=== PATIENT | male | born 1960 | race Hispanic/Latino ===

== ENCOUNTER 2021-03-03 22:07 | Inpatient (IN) | payer SELFPAY ==
[2021-03-03] MEDS ORDERED: Dextrose 5% in Water 1,000 ML IV PRN (22:33)
[2021-03-03] MEDS ORDERED: Calcium Carbonate 500 MG ChewTAB PO PRN (22:33)
[2021-03-03] MEDS ORDERED: HYDROcodone/Acetaminophen 5/325 mg Tablet PO PRN (22:33)
[2021-03-03] MEDS ORDERED: Ondansetron PF 4 MG/2 ML Vial IVP PRN (22:33)
[2021-03-03] MEDS ORDERED: Ventolin HFA Inhaler 60 PUFF INHALER INH PRN (22:37)
[2021-03-03] MEDS: Guaifenesin DM 100-10/5 ML UDCUP PO PRN (23:21)
[2021-03-04 04:20] LABS: #Monocytes 0.3 10x3/uL (0.0-1.1); #Neutrophils 4.9 10x3/uL (1.5-8.4); %Lymphocytes 4.9 % (18.0-47.0); %Monocytes 4.5 % (0.0-10.0); %Neutrophils 89.3 % (40.0-75.0); Mean Corpuscular HGB CONC 33.8 g/dL (32.0-36.0); Mean Corpuscular Hemoglobin 30.5 pg (27.0-33.0); Mean Corpuscular Volume 90.1 fl (81.2-95.1); Mean Platelet Volume 10.8 fl (7.4-10.4); Platelet Count 192 10x3/uL (150-450); RBC Distribution Width 11.9 % (11.5-14.5); Red Blood Cell (RBC) Count 3.94 10x6/uL (4.32-5.72); White Blood Cell (WBC) Count 5.5 10x3/uL (3.5-10.5)
[2021-03-04 04:37] LABS: ALT (SGPT) 17 U/L (8-55); AST (SGOT) 25 U/L (5-34); Alkaline Phosphatase 51 U/L (40-110); Anion Gap 14 mmol/L (10-20); BUN (Urea Nitrogen) 22 mg/dL (8.4-25.7); Bilirubin, Total 0.5 mg/dL (0.2-1.2); CRP (Inflammatory) 6.75 mg/dL (= or < 0.5); Calc. Creatinine Clearance 87 mL/min (70-130); Calcium 8.6 mg/dL (7.8-10.44); Carbon Dioxide 20 mmol/L (22-29); Chloride 107 mmol/L (98-107); Globulin 3.1 g/dL (2.4-3.5); Glucose 248 mg/dL (70-105); Potassium 4.1 mmol/L (3.5-5.1); Protein, Total 6.1 g/dL (6.0-8.3); Sodium 137 mmol/L (136-145)
[2021-03-04] MEDS: HumaLOG 300 UNITS/3 ML VIAL SC PRN ×4 (06:12→22:13)
[2021-03-04] MEDS ORDERED: metFORMIN 500 MG TAB PO SCH (08:00)
[2021-03-04] MEDS: Ascorbic Acid 500 mg Chewable Tablet PO SCH (08:33)
[2021-03-04] MEDS: Aspirin 81 mg Enteric Coated Tablet PO SCH (08:33)
[2021-03-04] MEDS: Enoxaparin Sodium 40 MG/0.4 ML SYRINGE SC SCH (08:33)
[2021-03-04] MEDS: Cholecalciferol 1,000 UNITS (25 MCG) TAB PO SCH (08:34)
[2021-03-04] MEDS: Lantus 1000 UNITS/10 ML VIAL SC SCH (08:34)
[2021-03-04] MEDS: Benzonatate 100 MG CAP PO SCH ×3 (08:34→20:05)
[2021-03-04] MEDS: Dexamethasone 4 mg/ml Vial SLOW IVP SCH (08:35)
[2021-03-04] MEDS ORDERED: Polyethylene Glycol 3350 17 GM Packet PO PRN (08:46)
[2021-03-04] MEDS ORDERED: REMDESIVIR 200 MG in Sodium Chloride 0.9% 250 ML 210 ML IV SCH (09:00)
[2021-03-04 09:10] LABS: Actual Bicarbonate (HCO3a) 21.9 mEq/L (22-28); Base Excess (BEa) -0.4 mEq/L (-2.0 to +3.0); CO2 Tension 29.6 mmHg (35.0-45.0); Calcium, Ionized (arterial) 1.11 mmol/L (1.12-1.30); Carboxyhemoglobin (COHb) 0.3 gm% (0.0-3.0); Critical Notified Whom: RN; Hemoglobin (Hb) 13.2 g/dL (14.0-18.0); O2 Tension (PaO2), arterial 47.2 mmHg (80.0-100.0); Potassium - ABG Lab 3.9 mmol/L (3.70-5.30); Puncture Site RRA; pH, Arterial 7.49 (7.35-7.45)
[2021-03-04] MEDS: BARICITINIB 2 MG TAB PO SCH (09:13)
[2021-03-04] MEDS: Polyethylene Glycol 3350 17 GM Packet PO SCH (09:40)
[2021-03-04 15:22] LABS: Legionella Urinary Ag Negative (Negative); Strep pneumo Urine Ag NEGATIVE (NEGATIVE)
[2021-03-05 04:28] LABS: ALT (SGPT) 18 U/L (8-55); AST (SGOT) 25 U/L (5-34); Albumin 2.9 g/dL (3.5-5.0); Alkaline Phosphatase 49 U/L (40-110); Anion Gap 14 mmol/L (10-20); BUN (Urea Nitrogen) 23 mg/dL (8.4-25.7); Bilirubin, Total 0.6 mg/dL (0.2-1.2); Calc. Creatinine Clearance 101 mL/min (70-130); Calcium 8.5 mg/dL (7.8-10.44); Carbon Dioxide 20 mmol/L (22-29); Chloride 109 mmol/L (98-107); Globulin 2.9 g/dL (2.4-3.5); Glucose 145 mg/dL (70-105); Potassium 3.9 mmol/L (3.5-5.1); Protein, Total 5.8 g/dL (6.0-8.3); Sodium 139 mmol/L (136-145)
[2021-03-05 04:56] LABS: Hemoglobin 11.8 g/dL (13.5-17.5); Mean Corpuscular HGB CONC 34.9 g/dL (32.0-36.0); Mean Corpuscular Volume 88.7 fl (81.2-95.1); Mean Platelet Volume 10.3 fl (7.4-10.4); Platelet Count 233 10x3/uL (150-450); RBC Distribution Width 12.1 % (11.5-14.5); Red Blood Cell (RBC) Count 3.81 10x6/uL (4.32-5.72); White Blood Cell (WBC) Count 4.7 10x3/uL (3.5-10.5)
[2021-03-05 06:51] LABS: Band 9 % (5-11); Lymphocytes 6 % (21-51); Monocytes 2 % (0-10)
[2021-03-05 06:52] LABS: Reactive Lymphocytes 5 % (0-10)
[2021-03-05 06:53] LABS: Large Platelets SLIGHT; Neutrophil 78 % (42-75)
[2021-03-05 06:54] LABS: MDiff Complete? YES; Platelet Morphology Comment Appears Adequate; RBC Morphology Normal
[2021-03-05 07:59] LABS: Actual Bicarbonate (HCO3a) 24.1 mEq/L (22-28); Base Excess (BEa) 1.9 mEq/L (-2.0 to +3.0); CO2 Tension 30.8 mmHg (35.0-45.0); Calcium, Ionized (arterial) 1.12 mmol/L (1.12-1.30); Carboxyhemoglobin (COHb) 0.3 gm% (0.0-3.0); Hemoglobin (Hb) 13.6 g/dL (14.0-18.0); Potassium - ABG Lab 3.7 mmol/L (3.70-5.30); Puncture Site RRA; pH, Arterial 7.51 (7.35-7.45)
[2021-03-05] MEDS: Dexamethasone 4 mg/ml Vial SLOW IVP SCH (08:11)
[2021-03-05] MEDS: Aspirin 81 mg Enteric Coated Tablet PO SCH (08:12)
[2021-03-05] MEDS: Enoxaparin Sodium 40 MG/0.4 ML SYRINGE SC SCH (08:12)
[2021-03-05] MEDS: Cholecalciferol 1,000 UNITS (25 MCG) TAB PO SCH (08:12)
[2021-03-05] MEDS: BARICITINIB 2 MG TAB PO SCH (08:12)
[2021-03-05] MEDS: Ascorbic Acid 500 mg Chewable Tablet PO SCH (08:12)
[2021-03-05] MEDS: Benzonatate 100 MG CAP PO SCH ×3 (08:12→20:56)
[2021-03-05] MEDS: Lantus 1000 UNITS/10 ML VIAL SC SCH (08:13)
[2021-03-05] MEDS: Polyethylene Glycol 3350 17 GM Packet PO SCH (08:13)
[2021-03-05] MEDS ORDERED: REMDESIVIR 100 MG in Sodium Chloride 0.9% 250 ML 230 ML IV SCH (09:00)
[2021-03-05] MEDS: Guaifenesin DM 100-10/5 ML UDCUP PO PRN ×2 (17:21→20:57)
[2021-03-06 05:09] LABS: #Monocytes 0.3 10x3/uL (0.0-1.1); #Neutrophils 6.2 10x3/uL (1.5-8.4); %Eosinophils 0.1 % (0.0-6.0); %Lymphocytes 7.7 % (18.0-47.0); %Monocytes 4.5 % (0.0-10.0); %Neutrophils 87.1 % (40.0-75.0); Hemoglobin 12.9 g/dL (13.5-17.5); Mean Corpuscular HGB CONC 35.2 g/dL (32.0-36.0); Mean Corpuscular Hemoglobin 31.2 pg (27.0-33.0); Mean Corpuscular Volume 88.6 fl (81.2-95.1); Mean Platelet Volume 10.3 fl (7.4-10.4); Platelet Count 280 10x3/uL (150-450); RBC Distribution Width 11.6 % (11.5-14.5); Red Blood Cell (RBC) Count 4.13 10x6/uL (4.32-5.72); White Blood Cell (WBC) Count 7.1 10x3/uL (3.5-10.5)
[2021-03-06 05:43] LABS: ALT (SGPT) 20 U/L (8-55); AST (SGOT) 32 U/L (5-34); Alkaline Phosphatase 59 U/L (40-110); Anion Gap 13 mmol/L (10-20); BUN (Urea Nitrogen) 23 mg/dL (8.4-25.7); Bilirubin, Total 0.8 mg/dL (0.2-1.2); Calc. Creatinine Clearance 110 mL/min (70-130); Calcium 8.2 mg/dL (7.8-10.44); Carbon Dioxide 22 mmol/L (22-29); Chloride 105 mmol/L (98-107); Globulin 2.6 g/dL (2.4-3.5); Glucose 91 mg/dL (70-105); Potassium 3.9 mmol/L (3.5-5.1); Protein, Total 5.6 g/dL (6.0-8.3); Sodium 136 mmol/L (136-145)
[2021-03-06] MEDS: Acetaminophen 325 MG TAB PO PRN ×2 (06:30→21:57)
[2021-03-06] MEDS: Dexamethasone 4 mg/ml Vial SLOW IVP SCH (07:52)
[2021-03-06] MEDS: Cholecalciferol 1,000 UNITS (25 MCG) TAB PO SCH (07:52)
[2021-03-06] MEDS: Enoxaparin Sodium 40 MG/0.4 ML SYRINGE SC SCH (07:52)
[2021-03-06] MEDS: BARICITINIB 2 MG TAB PO SCH (07:52)
[2021-03-06] MEDS: Aspirin 81 mg Enteric Coated Tablet PO SCH (07:52)
[2021-03-06] MEDS: Ascorbic Acid 500 mg Chewable Tablet PO SCH (07:52)
[2021-03-06] MEDS: Benzonatate 100 MG CAP PO SCH ×3 (07:52→21:57)
[2021-03-06] MEDS: Lantus 1000 UNITS/10 ML VIAL SC SCH (07:53)
[2021-03-06] MEDS: Polyethylene Glycol 3350 17 GM Packet PO SCH (07:53)
[2021-03-06] MEDS: HumaLOG 300 UNITS/3 ML VIAL SC PRN ×2 (13:07→17:21)
[2021-03-06] MEDS ORDERED: Lorazepam 2 MG/ML VIAL SLOW IVP PRN (17:31)
[2021-03-06] MEDS: Melatonin 3 MG TAB PO PRN (21:57)
[2021-03-07] MEDS: Acetaminophen 325 MG TAB PO PRN ×2 (03:45→20:35)
[2021-03-07] MEDS: Guaifenesin DM 100-10/5 ML UDCUP PO PRN (03:45)
[2021-03-07 04:10] LABS: #Eosinphils 0.1 10x3/uL (0.0-0.5); #Monocytes 0.2 10x3/uL (0.0-1.1); #Neutrophils 6.8 10x3/uL (1.5-8.4); %Basophils 0.1 % (0.0-2.0); %Eosinophils 0.9 % (0.0-6.0); %Lymphocytes 5.8 % (18.0-47.0); %Monocytes 3.1 % (0.0-10.0); %Neutrophils 89.4 % (40.0-75.0); Hemoglobin 13.9 g/dL (13.5-17.5); Mean Corpuscular HGB CONC 34.1 g/dL (32.0-36.0); Mean Corpuscular Hemoglobin 30.8 pg (27.0-33.0); Mean Corpuscular Volume 90.3 fl (81.2-95.1); Mean Platelet Volume 10.3 fl (7.4-10.4); Platelet Count 290 10x3/uL (150-450); Red Blood Cell (RBC) Count 4.52 10x6/uL (4.32-5.72); White Blood Cell (WBC) Count 7.6 10x3/uL (3.5-10.5)
[2021-03-07 04:14] LABS: ALT (SGPT) 24 U/L (8-55); AST (SGOT) 31 U/L (5-34); Albumin 3.1 g/dL (3.5-5.0); Alkaline Phosphatase 67 U/L (40-110); Anion Gap 17 mmol/L (10-20); BUN (Urea Nitrogen) 19 mg/dL (8.4-25.7); Bilirubin, Total 0.9 mg/dL (0.2-1.2); Calc. Creatinine Clearance 103 mL/min (70-130); Calcium 9.1 mg/dL (7.8-10.44); Carbon Dioxide 24 mmol/L (22-29); Chloride 103 mmol/L (98-107); Globulin 3.6 g/dL (2.4-3.5); Glucose 88 mg/dL (70-105); Potassium 4.1 mmol/L (3.5-5.1); Protein, Total 6.7 g/dL (6.0-8.3); Sodium 140 mmol/L (136-145)
[2021-03-07] MEDS: Aspirin 81 mg Enteric Coated Tablet PO SCH (07:18)
[2021-03-07] MEDS: Ascorbic Acid 500 mg Chewable Tablet PO SCH (07:18)
[2021-03-07] MEDS: Cholecalciferol 1,000 UNITS (25 MCG) TAB PO SCH (07:18)
[2021-03-07] MEDS: Dexamethasone 4 mg/ml Vial SLOW IVP SCH (07:19)
[2021-03-07] MEDS: Enoxaparin Sodium 40 MG/0.4 ML SYRINGE SC SCH (07:19)
[2021-03-07] MEDS: Benzonatate 100 MG CAP PO SCH ×3 (07:19→20:35)
[2021-03-07] MEDS: BARICITINIB 2 MG TAB PO SCH (07:19)
[2021-03-07] MEDS: Lantus 1000 UNITS/10 ML VIAL SC SCH (07:20)
[2021-03-07] MEDS: Polyethylene Glycol 3350 17 GM Packet PO SCH (07:21)
[2021-03-07] MEDS: Melatonin 3 MG TAB PO PRN (20:35)
[2021-03-07] MEDS: Loratadine 10 MG TAB PO PRN (23:15)
[2021-03-07] MEDS: HumaLOG 300 UNITS/3 ML VIAL SC PRN (23:36)
[2021-03-08] MEDS: Guaifenesin DM 100-10/5 ML UDCUP PO PRN ×2 (00:42→19:42)
[2021-03-08 04:30] LABS: ALT (SGPT) 19 U/L (8-55); AST (SGOT) 24 U/L (5-34); Albumin 2.7 g/dL (3.5-5.0); Alkaline Phosphatase 71 U/L (40-110); Anion Gap 13 mmol/L (10-20); BUN (Urea Nitrogen) 31 mg/dL (8.4-25.7); Bilirubin, Total 0.5 mg/dL (0.2-1.2); Calc. Creatinine Clearance 97 mL/min (70-130); Calcium 8.4 mg/dL (7.8-10.44); Carbon Dioxide 23 mmol/L (22-29); Chloride 101 mmol/L (98-107); Globulin 3.1 g/dL (2.4-3.5); Glucose 277 mg/dL (70-105); Potassium 4.2 mmol/L (3.5-5.1); Protein, Total 5.8 g/dL (6.0-8.3); Sodium 133 mmol/L (136-145)
[2021-03-08 04:36] LABS: #Eosinphils 0.1 10x3/uL (0.0-0.5); #Monocytes 0.4 10x3/uL (0.0-1.1); #Neutrophils 7.8 10x3/uL (1.5-8.4); %Basophils 0.1 % (0.0-2.0); %Eosinophils 0.6 % (0.0-6.0); %Lymphocytes 3.7 % (18.0-47.0); %Monocytes 4.8 % (0.0-10.0); %Neutrophils 90.1 % (40.0-75.0); Hemoglobin 12.1 g/dL (13.5-17.5); Mean Corpuscular HGB CONC 33.3 g/dL (32.0-36.0); Mean Corpuscular Hemoglobin 30.3 pg (27.0-33.0); Mean Platelet Volume 10.6 fl (7.4-10.4); Platelet Count 284 10x3/uL (150-450); RBC Distribution Width 11.9 % (11.5-14.5); Red Blood Cell (RBC) Count 3.99 10x6/uL (4.32-5.72); White Blood Cell (WBC) Count 8.6 10x3/uL (3.5-10.5)
[2021-03-08] MEDS: HumaLOG 300 UNITS/3 ML VIAL SC PRN ×4 (05:41→23:59)
[2021-03-08] MEDS: Dexamethasone 4 mg/ml Vial SLOW IVP SCH (09:31)
[2021-03-08] MEDS: Enoxaparin Sodium 40 MG/0.4 ML SYRINGE SC SCH (09:31)
[2021-03-08] MEDS: Polyethylene Glycol 3350 17 GM Packet PO SCH (09:31)
[2021-03-08] MEDS: BARICITINIB 2 MG TAB PO SCH (09:32)
[2021-03-08] MEDS: Cholecalciferol 1,000 UNITS (25 MCG) TAB PO SCH (09:32)
[2021-03-08] MEDS: Benzonatate 100 MG CAP PO SCH ×3 (09:32→19:42)
[2021-03-08] MEDS: Aspirin 81 mg Enteric Coated Tablet PO SCH (09:32)
[2021-03-08] MEDS: Lantus 1000 UNITS/10 ML VIAL SC SCH (09:37)
[2021-03-08] MEDS: Ascorbic Acid 500 mg Chewable Tablet PO SCH (09:37)
[2021-03-08] MEDS: Melatonin 3 MG TAB PO PRN (19:42)
[2021-03-08] MEDS: Loratadine 10 MG TAB PO PRN (19:42)
[2021-03-08] MEDS: Acetaminophen 325 MG TAB PO PRN (19:43)
[2021-03-09] MEDS: Guaifenesin DM 100-10/5 ML UDCUP PO PRN ×3 (00:57→20:10)
[2021-03-09] MEDS: HumaLOG 300 UNITS/3 ML VIAL SC PRN ×2 (04:08→13:00)
[2021-03-09 04:22] LABS: #Eosinphils 0.1 10x3/uL (0.0-0.5); #Monocytes 0.4 10x3/uL (0.0-1.1); #Neutrophils 7.8 10x3/uL (1.5-8.4); %Basophils 0.1 % (0.0-2.0); %Eosinophils 0.9 % (0.0-6.0); %Lymphocytes 2.9 % (18.0-47.0); %Monocytes 4.1 % (0.0-10.0); %Neutrophils 91.1 % (40.0-75.0); Hemoglobin 12.1 g/dL (13.5-17.5); Mean Corpuscular HGB CONC 33.8 g/dL (32.0-36.0); Mean Corpuscular Hemoglobin 30.4 pg (27.0-33.0); Mean Corpuscular Volume 89.9 fl (81.2-95.1); Platelet Count 320 10x3/uL (150-450); RBC Distribution Width 11.9 % (11.5-14.5); Red Blood Cell (RBC) Count 3.98 10x6/uL (4.32-5.72); White Blood Cell (WBC) Count 8.6 10x3/uL (3.5-10.5)
[2021-03-09 04:25] LABS: ALT (SGPT) 16 U/L (8-55); AST (SGOT) 16 U/L (5-34); Albumin 2.7 g/dL (3.5-5.0); Alkaline Phosphatase 70 U/L (40-110); Anion Gap 17 mmol/L (10-20); BUN (Urea Nitrogen) 25 mg/dL (8.4-25.7); Bilirubin, Total 0.6 mg/dL (0.2-1.2); Calc. Creatinine Clearance 114 mL/min (70-130); Calcium 8.4 mg/dL (7.8-10.44); Carbon Dioxide 22 mmol/L (22-29); Chloride 101 mmol/L (98-107); Globulin 2.7 g/dL (2.4-3.5); Glucose 214 mg/dL (70-105); Potassium 4.4 mmol/L (3.5-5.1); Protein, Total 5.4 g/dL (6.0-8.3); Sodium 136 mmol/L (136-145)
[2021-03-09] MEDS: Acetaminophen 325 MG TAB PO PRN ×2 (06:37→13:09)
[2021-03-09] MEDS: Lantus 1000 UNITS/10 ML VIAL SC SCH (08:30)
[2021-03-09] MEDS: Polyethylene Glycol 3350 17 GM Packet PO SCH (08:30)
[2021-03-09] MEDS: Dexamethasone 4 mg/ml Vial SLOW IVP SCH (08:30)
[2021-03-09] MEDS: Ascorbic Acid 500 mg Chewable Tablet PO SCH (08:30)
[2021-03-09] MEDS: Cholecalciferol 1,000 UNITS (25 MCG) TAB PO SCH (08:30)
[2021-03-09] MEDS: Enoxaparin Sodium 40 MG/0.4 ML SYRINGE SC SCH (08:31)
[2021-03-09] MEDS: Aspirin 81 mg Enteric Coated Tablet PO SCH (08:31)
[2021-03-09] MEDS: Benzonatate 100 MG CAP PO SCH ×3 (08:31→20:11)
[2021-03-09] MEDS: BARICITINIB 2 MG TAB PO SCH (08:31)
[2021-03-09 14:47] LABS: Actual Bicarbonate (HCO3a) 28.2 mEq/L (22-28); Base Excess (BEa) 5.5 mEq/L (-2.0 to +3.0); CO2 Tension 34.7 mmHg (35.0-45.0); Calcium, Ionized (arterial) 1.11 mmol/L (1.12-1.30); Carboxyhemoglobin (COHb) 0.3 gm% (0.0-3.0); Critical Notified Whom: MD; Potassium - ABG Lab 4.5 mmol/L (3.70-5.30); Puncture Site RRA; pH, Arterial 7.53 (7.35-7.45)
[2021-03-09 14:55] LABS: ALV-art Gradient 391.725 mmHg (0-20)
[2021-03-09] MEDS: Dexamethasone 20 MG/5 ML VIAL SLOW IVP SCH (20:15)
[2021-03-09] MEDS: Enoxaparin Sodium 80 MG/0.8 ML SYRINGE SC SCH (23:22)
[2021-03-10] MEDS: HumaLOG 300 UNITS/3 ML VIAL SC PRN ×4 (00:46→17:09)
[2021-03-10] MEDS: Acetaminophen 325 MG TAB PO PRN (03:10)
[2021-03-10] MEDS: Guaifenesin DM 100-10/5 ML UDCUP PO PRN ×2 (03:10→14:15)
[2021-03-10 04:20] LABS: Anion Gap 17 mmol/L (10-20); BUN (Urea Nitrogen) 25 mg/dL (8.4-25.7); Calc. Creatinine Clearance 111 mL/min (70-130); Calcium 8.6 mg/dL (7.8-10.44); Carbon Dioxide 21 mmol/L (22-29); Chloride 104 mmol/L (98-107); Glucose 305 mg/dL (70-105); Sodium 137 mmol/L (136-145)
[2021-03-10 04:35] LABS: Potassium 5.4 mmol/L (3.5-5.1)
[2021-03-10] MEDS: Dexamethasone 20 MG/5 ML VIAL SLOW IVP SCH ×3 (05:29→20:23)
[2021-03-10] MEDS ORDERED: Lantus 1000 UNITS/10 ML VIAL SC SCH (08:00)
[2021-03-10] MEDS: Aspirin 81 mg Enteric Coated Tablet PO SCH (08:39)
[2021-03-10] MEDS: Cholecalciferol 1,000 UNITS (25 MCG) TAB PO SCH (08:39)
[2021-03-10] MEDS: Benzonatate 100 MG CAP PO SCH ×3 (08:39→20:23)
[2021-03-10] MEDS: BARICITINIB 2 MG TAB PO SCH (08:39)
[2021-03-10] MEDS: Enoxaparin Sodium 80 MG/0.8 ML SYRINGE SC SCH ×2 (08:39→20:24)
[2021-03-10] MEDS: Polyethylene Glycol 3350 17 GM Packet PO SCH (08:39)
[2021-03-10] MEDS: Ascorbic Acid 500 mg Chewable Tablet PO SCH (08:39)
[2021-03-10] MEDS: Lantus 1000 UNITS/10 ML VIAL SC SCH (08:42)
[2021-03-10 09:14] LABS: Actual Bicarbonate (HCO3a) 28.7 mEq/L (22-28); Base Excess (BEa) 5.6 mEq/L (-2.0 to +3.0); CO2 Tension 36.6 mmHg (35.0-45.0); Calcium, Ionized (arterial) 1.15 mmol/L (1.12-1.30); Carboxyhemoglobin (COHb) 0.1 gm% (0.0-3.0); Hemoglobin (Hb) 13.3 g/dL (14.0-18.0); O2 Tension (PaO2), arterial 47.3 mmHg (80.0-100.0); Potassium - ABG Lab 4.3 mmol/L (3.70-5.30); Puncture Site LRA; pH, Arterial 7.51 (7.35-7.45)
[2021-03-11 04:24] LABS: #Monocytes 0.4 10x3/uL (0.0-1.1); #Neutrophils 7.7 10x3/uL (1.5-8.4); %Basophils 0.1 % (0.0-2.0); %Eosinophils 0.1 % (0.0-6.0); %Lymphocytes 2.3 % (18.0-47.0); %Monocytes 4.6 % (0.0-10.0); %Neutrophils 92.3 % (40.0-75.0); Hemoglobin 12.2 g/dL (13.5-17.5); Mean Corpuscular HGB CONC 33.4 g/dL (32.0-36.0); Mean Corpuscular Hemoglobin 30.3 pg (27.0-33.0); Mean Corpuscular Volume 90.6 fl (81.2-95.1); Mean Platelet Volume 10.7 fl (7.4-10.4); Platelet Count 385 10x3/uL (150-450); RBC Distribution Width 12.1 % (11.5-14.5); Red Blood Cell (RBC) Count 4.03 10x6/uL (4.32-5.72); White Blood Cell (WBC) Count 8.3 10x3/uL (3.5-10.5)
[2021-03-11 04:46] LABS: Anion Gap 18 mmol/L (10-20); BUN (Urea Nitrogen) 30 mg/dL (8.4-25.7); Calc. Creatinine Clearance 124 mL/min (70-130); Calcium 8.9 mg/dL (7.8-10.44); Carbon Dioxide 22 mmol/L (22-29); Chloride 104 mmol/L (98-107); Glucose 228 mg/dL (70-105); Potassium 4.6 mmol/L (3.5-5.1); Sodium 139 mmol/L (136-145)
[2021-03-11] MEDS: Dexamethasone 20 MG/5 ML VIAL SLOW IVP SCH (05:31)
[2021-03-11] MEDS: HumaLOG 300 UNITS/3 ML VIAL SC PRN ×2 (05:32→08:42)
[2021-03-11 08:17] LABS: Actual Bicarbonate (HCO3a) 28.9 mEq/L (22-28); Base Excess (BEa) 5.9 mEq/L (-2.0 to +3.0); CO2 Tension 36.2 mmHg (35.0-45.0); Calcium, Ionized (arterial) 1.13 mmol/L (1.12-1.30); Carboxyhemoglobin (COHb) 0.3 gm% (0.0-3.0); Hemoglobin (Hb) 12.6 g/dL (14.0-18.0); O2 Tension (PaO2), arterial 70.3 mmHg (80.0-100.0); Potassium - ABG Lab 4.4 mmol/L (3.70-5.30); Puncture Site LRA; pH, Arterial 7.52 (7.35-7.45)
[2021-03-11] MEDS: Enoxaparin Sodium 80 MG/0.8 ML SYRINGE SC SCH ×2 (08:40→20:11)
[2021-03-11] MEDS: BARICITINIB 2 MG TAB PO SCH (08:40)
[2021-03-11] MEDS: Benzonatate 100 MG CAP PO SCH ×3 (08:40→20:12)
[2021-03-11] MEDS: Ascorbic Acid 500 mg Chewable Tablet PO SCH (08:40)
[2021-03-11] MEDS: Cholecalciferol 1,000 UNITS (25 MCG) TAB PO SCH (08:40)
[2021-03-11] MEDS: Aspirin 81 mg Enteric Coated Tablet PO SCH (08:40)
[2021-03-11] MEDS: Polyethylene Glycol 3350 17 GM Packet PO SCH (08:41)
[2021-03-11] MEDS: Lantus 1000 UNITS/10 ML VIAL SC SCH (08:42)
[2021-03-11] MEDS: Guaifenesin DM 100-10/5 ML UDCUP PO PRN (21:10)
[2021-03-11] MEDS: Acetaminophen 325 MG TAB PO PRN (21:10)
[2021-03-12 04:05] LABS: #Eosinphils 0.3 10x3/uL (0.0-0.5); #Monocytes 0.5 10x3/uL (0.0-1.1); #Neutrophils 12.8 10x3/uL (1.5-8.4); %Basophils 0.1 % (0.0-2.0); %Eosinophils 1.8 % (0.0-6.0); %Lymphocytes 2.6 % (18.0-47.0); %Monocytes 3.6 % (0.0-10.0); %Neutrophils 91.1 % (40.0-75.0); Hemoglobin 13.8 g/dL (13.5-17.5); Mean Corpuscular HGB CONC 33.2 g/dL (32.0-36.0); Mean Corpuscular Hemoglobin 30.6 pg (27.0-33.0); Mean Corpuscular Volume 92.2 fl (81.2-95.1); Mean Platelet Volume 10.1 fl (7.4-10.4); Platelet Count 442 10x3/uL (150-450); RBC Distribution Width 12.2 % (11.5-14.5); Red Blood Cell (RBC) Count 4.51 10x6/uL (4.32-5.72)
[2021-03-12 04:20] LABS: Anion Gap 18 mmol/L (10-20); BUN (Urea Nitrogen) 33 mg/dL (8.4-25.7); Calc. Creatinine Clearance 109 mL/min (70-130); Calcium 9.2 mg/dL (7.8-10.44); Carbon Dioxide 26 mmol/L (22-29); Chloride 103 mmol/L (98-107); Glucose 117 mg/dL (70-105); Potassium 5.5 mmol/L (3.5-5.1); Sodium 141 mmol/L (136-145)
[2021-03-12] MEDS: Guaifenesin DM 100-10/5 ML UDCUP PO PRN (04:38)
[2021-03-12 08:30] LABS: Actual Bicarbonate (HCO3a) 28.5 mEq/L (22-28); Base Excess (BEa) 5.5 mEq/L (-2.0 to +3.0); CO2 Tension 36.1 mmHg (35.0-45.0); Calcium, Ionized (arterial) 1.12 mmol/L (1.12-1.30); Carboxyhemoglobin (COHb) 0.8 gm% (0.0-3.0); Hemoglobin (Hb) 14.6 g/dL (14.0-18.0); O2 Tension (PaO2), arterial 49.7 mmHg (80.0-100.0); Potassium - ABG Lab 4.2 mmol/L (3.70-5.30); Puncture Site RRA; pH, Arterial 7.52 (7.35-7.45)
[2021-03-12 08:34] LABS: ALV-art Gradient 582.525 mmHg (0-20)
[2021-03-12] MEDS: Dexamethasone 20 MG/5 ML VIAL SLOW IVP SCH (10:52)
[2021-03-12] MEDS: Enoxaparin Sodium 80 MG/0.8 ML SYRINGE SC SCH ×2 (10:53→20:23)
[2021-03-12] MEDS: Cholecalciferol 1,000 UNITS (25 MCG) TAB PO SCH (10:54)
[2021-03-12] MEDS: BARICITINIB 2 MG TAB PO SCH (10:54)
[2021-03-12] MEDS: Aspirin 81 mg Enteric Coated Tablet PO SCH (10:54)
[2021-03-12] MEDS: Benzonatate 100 MG CAP PO SCH ×3 (10:54→20:23)
[2021-03-12] MEDS: Ascorbic Acid 500 mg Chewable Tablet PO SCH (10:54)
[2021-03-12] MEDS: Lantus 1000 UNITS/10 ML VIAL SC SCH (10:55)
[2021-03-12] MEDS: Polyethylene Glycol 3350 17 GM Packet PO SCH (10:55)
[2021-03-12] MEDS ORDERED: Lidocaine 1% PF 5 ML VIAL ONE (11:45)
[2021-03-12] MEDS ORDERED: Sodium Bicarbonate 2.5 MEQ/5 ML VIAL ONE (11:46)
[2021-03-12] MEDS: HumaLOG 300 UNITS/3 ML VIAL SC PRN ×2 (15:00→21:10)
[2021-03-13 08:30] LABS: Anion Gap 13 mmol/L (10-20); BUN (Urea Nitrogen) 33 mg/dL (8.4-25.7); Calc. Creatinine Clearance 115 mL/min (70-130); Calcium 8.7 mg/dL (7.8-10.44); Carbon Dioxide 27 mmol/L (22-29); Chloride 103 mmol/L (98-107); Glucose 203 mg/dL (70-105); Potassium 4.5 mmol/L (3.5-5.1); Sodium 138 mmol/L (136-145)
[2021-03-13] MEDS ORDERED: Propofol 1,000 MG/100 ML VIAL IV ONE (09:07)
[2021-03-13 09:51] LABS: CO2 Tension 34.9 mmHg (35.0-45.0)
[2021-03-13] MEDS: Dexamethasone 20 MG/5 ML VIAL SLOW IVP SCH (10:30)
[2021-03-13] MEDS: Polyethylene Glycol 3350 17 GM Packet PO SCH (10:31)
[2021-03-13] MEDS: Ascorbic Acid 500 mg Chewable Tablet PO SCH (10:31)
[2021-03-13] MEDS: Aspirin 81 mg Enteric Coated Tablet PO SCH (10:31)
[2021-03-13] MEDS: Lantus 1000 UNITS/10 ML VIAL SC SCH (10:32)
[2021-03-13] MEDS: Benzonatate 100 MG CAP PO SCH ×3 (10:33→20:17)
[2021-03-13] MEDS: Cholecalciferol 1,000 UNITS (25 MCG) TAB PO SCH (10:35)
[2021-03-13] MEDS ORDERED: DISCONTINUE PREVIOUS NARCOTIC PAIN MEDICATIONS AND BENZODIAZEPINES FS SCH (10:45)
[2021-03-13] MEDS ORDERED: Morphine 2 MG/ML VIAL SLOW IVP PRN (10:45)
[2021-03-13] MEDS ORDERED: Propofol BOLUS 1,000 MG/100 ML VIAL IV PRN (10:45)
[2021-03-13] MEDS: Enoxaparin Sodium 80 MG/0.8 ML SYRINGE SC SCH ×2 (11:01→20:46)
[2021-03-13] MEDS: Fentanyl BOLUS 250 ML IVPB PRN (11:02)
[2021-03-13] MEDS ORDERED: Succinylcholine 200 MG/10 ml SYRINGE FS ONE (12:00)
[2021-03-13] MEDS ORDERED: Piperacillin/Tazobactam 3.375 GM in Sodium Chloride 0.9% 100 ML IVPB SCH ×2 (12:00→13:00)
[2021-03-13 14:23] LABS: ALV-art Gradient 558.875 mmHg (0-20); Actual Bicarbonate (HCO3a) 26.4 mEq/L (22-28); Base Excess (BEa) 3.4 mEq/L (-2.0 to +3.0); Calcium, Ionized (arterial) 1.14 mmol/L (1.12-1.30); Carboxyhemoglobin (COHb) 0.7 gm% (0.0-3.0); Hemoglobin (Hb) 13.7 g/dL (14.0-18.0); O2 Tension (PaO2), arterial 39.2 mmHg (80.0-100.0); Puncture Site LRA
[2021-03-13] MEDS: Propofol 1,000 MG/100 ML VIAL IV PRN (15:17)
[2021-03-13 15:30] LABS: #Monocytes 0.4 10x3/uL (0.0-1.1); #Neutrophils 18.4 10x3/uL (1.5-8.4); %Basophils 0.1 % (0.0-2.0); %Eosinophils 0.2 % (0.0-6.0); %Lymphocytes 1.1 % (18.0-47.0); %Monocytes 2.2 % (0.0-10.0); %Neutrophils 95.7 % (40.0-75.0); Hemoglobin 11.4 g/dL (13.5-17.5); Mean Corpuscular HGB CONC 33.2 g/dL (32.0-36.0); Mean Corpuscular Volume 93.2 fl (81.2-95.1); Mean Platelet Volume 10.5 fl (7.4-10.4); Platelet Count 354 10x3/uL (150-450); RBC Distribution Width 12.1 % (11.5-14.5); Red Blood Cell (RBC) Count 3.68 10x6/uL (4.32-5.72); White Blood Cell (WBC) Count 19.2 10x3/uL (3.5-10.5)
[2021-03-13 15:34] LABS: #Monocytes 0.5 10x3/uL (0.0-1.1); #Neutrophils 9.9 10x3/uL (1.5-8.4); %Eosinophils 0.3 % (0.0-6.0); %Monocytes 4.1 % (0.0-10.0); Hemoglobin 12.1 g/dL (13.5-17.5); Mean Corpuscular HGB CONC 34.1 g/dL (32.0-36.0); Mean Platelet Volume 10.5 fl (7.4-10.4); Platelet Count 331 10x3/uL (150-450); RBC Distribution Width 12.3 % (11.5-14.5); White Blood Cell (WBC) Count 10.9 10x3/uL (3.5-10.5)
[2021-03-13] MEDS: Vancomycin HCl 1 GM in Sodium Chloride 0.9% 250 ML 250 ML IVPB SCH (15:35)
[2021-03-13 15:44] LABS: ALT (SGPT) 41 U/L (8-55); AST (SGOT) 23 U/L (5-34); Albumin 2.6 g/dL (3.5-5.0); Alkaline Phosphatase 74 U/L (40-110); Anion Gap 14 mmol/L (10-20); BUN (Urea Nitrogen) 43 mg/dL (8.4-25.7); Calc. Creatinine Clearance 74 mL/min (70-130); Calcium 8.1 mg/dL (7.8-10.44); Carbon Dioxide 26 mmol/L (22-29); Chloride 103 mmol/L (98-107); Globulin 2.5 g/dL (2.4-3.5); Glucose 175 mg/dL (70-105); Protein, Total 5.1 g/dL (6.0-8.3); Sodium 138 mmol/L (136-145)
[2021-03-13 15:48] LABS: Critical Notified By: EA; Critical Notified Time 1142
[2021-03-13 15:49] LABS: Actual Bicarbonate (HCO3a) 26.3 mEq/L (22-28); Base Excess (BEa) 1.3 mEq/L (-2.0 to +3.0); CO2 Tension 42.9 mmHg (35.0-45.0); O2 Tension (PaO2), arterial 79.4 mmHg (80.0-100.0)
[2021-03-13 15:50] LABS: Hemoglobin (Hb) 12.7 g/dL (14.0-18.0)
[2021-03-13 15:51] LABS: Calcium, Ionized (arterial) 1.13 mmol/L (1.12-1.30); Potassium - ABG Lab 4.3 mmol/L (3.70-5.30)
[2021-03-13 15:52] LABS: Puncture Site LRA
[2021-03-13 15:54] LABS: ALV-art Gradient 579.975 mmHg (0-20)
[2021-03-13] MEDS: Piperacillin/Tazobactam 3.375 GM in Sodium Chloride 0.9% 100 ML IVPB SCH (17:56)
[2021-03-13] MEDS ORDERED: Norepinephrine 8 MG/0.9% NS 250 ML ONE (20:21)
[2021-03-13] MEDS: Midazolam HCl 100 MG in Premix Bag 1 BAG IVPB PRN (20:46)
[2021-03-14] MEDS: Piperacillin/Tazobactam 3.375 GM in Sodium Chloride 0.9% 100 ML IVPB SCH ×3 (01:29→16:01)
[2021-03-14] MEDS: Vancomycin HCl 1 GM in Sodium Chloride 0.9% 250 ML 250 ML IVPB SCH ×2 (02:08→15:01)
[2021-03-14] MEDS ORDERED: Sodium Chloride 0.9% 250 ML 250 ML ONE ×3 (02:08)
[2021-03-14] MEDS: fentaNYL Citrate-0.9 % NaCl/PF 100 ML IVPB SCH (02:09)
[2021-03-14 04:47] LABS: #Monocytes 0.7 10x3/uL (0.0-1.1); #Neutrophils 17.6 10x3/uL (1.5-8.4); %Basophils 0.2 % (0.0-2.0); %Eosinophils 0.2 % (0.0-6.0); %Lymphocytes 2.4 % (18.0-47.0); %Monocytes 3.5 % (0.0-10.0); %Neutrophils 92.9 % (40.0-75.0); Hemoglobin 10.4 g/dL (13.5-17.5); Mean Corpuscular HGB CONC 32.6 g/dL (32.0-36.0); Mean Corpuscular Hemoglobin 30.5 pg (27.0-33.0); Mean Corpuscular Volume 93.5 fl (81.2-95.1); Platelet Count 390 10x3/uL (150-450); RBC Distribution Width 12.4 % (11.5-14.5); Red Blood Cell (RBC) Count 3.41 10x6/uL (4.32-5.72); White Blood Cell (WBC) Count 18.9 10x3/uL (3.5-10.5)
[2021-03-14 05:20] LABS: ALT (SGPT) 33 U/L (8-55); AST (SGOT) 28 U/L (5-34); Albumin 2.5 g/dL (3.5-5.0); Alkaline Phosphatase 67 U/L (40-110); Anion Gap 15 mmol/L (10-20); BUN (Urea Nitrogen) 31 mg/dL (8.4-25.7); Bilirubin, Total 0.8 mg/dL (0.2-1.2); Calc. Creatinine Clearance 113 mL/min (70-130); Calcium 8.5 mg/dL (7.8-10.44); Carbon Dioxide 24 mmol/L (22-29); Chloride 107 mmol/L (98-107); Globulin 3.1 g/dL (2.4-3.5); Glucose 113 mg/dL (70-105); Potassium 4.7 mmol/L (3.5-5.1); Protein, Total 5.6 g/dL (6.0-8.3); Sodium 141 mmol/L (136-145)
[2021-03-14 08:04] LABS: Actual Bicarbonate (HCO3a) 25.6 mEq/L (22-28); Base Excess (BEa) 0.4 mEq/L (-2.0 to +3.0); CO2 Tension 43.4 mmHg (35.0-45.0); Calcium, Ionized (arterial) 1.15 mmol/L (1.12-1.30); Carboxyhemoglobin (COHb) 0.1 gm% (0.0-3.0); Hemoglobin (Hb) 11.1 g/dL (14.0-18.0); O2 Tension (PaO2), arterial 66.3 mmHg (80.0-100.0); Potassium - ABG Lab 3.9 mmol/L (3.70-5.30); pH, Arterial 7.39 (7.35-7.45)
[2021-03-14] MEDS: Lantus 1000 UNITS/10 ML VIAL SC SCH (08:05)
[2021-03-14] MEDS ORDERED: Sodium Chloride 0.9% 100 ML ONE (08:20)
[2021-03-14] MEDS: Midazolam HCl 100 MG in Premix Bag 1 BAG IVPB PRN ×2 (08:25→20:51)
[2021-03-14] MEDS: Enoxaparin Sodium 80 MG/0.8 ML SYRINGE SC SCH (08:28)
[2021-03-14] MEDS: Dexamethasone 20 MG/5 ML VIAL SLOW IVP SCH (08:28)
[2021-03-14] MEDS: Polyethylene Glycol 3350 17 GM Packet PO SCH (08:28)
[2021-03-14] MEDS: Ascorbic Acid 500 mg Chewable Tablet PO SCH (08:28)
[2021-03-14] MEDS: Cholecalciferol 1,000 UNITS (25 MCG) TAB PO SCH (08:28)
[2021-03-14] MEDS: Aspirin 81 mg Enteric Coated Tablet PO SCH (08:29)
[2021-03-14] MEDS ORDERED: Albumin 25% 25 GM/100 ML BOT IVPB SCH (09:16)
[2021-03-14] MEDS: Benzonatate 100 MG CAP PO SCH ×2 (10:09→23:20)
[2021-03-14] MEDS ORDERED: Albumin 25% 100 ML ONE (10:24)
[2021-03-14] MEDS: Acetaminophen 325 MG TAB PO PRN (11:00)
[2021-03-14] MEDS: Enoxaparin Sodium 40 MG/0.4 ML SYRINGE SC SCH (21:00)
[2021-03-15] MEDS: Piperacillin/Tazobactam 3.375 GM in Sodium Chloride 0.9% 100 ML IVPB SCH ×3 (00:28→17:01)
[2021-03-15] MEDS: Vancomycin HCl 1 GM in Sodium Chloride 0.9% 250 ML 250 ML IVPB SCH ×2 (03:37→15:21)
[2021-03-15] MEDS: fentaNYL Citrate-0.9 % NaCl/PF 100 ML IVPB SCH (03:57)
[2021-03-15 04:10] LABS: #Eosinphils 0.3 10x3/uL (0.0-0.5); #Monocytes 0.6 10x3/uL (0.0-1.1); %Basophils 0.1 % (0.0-2.0); %Eosinophils 1.6 % (0.0-6.0); %Lymphocytes 2.5 % (18.0-47.0); %Monocytes 3.8 % (0.0-10.0); %Neutrophils 91.2 % (40.0-75.0); Hemoglobin 9.9 g/dL (13.5-17.5); Mean Corpuscular HGB CONC 32.8 g/dL (32.0-36.0); Mean Corpuscular Hemoglobin 30.7 pg (27.0-33.0); Mean Corpuscular Volume 93.8 fl (81.2-95.1); Mean Platelet Volume 10.2 fl (7.4-10.4); Platelet Count 327 10x3/uL (150-450); RBC Distribution Width 12.3 % (11.5-14.5); Red Blood Cell (RBC) Count 3.22 10x6/uL (4.32-5.72); White Blood Cell (WBC) Count 15.4 10x3/uL (3.5-10.5)
[2021-03-15 04:22] LABS: Anion Gap 15 mmol/L (10-20); BUN (Urea Nitrogen) 21 mg/dL (8.4-25.7); CRP (Inflammatory) 11.97 mg/dL (= or < 0.5); Calc. Creatinine Clearance 117 mL/min (70-130); Calcium 7.8 mg/dL (7.8-10.44); Carbon Dioxide 23 mmol/L (22-29); Chloride 107 mmol/L (98-107); Glucose 156 mg/dL (70-105); Sodium 141 mmol/L (136-145)
[2021-03-15] MEDS: Norepinephrine 8 MG/0.9% NS 250 ML IVPB SCH (07:24)
[2021-03-15] MEDS: Ascorbic Acid 500 mg Chewable Tablet PO SCH (07:58)
[2021-03-15] MEDS: Aspirin 81 mg Enteric Coated Tablet PO SCH (07:59)
[2021-03-15] MEDS: Cholecalciferol 1,000 UNITS (25 MCG) TAB PO SCH (07:59)
[2021-03-15] MEDS: Benzonatate 100 MG CAP PO SCH ×6 (08:00→23:28)
[2021-03-15] MEDS: Dexamethasone 20 MG/5 ML VIAL SLOW IVP SCH (08:02)
[2021-03-15] MEDS: Enoxaparin Sodium 40 MG/0.4 ML SYRINGE SC SCH ×2 (08:03→20:46)
[2021-03-15 08:06] LABS: Actual Bicarbonate (HCO3a) 27.5 mEq/L (22-28); Base Excess (BEa) 1.5 mEq/L (-2.0 to +3.0); CO2 Tension 49.9 mmHg (35.0-45.0); Calcium, Ionized (arterial) 1.09 mmol/L (1.12-1.30); Carboxyhemoglobin (COHb) 1.3 gm% (0.0-3.0); Hemoglobin (Hb) 11.1 g/dL (14.0-18.0); O2 Tension (PaO2), arterial 41.7 mmHg (80.0-100.0); Potassium - ABG Lab 4.4 mmol/L (3.70-5.30); Puncture Site RBA; pH, Arterial 7.36 (7.35-7.45)
[2021-03-15] MEDS: Polyethylene Glycol 3350 17 GM Packet PO SCH (08:06)
[2021-03-15 08:11] LABS: ALV-art Gradient 395.025 mmHg (0-20)
[2021-03-15] MEDS: Lantus 1000 UNITS/10 ML VIAL SC SCH (09:15)
[2021-03-15] MEDS: Midazolam HCl 100 MG in Premix Bag 1 BAG IVPB PRN ×2 (09:30→23:16)
[2021-03-15] MEDS: Acetaminophen 325 MG TAB PO PRN (09:30)
[2021-03-15] MEDS: Micafungin 100 MG in Sodium Chloride 0.9% 100 ML IVPB SCH (11:22)
[2021-03-15] MEDS: HumaLOG 300 UNITS/3 ML VIAL SC PRN ×2 (17:02→23:09)
[2021-03-15] MEDS ORDERED: Furosemide 40 MG/4 ML VIAL SLOW IVP SCH (20:30)
[2021-03-16] MEDS: Piperacillin/Tazobactam 3.375 GM in Sodium Chloride 0.9% 100 ML IVPB SCH ×4 (00:02→23:52)
[2021-03-16] MEDS: Vancomycin HCl 1 GM in Sodium Chloride 0.9% 250 ML 250 ML IVPB SCH ×3 (03:06→20:18)
[2021-03-16] MEDS: Benzonatate 100 MG CAP PO SCH ×4 (03:06→19:29)
[2021-03-16 04:34] LABS: #Monocytes 0.7 10x3/uL (0.0-1.1); #Neutrophils 13.3 10x3/uL (1.5-8.4); %Basophils 0.1 % (0.0-2.0); %Lymphocytes 2.2 % (18.0-47.0); %Monocytes 5.1 % (0.0-10.0); %Neutrophils 91.8 % (40.0-75.0); Hemoglobin 9.6 g/dL (13.5-17.5); Mean Corpuscular HGB CONC 32.4 g/dL (32.0-36.0); Mean Corpuscular Hemoglobin 30.4 pg (27.0-33.0); Mean Corpuscular Volume 93.7 fl (81.2-95.1); Platelet Count 328 10x3/uL (150-450); RBC Distribution Width 12.4 % (11.5-14.5); Red Blood Cell (RBC) Count 3.16 10x6/uL (4.32-5.72); White Blood Cell (WBC) Count 14.4 10x3/uL (3.5-10.5)
[2021-03-16 04:39] LABS: Anion Gap 15 mmol/L (10-20); BUN (Urea Nitrogen) 23 mg/dL (8.4-25.7); Calc. Creatinine Clearance 101 mL/min (70-130); Calcium 8.6 mg/dL (7.8-10.44); Carbon Dioxide 29 mmol/L (22-29); Chloride 103 mmol/L (98-107); Glucose 246 mg/dL (70-105); Potassium 4.6 mmol/L (3.5-5.1); Sodium 142 mmol/L (136-145)
[2021-03-16] MEDS: Enoxaparin Sodium 40 MG/0.4 ML SYRINGE SC SCH ×2 (07:36→20:18)
[2021-03-16] MEDS: Dexamethasone 20 MG/5 ML VIAL SLOW IVP SCH (07:36)
[2021-03-16] MEDS: Polyethylene Glycol 3350 17 GM Packet PO SCH (07:36)
[2021-03-16] MEDS: Ascorbic Acid 500 mg Chewable Tablet PO SCH (07:37)
[2021-03-16] MEDS: Aspirin 81 mg Enteric Coated Tablet PO SCH (07:37)
[2021-03-16] MEDS: Cholecalciferol 1,000 UNITS (25 MCG) TAB PO SCH (07:37)
[2021-03-16 07:56] LABS: Puncture Site RRA
[2021-03-16 08:41] LABS: Actual Bicarbonate (HCO3a) 32.7 mEq/L (22-28); Base Excess (BEa) 7.1 mEq/L (-2.0 to +3.0); CO2 Tension 50.6 mmHg (35.0-45.0); Calcium, Ionized (arterial) 1.11 mmol/L (1.12-1.30); Carboxyhemoglobin (COHb) 0.3 gm% (0.0-3.0); Hemoglobin (Hb) 12.5 g/dL (14.0-18.0); O2 Tension (PaO2), arterial 160.2 mmHg (80.0-100.0); Potassium - ABG Lab 4.4 mmol/L (3.70-5.30); Puncture Site RRA; pH, Arterial 7.43 (7.35-7.45)
[2021-03-16] MEDS: Acetaminophen 325 MG TAB PO PRN (08:43)
[2021-03-16] MEDS: Lantus 1000 UNITS/10 ML VIAL SC SCH (08:44)
[2021-03-16] MEDS: HumaLOG 300 UNITS/3 ML VIAL SC PRN ×3 (09:01→22:55)
[2021-03-16] MEDS: BARICITINIB 2 MG TAB PO SCH (09:29)
[2021-03-16] MEDS: fentaNYL Citrate-0.9 % NaCl/PF 100 ML IVPB SCH (09:33)
[2021-03-16] MEDS: Micafungin 100 MG in Sodium Chloride 0.9% 100 ML IVPB SCH (10:53)
[2021-03-16] MEDS: Midazolam HCl 100 MG in Premix Bag 1 BAG IVPB PRN (13:55)
[2021-03-17 03:54] LABS: #Monocytes 0.8 10x3/uL (0.0-1.1); #Neutrophils 7.3 10x3/uL (1.5-8.4); %Lymphocytes 3.6 % (18.0-47.0); %Neutrophils 86.9 % (40.0-75.0); Hemoglobin 8.6 g/dL (13.5-17.5); Mean Corpuscular HGB CONC 32.8 g/dL (32.0-36.0); Mean Corpuscular Hemoglobin 31.3 pg (27.0-33.0); Mean Corpuscular Volume 95.3 fl (81.2-95.1); Mean Platelet Volume 10.5 fl (7.4-10.4); Platelet Count 216 10x3/uL (150-450); RBC Distribution Width 12.5 % (11.5-14.5); Red Blood Cell (RBC) Count 2.75 10x6/uL (4.32-5.72); White Blood Cell (WBC) Count 8.4 10x3/uL (3.5-10.5)
[2021-03-17 04:01] LABS: ALT (SGPT) 19 U/L (8-55); AST (SGOT) 14 U/L (5-34); Albumin 2.5 g/dL (3.5-5.0); Alkaline Phosphatase 69 U/L (40-110); Anion Gap 11 mmol/L (10-20); BUN (Urea Nitrogen) 31 mg/dL (8.4-25.7); Bilirubin, Total 0.6 mg/dL (0.2-1.2); Calc. Creatinine Clearance 108 mL/min (70-130); Calcium 8.5 mg/dL (7.8-10.44); Carbon Dioxide 31 mmol/L (22-29); Chloride 104 mmol/L (98-107); Glucose 242 mg/dL (70-105); Potassium 4.5 mmol/L (3.5-5.1); Protein, Total 5.5 g/dL (6.0-8.3); Sodium 141 mmol/L (136-145)
[2021-03-17] MEDS: Benzonatate 100 MG CAP PO SCH ×4 (05:03→20:00)
[2021-03-17] MEDS: Vancomycin HCl 1 GM in Sodium Chloride 0.9% 250 ML 250 ML IVPB SCH ×2 (05:03→13:46)
[2021-03-17] MEDS: HumaLOG 300 UNITS/3 ML VIAL SC PRN ×3 (05:04→22:28)
[2021-03-17] MEDS: Ascorbic Acid 500 mg Chewable Tablet PO SCH (08:40)
[2021-03-17] MEDS: Piperacillin/Tazobactam 3.375 GM in Sodium Chloride 0.9% 100 ML IVPB SCH ×2 (08:40→17:20)
[2021-03-17] MEDS: Cholecalciferol 1,000 UNITS (25 MCG) TAB PO SCH (08:40)
[2021-03-17] MEDS: Aspirin 81 mg Enteric Coated Tablet PO SCH (08:40)
[2021-03-17] MEDS: Enoxaparin Sodium 40 MG/0.4 ML SYRINGE SC SCH ×2 (08:40→21:39)
[2021-03-17] MEDS: Dexamethasone 20 MG/5 ML VIAL SLOW IVP SCH (08:42)
[2021-03-17] MEDS: Lantus 1000 UNITS/10 ML VIAL SC SCH (08:43)
[2021-03-17] MEDS: Polyethylene Glycol 3350 17 GM Packet PO SCH (08:45)
[2021-03-17] MEDS ORDERED: Furosemide 40 MG/4 ML VIAL SLOW IVP SCH (09:00)
[2021-03-17] MEDS ORDERED: Lantus 1000 UNITS/10 ML VIAL SC SCH (09:00)
[2021-03-17] MEDS: Micafungin 100 MG in Sodium Chloride 0.9% 100 ML IVPB SCH (11:52)
[2021-03-17 12:32] LABS: Vancomycin, Trough 19.5 ug/mL
[2021-03-17] MEDS: Midazolam HCl 100 MG in Premix Bag 1 BAG IVPB PRN (16:07)
[2021-03-17] MEDS: Furosemide 40 MG/4 ML VIAL SLOW IVP SCH (21:39)
[2021-03-17] MEDS: Vancomycin HCl 750 MG in Sodium Chloride 0.9% 250 ML 250 ML IVPB SCH (21:40)
[2021-03-17] MEDS: fentaNYL Citrate-0.9 % NaCl/PF 100 ML IVPB SCH (21:43)
[2021-03-18] MEDS: Piperacillin/Tazobactam 3.375 GM in Sodium Chloride 0.9% 100 ML IVPB SCH ×3 (00:46→15:59)
[2021-03-18] MEDS: Benzonatate 100 MG CAP PO SCH ×3 (02:18→20:47)
[2021-03-18 05:27] LABS: #Monocytes 0.5 10x3/uL (0.0-1.1); #Neutrophils 4.4 10x3/uL (1.5-8.4); %Eosinophils 0.2 % (0.0-6.0); %Lymphocytes 5.9 % (18.0-47.0); %Monocytes 9.3 % (0.0-10.0); Mean Corpuscular HGB CONC 32.3 g/dL (32.0-36.0); Mean Corpuscular Hemoglobin 30.7 pg (27.0-33.0); Platelet Count 193 10x3/uL (150-450); RBC Distribution Width 12.4 % (11.5-14.5); Red Blood Cell (RBC) Count 2.61 10x6/uL (4.32-5.72); White Blood Cell (WBC) Count 5.3 10x3/uL (3.5-10.5)
[2021-03-18 05:38] LABS: ALT (SGPT) 17 U/L (8-55); AST (SGOT) 12 U/L (5-34); Albumin 2.6 g/dL (3.5-5.0); Alkaline Phosphatase 60 U/L (40-110); Anion Gap 13 mmol/L (10-20); BUN (Urea Nitrogen) 30 mg/dL (8.4-25.7); Bilirubin, Total 0.6 mg/dL (0.2-1.2); Calc. Creatinine Clearance 99 mL/min (70-130); Calcium 8.2 mg/dL (7.8-10.44); Carbon Dioxide 32 mmol/L (22-29); Chloride 106 mmol/L (98-107); Globulin 2.9 g/dL (2.4-3.5); Glucose 221 mg/dL (70-105); Potassium 4.3 mmol/L (3.5-5.1); Protein, Total 5.5 g/dL (6.0-8.3); Sodium 147 mmol/L (136-145)
[2021-03-18] MEDS: Vancomycin HCl 750 MG in Sodium Chloride 0.9% 250 ML 250 ML IVPB SCH ×2 (05:57→12:18)
[2021-03-18] MEDS: HumaLOG 300 UNITS/3 ML VIAL SC PRN ×3 (07:28→15:38)
[2021-03-18] MEDS: Midazolam HCl 100 MG in Premix Bag 1 BAG IVPB PRN ×2 (07:29→21:52)
[2021-03-18] MEDS ORDERED: Lantus 1000 UNITS/10 ML VIAL SC ONE (07:38)
[2021-03-18] MEDS: Aspirin 81 mg Enteric Coated Tablet PO SCH (08:01)
[2021-03-18] MEDS: Ascorbic Acid 500 mg Chewable Tablet PO SCH (08:01)
[2021-03-18] MEDS: Dexamethasone 20 MG/5 ML VIAL SLOW IVP SCH (08:01)
[2021-03-18] MEDS: Polyethylene Glycol 3350 17 GM Packet PO SCH (08:02)
[2021-03-18] MEDS: Cholecalciferol 1,000 UNITS (25 MCG) TAB PO SCH (08:02)
[2021-03-18] MEDS: Enoxaparin Sodium 40 MG/0.4 ML SYRINGE SC SCH ×2 (08:02→20:55)
[2021-03-18] MEDS: Furosemide 40 MG/4 ML VIAL SLOW IVP SCH ×2 (08:02→20:55)
[2021-03-18 08:28] LABS: Actual Bicarbonate (HCO3a) 33.1 mEq/L (22-28); Base Excess (BEa) 9.5 mEq/L (-2.0 to +3.0); Calcium, Ionized (arterial) 1.04 mmol/L (1.12-1.30); Carboxyhemoglobin (COHb) 0.6 gm% (0.0-3.0); Hemoglobin (Hb) 8.7 g/dL (14.0-18.0); O2 Tension (PaO2), arterial 64.6 mmHg (80.0-100.0); Potassium - ABG Lab 3.9 mmol/L (3.70-5.30); Puncture Site LRA; pH, Arterial 7.53 (7.35-7.45)
[2021-03-18] MEDS ORDERED: Lantus 1000 UNITS/10 ML VIAL SC SCH ×2 (09:00→21:00)
[2021-03-18] MEDS ORDERED: HumaLOG 300 UNITS/3 ML VIAL SC PRN (10:58)
[2021-03-18] MEDS: Micafungin 100 MG in Sodium Chloride 0.9% 100 ML IVPB SCH (11:09)
[2021-03-18 11:44] LABS: Vancomycin, Trough 19.1 ug/mL
[2021-03-18 13:19] LABS: Bacteria/HPF None Seen HPF (None Seen); Mucous/LPF Rare LPF (<2+); RBC/HPF 0-3 HPF (0-3); Squamous Epithelial None Seen HPF (0-3); WBC/HPF 0-3 HPF (0-3)
[2021-03-19] MEDS: Piperacillin/Tazobactam 3.375 GM in Sodium Chloride 0.9% 100 ML IVPB SCH ×3 (01:26→17:54)
[2021-03-19] MEDS: Vancomycin HCl 750 MG in Sodium Chloride 0.9% 250 ML 250 ML IVPB SCH ×2 (01:26→13:14)
[2021-03-19] MEDS: Benzonatate 100 MG CAP PO SCH ×4 (03:56→21:33)
[2021-03-19 04:37] LABS: #Monocytes 0.4 10x3/uL (0.0-1.1); #Neutrophils 4.1 10x3/uL (1.5-8.4); %Eosinophils 0.8 % (0.0-6.0); %Lymphocytes 5.8 % (18.0-47.0); %Monocytes 8.8 % (0.0-10.0); %Neutrophils 83.8 % (40.0-75.0); Hemoglobin 7.6 g/dL (13.5-17.5); Mean Corpuscular HGB CONC 32.6 g/dL (32.0-36.0); Mean Corpuscular Volume 95.1 fl (81.2-95.1); Platelet Count 162 10x3/uL (150-450); RBC Distribution Width 12.5 % (11.5-14.5); Red Blood Cell (RBC) Count 2.45 10x6/uL (4.32-5.72); White Blood Cell (WBC) Count 4.9 10x3/uL (3.5-10.5)
[2021-03-19 05:57] LABS: Vancomycin, Trough 25.5 ug/mL
[2021-03-19 06:30] LABS: ALT (SGPT) 15 U/L (8-55); AST (SGOT) 12 U/L (5-34); Albumin 2.6 g/dL (3.5-5.0); Alkaline Phosphatase 54 U/L (40-110); Anion Gap 11 mmol/L (10-20); BUN (Urea Nitrogen) 29 mg/dL (8.4-25.7); Bilirubin, Total 0.5 mg/dL (0.2-1.2); Calc. Creatinine Clearance 117 mL/min (70-130); Calcium 8.5 mg/dL (7.8-10.44); Carbon Dioxide 34 mmol/L (22-29); Chloride 103 mmol/L (98-107); Globulin 2.7 g/dL (2.4-3.5); Glucose 241 mg/dL (70-105); Potassium 3.8 mmol/L (3.5-5.1); Protein, Total 5.3 g/dL (6.0-8.3); Sodium 144 mmol/L (136-145)
[2021-03-19] MEDS: HumaLOG 300 UNITS/3 ML VIAL SC PRN ×2 (06:36→16:20)
[2021-03-19] MEDS: fentaNYL Citrate-0.9 % NaCl/PF 100 ML IVPB SCH (07:49)
[2021-03-19] MEDS: Dexamethasone 20 MG/5 ML VIAL SLOW IVP SCH (08:11)
[2021-03-19] MEDS: Furosemide 40 MG/4 ML VIAL SLOW IVP SCH ×2 (08:11→21:34)
[2021-03-19] MEDS: Enoxaparin Sodium 40 MG/0.4 ML SYRINGE SC SCH ×2 (08:11→21:34)
[2021-03-19] MEDS: Aspirin 81 mg Enteric Coated Tablet PO SCH (08:12)
[2021-03-19] MEDS: Ascorbic Acid 500 mg Chewable Tablet PO SCH (08:12)
[2021-03-19] MEDS: Loratadine 10 MG TAB PO PRN (08:12)
[2021-03-19] MEDS: Cholecalciferol 1,000 UNITS (25 MCG) TAB PO SCH (08:12)
[2021-03-19 08:45] LABS: Actual Bicarbonate (HCO3a) 38.4 mEq/L (22-28); Base Excess (BEa) 10.4 mEq/L (-2.0 to +3.0); CO2 Tension 72.4 mmHg (35.0-45.0); Calcium, Ionized (arterial) 1.12 mmol/L (1.12-1.30); Carboxyhemoglobin (COHb) 0.3 gm% (0.0-3.0); Hemoglobin (Hb) 10.9 g/dL (14.0-18.0); O2 Tension (PaO2), arterial 62.2 mmHg (80.0-100.0); Potassium - ABG Lab 3.5 mmol/L (3.70-5.30); Puncture Site RRA; pH, Arterial 7.34 (7.35-7.45)
[2021-03-19] MEDS: Lantus 1000 UNITS/10 ML VIAL SC SCH ×2 (08:49→21:35)
[2021-03-19] MEDS ORDERED: Lantus 1000 UNITS/10 ML VIAL SC SCH (09:00)
[2021-03-19] MEDS: Polyethylene Glycol 3350 17 GM Packet PO SCH (13:13)
[2021-03-19] MEDS: Micafungin 100 MG in Sodium Chloride 0.9% 100 ML IVPB SCH (13:14)
[2021-03-19] MEDS ORDERED: Midodrine HCl 2.5 MG TAB PO SCH (14:00)
[2021-03-19] MEDS: Acetaminophen 325 MG TAB PO PRN (14:17)
[2021-03-19] MEDS: Lorazepam 0.5 MG TAB PO SCH (19:32)
[2021-03-19] MEDS: Midazolam HCl 100 MG in Premix Bag 1 BAG IVPB PRN (23:16)
[2021-03-20 00:54] LABS: Ferritin 927.46 ng/mL (22-322)
[2021-03-20] MEDS: Piperacillin/Tazobactam 3.375 GM in Sodium Chloride 0.9% 100 ML IVPB SCH ×3 (02:44→16:09)
[2021-03-20] MEDS: Lorazepam 0.5 MG TAB PO SCH ×4 (02:45→17:29)
[2021-03-20] MEDS: Benzonatate 100 MG CAP PO SCH ×4 (02:47→19:52)
[2021-03-20] MEDS: Vancomycin HCl 750 MG in Sodium Chloride 0.9% 250 ML 250 ML IVPB SCH (03:03)
[2021-03-20 05:28] LABS: ALT (SGPT) 24 U/L (8-55); AST (SGOT) 19 U/L (5-34); Albumin 2.8 g/dL (3.5-5.0); Alkaline Phosphatase 55 U/L (40-110); Anion Gap 14 mmol/L (10-20); BUN (Urea Nitrogen) 27 mg/dL (8.4-25.7); Bilirubin, Total 0.6 mg/dL (0.2-1.2); Calc. Creatinine Clearance 123 mL/min (70-130); Calcium 8.6 mg/dL (7.8-10.44); Carbon Dioxide 35 mmol/L (22-29); Chloride 99 mmol/L (98-107); Globulin 2.7 g/dL (2.4-3.5); Glucose 83 mg/dL (70-105); Potassium 3.5 mmol/L (3.5-5.1); Protein, Total 5.5 g/dL (6.0-8.3); Sodium 144 mmol/L (136-145)
[2021-03-20 08:28] LABS: Actual Bicarbonate (HCO3a) 32.5 mEq/L (22-28); Base Excess (BEa) 7.4 mEq/L (-2.0 to +3.0); CO2 Tension 48.6 mmHg (35.0-45.0); Carboxyhemoglobin (COHb) 0.8 gm% (0.0-3.0); Hemoglobin (Hb) 10.1 g/dL (14.0-18.0); O2 Tension (PaO2), arterial 35.2 mmHg (80.0-100.0); Potassium - ABG Lab 3.4 mmol/L (3.70-5.30); Puncture Site RBA; pH, Arterial 7.44 (7.35-7.45)
[2021-03-20] MEDS: Aspirin 81 mg Enteric Coated Tablet PO SCH ×2 (08:36→19:05)
[2021-03-20] MEDS: Ascorbic Acid 500 mg Chewable Tablet PO SCH (08:36)
[2021-03-20] MEDS: Dexamethasone 20 MG/5 ML VIAL SLOW IVP SCH (08:37)
[2021-03-20] MEDS: Cholecalciferol 1,000 UNITS (25 MCG) TAB PO SCH (08:37)
[2021-03-20] MEDS: Enoxaparin Sodium 40 MG/0.4 ML SYRINGE SC SCH ×2 (08:38→19:04)
[2021-03-20] MEDS: Furosemide 40 MG/4 ML VIAL SLOW IVP SCH ×2 (08:38→21:30)
[2021-03-20] MEDS: Acetaminophen 325 MG TAB PO PRN (08:45)
[2021-03-20] MEDS: Polyethylene Glycol 3350 17 GM Packet PO SCH (08:45)
[2021-03-20] MEDS: Guaifenesin DM 100-10/5 ML UDCUP PO PRN (08:47)
[2021-03-20] MEDS: Lantus 1000 UNITS/10 ML VIAL SC SCH ×2 (08:52→21:31)
[2021-03-20] MEDS: Midazolam HCl 100 MG in Premix Bag 1 BAG IVPB PRN (10:43)
[2021-03-20] MEDS: Fentanyl BOLUS 250 ML IVPB PRN (10:44)
[2021-03-20] MEDS: Micafungin 100 MG in Sodium Chloride 0.9% 100 ML IVPB SCH (12:35)
[2021-03-20] MEDS: Vancomycin HCl 1 GM in Sodium Chloride 0.9% 250 ML 250 ML IVPB SCH (13:41)
[2021-03-20 15:42] LABS: #Eosinphils 0.5 10x3/uL (0.0-0.5); #Monocytes 0.7 10x3/uL (0.0-1.1); #Neutrophils 9.9 10x3/uL (1.5-8.4); %Basophils 0.1 % (0.0-2.0); %Lymphocytes 5.4 % (18.0-47.0); %Monocytes 5.8 % (0.0-10.0); Hemoglobin 9.1 g/dL (13.5-17.5); Mean Corpuscular HGB CONC 30.5 g/dL (32.0-36.0); Mean Corpuscular Hemoglobin 30.6 pg (27.0-33.0); Mean Corpuscular Volume 100.3 fl (81.2-95.1); Mean Platelet Volume 12.1 fl (7.4-10.4); Platelet Count 189 10x3/uL (150-450); RBC Distribution Width 13.2 % (11.5-14.5); Red Blood Cell (RBC) Count 2.97 10x6/uL (4.32-5.72); White Blood Cell (WBC) Count 11.8 10x3/uL (3.5-10.5)
[2021-03-20] MEDS: Pantoprazole 40 MG VIAL IVP SCH (21:30)
[2021-03-21] MEDS: Lorazepam 0.5 MG TAB PO SCH ×4 (00:04→17:50)
[2021-03-21] MEDS: Vancomycin HCl 1 GM in Sodium Chloride 0.9% 250 ML 250 ML IVPB SCH ×2 (00:04→11:51)
[2021-03-21] MEDS: Midazolam HCl 100 MG in Premix Bag 1 BAG IVPB PRN ×2 (01:25→13:32)
[2021-03-21] MEDS: Piperacillin/Tazobactam 3.375 GM in Sodium Chloride 0.9% 100 ML IVPB SCH ×3 (02:58→16:15)
[2021-03-21] MEDS: Benzonatate 100 MG CAP PO SCH ×4 (03:01→21:35)
[2021-03-21] MEDS: Dextrose 50% Abboject 50 ML SYRINGE SLOW IVP PRN ×2 (04:31→21:35)
[2021-03-21 04:37] LABS: ALT (SGPT) 25 U/L (8-55); AST (SGOT) 19 U/L (5-34); Albumin 2.7 g/dL (3.5-5.0); Alkaline Phosphatase 59 U/L (40-110); Anion Gap 14 mmol/L (10-20); BUN (Urea Nitrogen) 28 mg/dL (8.4-25.7); Bilirubin, Total 0.7 mg/dL (0.2-1.2); Calc. Creatinine Clearance 115 mL/min (70-130); Calcium 8.9 mg/dL (7.8-10.44); Carbon Dioxide 34 mmol/L (22-29); Chloride 99 mmol/L (98-107); Globulin 3.1 g/dL (2.4-3.5); Glucose 61 mg/dL (70-105); Potassium 3.6 mmol/L (3.5-5.1); Protein, Total 5.8 g/dL (6.0-8.3); Sodium 143 mmol/L (136-145)
[2021-03-21] MEDS: fentaNYL Citrate-0.9 % NaCl/PF 100 ML IVPB SCH (07:51)
[2021-03-21 08:04] LABS: #Eosinphils 0.3 10x3/uL (0.0-0.5); #Monocytes 0.6 10x3/uL (0.0-1.1); #Neutrophils 8.2 10x3/uL (1.5-8.4); %Eosinophils 2.7 % (0.0-6.0); %Lymphocytes 6.4 % (18.0-47.0); %Monocytes 6.4 % (0.0-10.0); Hemoglobin 8.1 g/dL (13.5-17.5); Mean Corpuscular HGB CONC 33.1 g/dL (32.0-36.0); Mean Corpuscular Hemoglobin 31.2 pg (27.0-33.0); Mean Corpuscular Volume 94.2 fl (81.2-95.1); Mean Platelet Volume 10.4 fl (7.4-10.4); Platelet Count 160 10x3/uL (150-450); White Blood Cell (WBC) Count 9.8 10x3/uL (3.5-10.5)
[2021-03-21 08:50] LABS: Actual Bicarbonate (HCO3a) 34.4 mEq/L (22-28); Base Excess (BEa) 8.4 mEq/L (-2.0 to +3.0); CO2 Tension 55.2 mmHg (35.0-45.0); Calcium, Ionized (arterial) 1.12 mmol/L (1.12-1.30); Carboxyhemoglobin (COHb) 0.9 gm% (0.0-3.0); Hemoglobin (Hb) 10.6 g/dL (14.0-18.0); O2 Tension (PaO2), arterial 43.2 mmHg (80.0-100.0); Potassium - ABG Lab 3.3 mmol/L (3.70-5.30); Puncture Site Arterial Line; pH, Arterial 7.41 (7.35-7.45)
[2021-03-21] MEDS: Pantoprazole 40 MG VIAL IVP SCH ×2 (08:59→21:34)
[2021-03-21] MEDS ORDERED: Pantoprazole 40 MG VIAL IVP SCH (09:00)
[2021-03-21] MEDS: Furosemide 40 MG/4 ML VIAL SLOW IVP SCH ×2 (09:00→21:34)
[2021-03-21] MEDS: Dexamethasone 20 MG/5 ML VIAL SLOW IVP SCH (09:00)
[2021-03-21] MEDS: Acetaminophen 325 MG TAB PO PRN (09:01)
[2021-03-21] MEDS: Ascorbic Acid 500 mg Chewable Tablet PO SCH (09:02)
[2021-03-21] MEDS: Polyethylene Glycol 3350 17 GM Packet PO SCH (09:03)
[2021-03-21] MEDS: Lantus 1000 UNITS/10 ML VIAL SC SCH ×2 (09:03→21:34)
[2021-03-21] MEDS: Cholecalciferol 1,000 UNITS (25 MCG) TAB PO SCH (09:03)
[2021-03-21] MEDS: Micafungin 100 MG in Sodium Chloride 0.9% 100 ML IVPB SCH (11:10)
[2021-03-22] MEDS: Piperacillin/Tazobactam 3.375 GM in Sodium Chloride 0.9% 100 ML IVPB SCH ×2 (00:18→09:08)
[2021-03-22] MEDS: Vancomycin HCl 1 GM in Sodium Chloride 0.9% 250 ML 250 ML IVPB SCH (00:18)
[2021-03-22] MEDS: Lorazepam 0.5 MG TAB PO SCH ×4 (01:09→23:09)
[2021-03-22 01:17] LABS: ALT (SGPT) 23 U/L (8-55); AST (SGOT) 20 U/L (5-34); Albumin 2.8 g/dL (3.5-5.0); Alkaline Phosphatase 55 U/L (40-110); Anion Gap 16 mmol/L (10-20); BUN (Urea Nitrogen) 25 mg/dL (8.4-25.7); Bilirubin, Total 0.8 mg/dL (0.2-1.2); Calc. Creatinine Clearance 104 mL/min (70-130); Calcium 8.9 mg/dL (7.8-10.44); Carbon Dioxide 32 mmol/L (22-29); Chloride 95 mmol/L (98-107); Globulin 3.2 g/dL (2.4-3.5); Glucose 111 mg/dL (70-105); Potassium 4.1 mmol/L (3.5-5.1); Sodium 139 mmol/L (136-145)
[2021-03-22] MEDS: Midazolam HCl 100 MG in Premix Bag 1 BAG IVPB PRN ×2 (01:59→11:36)
[2021-03-22] MEDS: Benzonatate 100 MG CAP PO SCH ×4 (02:11→23:10)
[2021-03-22 02:13] LABS: Vancomycin, Trough 16.6 ug/mL
[2021-03-22 04:32] LABS: #Eosinphils 0.2 10x3/uL (0.0-0.5); #Monocytes 0.7 10x3/uL (0.0-1.1); #Neutrophils 10.2 10x3/uL (1.5-8.4); %Basophils 0.1 % (0.0-2.0); %Eosinophils 1.7 % (0.0-6.0); %Lymphocytes 4.5 % (18.0-47.0); %Monocytes 6.3 % (0.0-10.0); %Neutrophils 86.8 % (40.0-75.0); Hemoglobin 8.7 g/dL (13.5-17.5); Mean Corpuscular HGB CONC 33.1 g/dL (32.0-36.0); Mean Corpuscular Hemoglobin 31.2 pg (27.0-33.0); Mean Corpuscular Volume 94.3 fl (81.2-95.1); Mean Platelet Volume 11.5 fl (7.4-10.4); Platelet Count 167 10x3/uL (150-450); RBC Distribution Width 13.2 % (11.5-14.5); Red Blood Cell (RBC) Count 2.79 10x6/uL (4.32-5.72); White Blood Cell (WBC) Count 11.8 10x3/uL (3.5-10.5)
[2021-03-22] MEDS ORDERED: Dextrose 10% in Water 1,000 ML IV SCH (07:00)
[2021-03-22 07:44] LABS: Actual Bicarbonate (HCO3a) 35.1 mEq/L (22-28); Base Excess (BEa) 10.7 mEq/L (-2.0 to +3.0); Calcium, Ionized (arterial) 1.08 mmol/L (1.12-1.30); Carboxyhemoglobin (COHb) 0.8 gm% (0.0-3.0); Hemoglobin (Hb) 8.2 g/dL (14.0-18.0); O2 Tension (PaO2), arterial 59.3 mmHg (80.0-100.0); Potassium - ABG Lab 3.4 mmol/L (3.70-5.30); Puncture Site RBA; pH, Arterial 7.49 (7.35-7.45)
[2021-03-22] MEDS: Lantus 1000 UNITS/10 ML VIAL SC SCH ×2 (09:00→23:10)
[2021-03-22] MEDS: Pantoprazole 40 MG VIAL IVP SCH ×2 (09:07→21:16)
[2021-03-22] MEDS: Cholecalciferol 1,000 UNITS (25 MCG) TAB PO SCH (09:08)
[2021-03-22] MEDS: Polyethylene Glycol 3350 17 GM Packet PO SCH (09:08)
[2021-03-22] MEDS: Ascorbic Acid 500 mg Chewable Tablet PO SCH (09:08)
[2021-03-22] MEDS: Furosemide 40 MG/4 ML VIAL SLOW IVP SCH ×2 (09:09→21:16)
[2021-03-22] MEDS: Dexamethasone 20 MG/5 ML VIAL SLOW IVP SCH (09:09)
[2021-03-22] MEDS: fentaNYL Citrate-0.9 % NaCl/PF 100 ML IVPB SCH (11:39)
[2021-03-22] MEDS: Micafungin 100 MG in Sodium Chloride 0.9% 100 ML IVPB SCH (11:54)
[2021-03-22] MEDS: Enoxaparin Sodium 40 MG/0.4 ML SYRINGE SC SCH (21:16)
[2021-03-22] MEDS: Acetaminophen 325 MG TAB PO PRN (22:00)
[2021-03-23] MEDS: Lorazepam 0.5 MG TAB PO SCH ×4 (00:24→19:43)
[2021-03-23] MEDS: Benzonatate 100 MG CAP PO SCH ×4 (02:30→21:22)
[2021-03-23] MEDS: HumaLOG 300 UNITS/3 ML VIAL SC PRN ×3 (04:43→15:59)
[2021-03-23] MEDS: Midazolam HCl 100 MG in Premix Bag 1 BAG IVPB PRN (04:43)
[2021-03-23] MEDS: fentaNYL Citrate-0.9 % NaCl/PF 100 ML IVPB SCH (04:44)
[2021-03-23 05:09] LABS: ALT (SGPT) 16 U/L (8-55); AST (SGOT) 13 U/L (5-34); Albumin 2.7 g/dL (3.5-5.0); Alkaline Phosphatase 59 U/L (40-110); Anion Gap 13 mmol/L (10-20); BUN (Urea Nitrogen) 29 mg/dL (8.4-25.7); Bilirubin, Total 0.8 mg/dL (0.2-1.2); Calc. Creatinine Clearance 103 mL/min (70-130); Carbon Dioxide 34 mmol/L (22-29); Chloride 95 mmol/L (98-107); Globulin 3.3 g/dL (2.4-3.5); Glucose 224 mg/dL (70-105); Potassium 3.7 mmol/L (3.5-5.1); Sodium 138 mmol/L (136-145)
[2021-03-23 05:29] LABS: #Eosinphils 0.3 10x3/uL (0.0-0.5); #Monocytes 0.8 10x3/uL (0.0-1.1); #Neutrophils 9.8 10x3/uL (1.5-8.4); %Basophils 0.2 % (0.0-2.0); %Eosinophils 2.9 % (0.0-6.0); %Monocytes 6.5 % (0.0-10.0); %Neutrophils 83.7 % (40.0-75.0); Mean Corpuscular HGB CONC 33.3 g/dL (32.0-36.0); Mean Corpuscular Volume 93.1 fl (81.2-95.1); Mean Platelet Volume 10.5 fl (7.4-10.4); Platelet Count 169 10x3/uL (150-450); RBC Distribution Width 13.4 % (11.5-14.5); White Blood Cell (WBC) Count 11.7 10x3/uL (3.5-10.5)
[2021-03-23 07:40] LABS: ALV-art Gradient 356.775 mmHg (0-20); Base Excess (BEa) 9.2 mEq/L (-2.0 to +3.0); CO2 Tension 56.1 mmHg (35.0-45.0); Calcium, Ionized (arterial) 1.11 mmol/L (1.12-1.30); Carboxyhemoglobin (COHb) 0.6 gm% (0.0-3.0); O2 Tension (PaO2), arterial 72.2 mmHg (80.0-100.0); Potassium - ABG Lab 3.4 mmol/L (3.70-5.30); Puncture Site RBA; pH, Arterial 7.41 (7.35-7.45)
[2021-03-23] MEDS: Cholecalciferol 1,000 UNITS (25 MCG) TAB PO SCH (09:00)
[2021-03-23] MEDS: Ascorbic Acid 500 mg Chewable Tablet PO SCH (09:00)
[2021-03-23] MEDS: Dexamethasone 20 MG/5 ML VIAL SLOW IVP SCH (09:01)
[2021-03-23] MEDS: Furosemide 40 MG/4 ML VIAL SLOW IVP SCH ×2 (09:01→21:03)
[2021-03-23] MEDS: Pantoprazole 40 MG VIAL IVP SCH ×2 (09:01→21:03)
[2021-03-23] MEDS: Lantus 1000 UNITS/10 ML VIAL SC SCH ×2 (09:02→21:22)
[2021-03-23] MEDS: Polyethylene Glycol 3350 17 GM Packet PO SCH (09:03)
[2021-03-23] MEDS: Dexmedetomidine In 0.9 % NaCl 400 MCG in Premix Bag 1 BAG IVPB SCH (15:58)
[2021-03-23] MEDS: Enoxaparin Sodium 40 MG/0.4 ML SYRINGE SC SCH (21:03)
[2021-03-23] MEDS: Acetaminophen 325 MG TAB PO PRN (21:03)
[2021-03-24] MEDS: Lorazepam 0.5 MG TAB PO SCH ×4 (00:51→17:31)
[2021-03-24] MEDS: Dexmedetomidine In 0.9 % NaCl 100 ML IVPB SCH ×2 (00:52→13:50)
[2021-03-24] MEDS: Norepinephrine 8 MG/0.9% NS 250 ML IVPB SCH (02:41)
[2021-03-24] MEDS: HumaLOG 300 UNITS/3 ML VIAL SC PRN ×3 (04:27→22:55)
[2021-03-24] MEDS: Benzonatate 100 MG CAP PO SCH ×4 (04:28→21:28)
[2021-03-24 04:47] LABS: ALT (SGPT) 12 U/L (8-55); AST (SGOT) 13 U/L (5-34); Albumin 2.8 g/dL (3.5-5.0); Alkaline Phosphatase 59 U/L (40-110); Anion Gap 13 mmol/L (10-20); BUN (Urea Nitrogen) 34 mg/dL (8.4-25.7); Bilirubin, Total 0.7 mg/dL (0.2-1.2); Calc. Creatinine Clearance 105 mL/min (70-130); Calcium 8.6 mg/dL (7.8-10.44); Carbon Dioxide 36 mmol/L (22-29); Chloride 94 mmol/L (98-107); Globulin 2.8 g/dL (2.4-3.5); Glucose 172 mg/dL (70-105); Potassium 3.8 mmol/L (3.5-5.1); Protein, Total 5.6 g/dL (6.0-8.3); Sodium 139 mmol/L (136-145)
[2021-03-24 04:49] LABS: #Eosinphils 0.9 10x3/uL (0.0-0.5); #Monocytes 0.7 10x3/uL (0.0-1.1); %Basophils 0.3 % (0.0-2.0); %Eosinophils 5.5 % (0.0-6.0); %Lymphocytes 4.3 % (18.0-47.0); %Monocytes 4.7 % (0.0-10.0); %Neutrophils 84.4 % (40.0-75.0); Hemoglobin 8.9 g/dL (13.5-17.5); Mean Corpuscular HGB CONC 32.6 g/dL (32.0-36.0); Mean Corpuscular Hemoglobin 30.7 pg (27.0-33.0); Mean Corpuscular Volume 94.1 fl (81.2-95.1); Mean Platelet Volume 10.4 fl (7.4-10.4); Platelet Count 212 10x3/uL (150-450); RBC Distribution Width 13.4 % (11.5-14.5); White Blood Cell (WBC) Count 15.4 10x3/uL (3.5-10.5)
[2021-03-24] MEDS: Midazolam HCl 100 MG in Premix Bag 1 BAG IVPB PRN (07:43)
[2021-03-24] MEDS: fentaNYL Citrate-0.9 % NaCl/PF 100 ML IVPB SCH ×2 (07:43→20:56)
[2021-03-24] MEDS: Dexmedetomidine In 0.9 % NaCl 400 MCG in Premix Bag 1 BAG IVPB SCH ×2 (07:44→20:56)
[2021-03-24 07:59] LABS: Actual Bicarbonate (HCO3a) 37.2 mEq/L (22-28); Base Excess (BEa) 12.1 mEq/L (-2.0 to +3.0); CO2 Tension 52.1 mmHg (35.0-45.0); Calcium, Ionized (arterial) 1.09 mmol/L (1.12-1.30); Carboxyhemoglobin (COHb) 0.7 gm% (0.0-3.0); Hemoglobin (Hb) 9.2 g/dL (14.0-18.0); O2 Tension (PaO2), arterial 55.2 mmHg (80.0-100.0); Potassium - ABG Lab 3.7 mmol/L (3.70-5.30); Puncture Site RRA; pH, Arterial 7.47 (7.35-7.45)
[2021-03-24 08:04] LABS: ALV-art Gradient 378.775 mmHg (0-20)
[2021-03-24] MEDS: Polyethylene Glycol 3350 17 GM Packet PO SCH (08:20)
[2021-03-24] MEDS: Ascorbic Acid 500 mg Chewable Tablet PO SCH (08:20)
[2021-03-24] MEDS: Dexamethasone 20 MG/5 ML VIAL SLOW IVP SCH (08:20)
[2021-03-24] MEDS: Pantoprazole 40 MG VIAL IVP SCH ×2 (08:20→20:56)
[2021-03-24] MEDS: Cholecalciferol 1,000 UNITS (25 MCG) TAB PO SCH (08:21)
[2021-03-24] MEDS: Furosemide 40 MG/4 ML VIAL SLOW IVP SCH ×2 (08:21→20:57)
[2021-03-24] MEDS: Lantus 1000 UNITS/10 ML VIAL SC SCH ×2 (08:24→21:10)
[2021-03-24] MEDS: Acetaminophen 325 MG TAB PO PRN (17:08)
[2021-03-24] MEDS: Enoxaparin Sodium 40 MG/0.4 ML SYRINGE SC SCH (21:38)
[2021-03-25] MEDS: Lorazepam 0.5 MG TAB PO SCH ×2 (01:01→05:53)
[2021-03-25] MEDS: Benzonatate 100 MG CAP PO SCH ×4 (03:11→21:48)
[2021-03-25] MEDS: Dexmedetomidine In 0.9 % NaCl 400 MCG in Premix Bag 1 BAG IVPB SCH ×4 (04:31→21:43)
[2021-03-25 04:56] LABS: ALT (SGPT) 10 U/L (8-55); AST (SGOT) 15 U/L (5-34); Albumin 2.8 g/dL (3.5-5.0); Alkaline Phosphatase 56 U/L (40-110); Anion Gap 14 mmol/L (10-20); BUN (Urea Nitrogen) 29 mg/dL (8.4-25.7); Bilirubin, Total 0.5 mg/dL (0.2-1.2); Calc. Creatinine Clearance 105 mL/min (70-130); Calcium 9.1 mg/dL (7.8-10.44); Carbon Dioxide 37 mmol/L (22-29); Chloride 93 mmol/L (98-107); Globulin 3.5 g/dL (2.4-3.5); Glucose 204 mg/dL (70-105); Potassium 3.7 mmol/L (3.5-5.1); Protein, Total 6.3 g/dL (6.0-8.3); Sodium 140 mmol/L (136-145)
[2021-03-25] MEDS: HumaLOG 300 UNITS/3 ML VIAL SC PRN (05:01)
[2021-03-25 05:49] LABS: #Eosinphils 0.4 10x3/uL (0.0-0.5); #Monocytes 0.8 10x3/uL (0.0-1.1); #Neutrophils 9.9 10x3/uL (1.5-8.4); %Basophils 0.2 % (0.0-2.0); %Eosinophils 3.3 % (0.0-6.0); %Lymphocytes 6.5 % (18.0-47.0); %Monocytes 6.7 % (0.0-10.0); %Neutrophils 82.7 % (40.0-75.0); Hemoglobin 8.3 g/dL (13.5-17.5); Mean Corpuscular HGB CONC 32.3 g/dL (32.0-36.0); Mean Corpuscular Hemoglobin 30.6 pg (27.0-33.0); Mean Corpuscular Volume 94.8 fl (81.2-95.1); Mean Platelet Volume 10.8 fl (7.4-10.4); Platelet Count 214 10x3/uL (150-450); RBC Distribution Width 13.6 % (11.5-14.5); Red Blood Cell (RBC) Count 2.71 10x6/uL (4.32-5.72); White Blood Cell (WBC) Count 11.9 10x3/uL (3.5-10.5)
[2021-03-25] MEDS: fentaNYL Citrate-0.9 % NaCl/PF 100 ML IVPB SCH ×2 (07:33→16:26)
[2021-03-25] MEDS: Norepinephrine 8 MG/0.9% NS 250 ML IVPB SCH (07:33)
[2021-03-25] MEDS: Polyethylene Glycol 3350 17 GM Packet PO SCH (08:28)
[2021-03-25] MEDS: Pantoprazole 40 MG VIAL IVP SCH ×2 (08:29→21:47)
[2021-03-25] MEDS: Dexamethasone 20 MG/5 ML VIAL SLOW IVP SCH (08:29)
[2021-03-25] MEDS: Furosemide 40 MG/4 ML VIAL SLOW IVP SCH ×3 (08:29→21:47)
[2021-03-25] MEDS: Ascorbic Acid 500 mg Chewable Tablet PO SCH (08:29)
[2021-03-25] MEDS: Cholecalciferol 1,000 UNITS (25 MCG) TAB PO SCH (08:29)
[2021-03-25] MEDS: Lantus 1000 UNITS/10 ML VIAL SC SCH ×2 (08:32→21:48)
[2021-03-25 09:11] LABS: Actual Bicarbonate (HCO3a) 44.2 mEq/L (22-28); Base Excess (BEa) 17.5 mEq/L (-2.0 to +3.0); CO2 Tension 66.5 mmHg (35.0-45.0); Carboxyhemoglobin (COHb) 0.5 gm% (0.0-3.0); Hemoglobin (Hb) 9.4 g/dL (14.0-18.0); O2 Tension (PaO2), arterial 57.4 mmHg (80.0-100.0); Potassium - ABG Lab 3.3 mmol/L (3.70-5.30); Puncture Site LRA; pH, Arterial 7.44 (7.35-7.45)
[2021-03-25 09:14] LABS: ALV-art Gradient 287.275 mmHg (0-20)
[2021-03-25] MEDS ORDERED: Metoclopramide HCl 10 MG/2 ML VIAL IVP SCH (10:15)
[2021-03-25 12:41] LABS: Bilirubin Neg (Negative); Blood, Urine Negative (Negative); Clarity Clear (Clear); Glucose, Urine (Dipstick) Normal (Negative); Ketone, Urine Negative (Negative); Leukocyte Negative (Negative); Nitrite Negative (Negative); Protein, Urine (Dipstick) Negative (Neg-Trace); Urobilinogen Normal mg/dL (Less than 2)
[2021-03-25 13:15] LABS: Bacteria/HPF None Seen HPF (None Seen); RBC/HPF None Seen HPF (0-3); Squamous Epithelial None Seen HPF (0-3); WBC/HPF None Seen HPF (0-3)
[2021-03-25 13:16] LABS: Urine Culture Reflex No No
[2021-03-25] MEDS: Midazolam HCl 100 MG in Premix Bag 1 BAG IVPB PRN (16:26)
[2021-03-25] MEDS: Enoxaparin Sodium 40 MG/0.4 ML SYRINGE SC SCH (21:47)
[2021-03-26] MEDS: Dexmedetomidine In 0.9 % NaCl 400 MCG in Premix Bag 1 BAG IVPB SCH ×4 (02:25→21:47)
[2021-03-26 03:36] LABS: #Eosinphils 0.2 10x3/uL (0.0-0.5); #Neutrophils 12.9 10x3/uL (1.5-8.4); %Basophils 0.2 % (0.0-2.0); %Eosinophils 1.6 % (0.0-6.0); %Lymphocytes 5.4 % (18.0-47.0); %Monocytes 6.6 % (0.0-10.0); %Neutrophils 85.7 % (40.0-75.0); Hemoglobin 8.5 g/dL (13.5-17.5); Mean Corpuscular HGB CONC 32.6 g/dL (32.0-36.0); Mean Corpuscular Hemoglobin 30.5 pg (27.0-33.0); Mean Corpuscular Volume 93.5 fl (81.2-95.1); Mean Platelet Volume 9.8 fl (7.4-10.4); Platelet Count 220 10x3/uL (150-450); RBC Distribution Width 13.8 % (11.5-14.5); Red Blood Cell (RBC) Count 2.79 10x6/uL (4.32-5.72); White Blood Cell (WBC) Count 15.1 10x3/uL (3.5-10.5)
[2021-03-26 03:46] LABS: ALT (SGPT) 12 U/L (8-55); AST (SGOT) 16 U/L (5-34); Albumin 2.9 g/dL (3.5-5.0); Alkaline Phosphatase 48 U/L (40-110); BUN (Urea Nitrogen) 30 mg/dL (8.4-25.7); Bilirubin, Total 0.6 mg/dL (0.2-1.2); Calc. Creatinine Clearance 109 mL/min (70-130); Globulin 3.5 g/dL (2.4-3.5); Glucose 73 mg/dL (70-105); Protein, Total 6.4 g/dL (6.0-8.3)
[2021-03-26 03:54] LABS: Anion Gap 16 mmol/L (10-20); Carbon Dioxide 36 mmol/L (22-29); Chloride 95 mmol/L (98-107); Potassium 3.8 mmol/L (3.5-5.1); Sodium 143 mmol/L (136-145)
[2021-03-26] MEDS: Benzonatate 100 MG CAP PO SCH ×4 (04:32→20:02)
[2021-03-26] MEDS: fentaNYL Citrate-0.9 % NaCl/PF 100 ML IVPB SCH ×2 (05:30→19:51)
[2021-03-26] MEDS: Acetaminophen 325 MG TAB PO PRN ×2 (07:36→21:07)
[2021-03-26] MEDS: Cholecalciferol 1,000 UNITS (25 MCG) TAB PO SCH (09:06)
[2021-03-26] MEDS: Pantoprazole 40 MG VIAL IVP SCH ×2 (09:06→20:01)
[2021-03-26] MEDS: Ascorbic Acid 500 mg Chewable Tablet PO SCH (09:06)
[2021-03-26] MEDS: Dexamethasone 20 MG/5 ML VIAL SLOW IVP SCH (09:06)
[2021-03-26] MEDS: Furosemide 40 MG/4 ML VIAL SLOW IVP SCH ×3 (09:07→20:02)
[2021-03-26] MEDS: Polyethylene Glycol 3350 17 GM Packet PO SCH (09:07)
[2021-03-26] MEDS: Lantus 1000 UNITS/10 ML VIAL SC SCH ×2 (09:09→20:04)
[2021-03-26 09:35] LABS: Actual Bicarbonate (HCO3a) 42.1 mEq/L (22-28); Base Excess (BEa) 15.5 mEq/L (-2.0 to +3.0); CO2 Tension 62.5 mmHg (35.0-45.0); Calcium, Ionized (arterial) 1.09 mmol/L (1.12-1.30); Carboxyhemoglobin (COHb) 1.2 gm% (0.0-3.0); Hemoglobin (Hb) 11.2 g/dL (14.0-18.0); O2 Tension (PaO2), arterial 62.9 mmHg (80.0-100.0); Potassium - ABG Lab 3.9 mmol/L (3.70-5.30); Puncture Site LRA; pH, Arterial 7.45 (7.35-7.45)
[2021-03-26 09:40] LABS: ALV-art Gradient 286.775 mmHg (0-20)
[2021-03-26] MEDS: Norepinephrine 8 MG/0.9% NS 250 ML IVPB SCH ×2 (10:06→21:47)
[2021-03-26] MEDS ORDERED: MEROPENEM 1 GM/50 ML 1 GM in Premix Bag 1 BAG IVPB SCH (15:00)
[2021-03-26] MEDS: Enoxaparin Sodium 40 MG/0.4 ML SYRINGE SC SCH (20:02)
[2021-03-26] MEDS: MEROPENEM 1 GM/50 ML 1 GM in Premix Bag 1 BAG IVPB SCH (20:06)
[2021-03-26] MEDS ORDERED: Sodium Chloride 0.9% 1,000 ML IV SCH (21:45)
[2021-03-26] MEDS: Midazolam HCl 100 MG in Premix Bag 1 BAG IVPB PRN (23:24)
[2021-03-27] MEDS: Phenylephrine 40 MG/NS 250 ML 250 ML IVPB SCH ×7 (00:30→23:55)
[2021-03-27 00:44] LABS: #Monocytes 0.4 10x3/uL (0.0-1.1); #Neutrophils 11.7 10x3/uL (1.5-8.4); %Basophils 0.2 % (0.0-2.0); %Eosinophils 0.2 % (0.0-6.0); %Lymphocytes 2.1 % (18.0-47.0); %Neutrophils 93.9 % (40.0-75.0); Hemoglobin 7.1 g/dL (13.5-17.5); Mean Corpuscular HGB CONC 30.7 g/dL (32.0-36.0); Mean Corpuscular Hemoglobin 30.5 pg (27.0-33.0); Mean Corpuscular Volume 99.1 fl (81.2-95.1); Mean Platelet Volume 10.1 fl (7.4-10.4); Platelet Count 146 10x3/uL (150-450); RBC Distribution Width 13.7 % (11.5-14.5); Red Blood Cell (RBC) Count 2.33 10x6/uL (4.32-5.72); White Blood Cell (WBC) Count 12.4 10x3/uL (3.5-10.5)
[2021-03-27 00:52] LABS: ALT (SGPT) 13 U/L (8-55); AST (SGOT) 16 U/L (5-34); Albumin 2.9 g/dL (3.5-5.0); Alkaline Phosphatase 38 U/L (40-110); Anion Gap 15 mmol/L (10-20); BUN (Urea Nitrogen) 34 mg/dL (8.4-25.7); Bilirubin, Total 0.8 mg/dL (0.2-1.2); Calc. Creatinine Clearance 99 mL/min (70-130); Calcium 7.9 mg/dL (7.8-10.44); Carbon Dioxide 32 mmol/L (22-29); Chloride 101 mmol/L (98-107); Globulin 2.7 g/dL (2.4-3.5); Glucose 112 mg/dL (70-105); Magnesium 1.8 mg/dL (1.6-2.6); Potassium 3.2 mmol/L (3.5-5.1); Protein, Total 5.6 g/dL (6.0-8.3); Sodium 145 mmol/L (136-145)
[2021-03-27] MEDS: Benzonatate 100 MG CAP PO SCH ×4 (03:22→20:36)
[2021-03-27 03:55] LABS: #Monocytes 0.7 10x3/uL (0.0-1.1); %Basophils 0.1 % (0.0-2.0); %Eosinophils 0.1 % (0.0-6.0); %Lymphocytes 2.5 % (18.0-47.0); %Neutrophils 92.8 % (40.0-75.0); Hemoglobin 7.3 g/dL (13.5-17.5); Mean Corpuscular HGB CONC 30.2 g/dL (32.0-36.0); Mean Corpuscular Hemoglobin 30.2 pg (27.0-33.0); Platelet Count 157 10x3/uL (150-450); RBC Distribution Width 13.6 % (11.5-14.5); Red Blood Cell (RBC) Count 2.42 10x6/uL (4.32-5.72); White Blood Cell (WBC) Count 16.2 10x3/uL (3.5-10.5)
[2021-03-27 04:12] LABS: ALT (SGPT) 13 U/L (8-55); AST (SGOT) 16 U/L (5-34); Albumin 2.8 g/dL (3.5-5.0); Alkaline Phosphatase 40 U/L (40-110); Anion Gap 12 mmol/L (10-20); BUN (Urea Nitrogen) 34 mg/dL (8.4-25.7); Bilirubin, Total 0.8 mg/dL (0.2-1.2); Calc. Creatinine Clearance 102 mL/min (70-130); Calcium 7.8 mg/dL (7.8-10.44); Carbon Dioxide 34 mmol/L (22-29); Chloride 102 mmol/L (98-107); Globulin 2.7 g/dL (2.4-3.5); Glucose 110 mg/dL (70-105); Potassium 3.4 mmol/L (3.5-5.1); Protein, Total 5.5 g/dL (6.0-8.3); Sodium 145 mmol/L (136-145)
[2021-03-27] MEDS: fentaNYL Citrate-0.9 % NaCl/PF 100 ML IVPB SCH ×2 (05:59→20:35)
[2021-03-27] MEDS: Potassium Chloride 20 MEQ TAB PER TUBE SCH ×2 (06:57→12:11)
[2021-03-27] MEDS: MEROPENEM 1 GM/50 ML 1 GM in Premix Bag 1 BAG IVPB SCH ×3 (07:00→20:44)
[2021-03-27] MEDS ORDERED: Magnesium 2 GM/50 ML 2 GM in Premix Bag 1 BAG IVPB SCH (07:00)
[2021-03-27] MEDS ORDERED: Lantus 1000 UNITS/10 ML VIAL SC SCH (08:14)
[2021-03-27 08:25] LABS: Actual Bicarbonate (HCO3a) 38.4 mEq/L (22-28); Base Excess (BEa) 10.4 mEq/L (-2.0 to +3.0); Calcium, Ionized (arterial) 1.07 mmol/L (1.12-1.30); Hemoglobin (Hb) 9.6 g/dL (14.0-18.0); O2 Tension (PaO2), arterial 69.7 mmHg (80.0-100.0); Potassium - ABG Lab 4.3 mmol/L (3.70-5.30); Puncture Site LRA; pH, Arterial 7.33 (7.35-7.45)
[2021-03-27] MEDS: Ascorbic Acid 500 mg Chewable Tablet PO SCH (09:00)
[2021-03-27] MEDS: Cholecalciferol 1,000 UNITS (25 MCG) TAB PO SCH (09:01)
[2021-03-27] MEDS: Aspirin 81 mg Enteric Coated Tablet PO SCH (09:01)
[2021-03-27] MEDS: Polyethylene Glycol 3350 17 GM Packet PO SCH (09:01)
[2021-03-27] MEDS: Dexamethasone 20 MG/5 ML VIAL SLOW IVP SCH (09:01)
[2021-03-27] MEDS: Furosemide 40 MG/4 ML VIAL SLOW IVP SCH ×4 (09:01→20:39)
[2021-03-27] MEDS: Pantoprazole 40 MG VIAL IVP SCH ×2 (09:02→20:41)
[2021-03-27] MEDS: Dexmedetomidine In 0.9 % NaCl 100 ML IVPB SCH ×2 (09:45→14:32)
[2021-03-27] MEDS: Lantus 1000 UNITS/10 ML VIAL SC SCH (10:00)
[2021-03-27] MEDS: HumaLOG 300 UNITS/3 ML VIAL SC PRN ×2 (10:01→16:21)
[2021-03-27 11:22] LABS: Legionella Urinary Ag Negative (Negative); Strep pneumo Urine Ag NEGATIVE (NEGATIVE)
[2021-03-27] MEDS ORDERED: VANCOMYCIN 1.25 GM/250 ML BAG 1.25 GM in Premix Bag 1 BAG IVPB SCH (13:00)
[2021-03-27] MEDS: Hydrocortisone Sod Succ/PF 100 mg/2 ml Vial IVP SCH ×2 (13:42→20:36)
[2021-03-27] MEDS: Acetaminophen 325 MG TAB PO PRN ×2 (16:20→21:31)
[2021-03-27] MEDS: Norepinephrine 8 MG/0.9% NS 250 ML IVPB SCH (16:54)
[2021-03-27] MEDS: Dexmedetomidine In 0.9 % NaCl 400 MCG in Premix Bag 1 BAG IVPB SCH (20:35)
[2021-03-28] MEDS: Acetaminophen 325 MG TAB PO PRN ×2 (01:31→21:21)
[2021-03-28] MEDS: Dexmedetomidine In 0.9 % NaCl 400 MCG in Premix Bag 1 BAG IVPB SCH ×4 (01:32→23:57)
[2021-03-28] MEDS: HumaLOG 300 UNITS/3 ML VIAL SC PRN ×5 (01:32→21:22)
[2021-03-28] MEDS ORDERED: Sodium Chloride 0.9% 250 ML 250 ML ONE (02:52)
[2021-03-28] MEDS: Vancomycin HCl 1 GM in Sodium Chloride 0.9% 250 ML 250 ML IVPB SCH ×2 (02:52→13:50)
[2021-03-28] MEDS: Benzonatate 100 MG CAP PO SCH ×4 (02:59→21:14)
[2021-03-28] MEDS: Phenylephrine 40 MG/NS 250 ML 250 ML IVPB SCH ×5 (03:19→21:32)
[2021-03-28 04:05] LABS: #Monocytes 0.3 10x3/uL (0.0-1.1); #Neutrophils 8.2 10x3/uL (1.5-8.4); %Basophils 0.1 % (0.0-2.0); %Lymphocytes 2.6 % (18.0-47.0); %Monocytes 3.8 % (0.0-10.0); %Neutrophils 92.7 % (40.0-75.0); Hemoglobin 6.6 g/dL (13.5-17.5); Mean Corpuscular Hemoglobin 30.6 pg (27.0-33.0); Mean Corpuscular Volume 101.9 fl (81.2-95.1); Mean Platelet Volume 10.7 fl (7.4-10.4); Platelet Count 154 10x3/uL (150-450); RBC Distribution Width 13.5 % (11.5-14.5); Red Blood Cell (RBC) Count 2.16 10x6/uL (4.32-5.72); White Blood Cell (WBC) Count 8.8 10x3/uL (3.5-10.5)
[2021-03-28 04:20] LABS: ALT (SGPT) 22 U/L (8-55); AST (SGOT) 26 U/L (5-34); Albumin 2.7 g/dL (3.5-5.0); Alkaline Phosphatase 61 U/L (40-110); Anion Gap 11 mmol/L (10-20); BUN (Urea Nitrogen) 35 mg/dL (8.4-25.7); Bilirubin, Total 0.4 mg/dL (0.2-1.2); Calc. Creatinine Clearance 95 mL/min (70-130); Carbon Dioxide 35 mmol/L (22-29); Chloride 104 mmol/L (98-107); Globulin 2.8 g/dL (2.4-3.5); Glucose 235 mg/dL (70-105); Potassium 5.9 mmol/L (3.5-5.1); Protein, Total 5.5 g/dL (6.0-8.3); Sodium 144 mmol/L (136-145)
[2021-03-28 04:44] LABS: Platelet Morphology Comment Appears Adequate; RBC Morphology Normal
[2021-03-28] MEDS ORDERED: Insulin Regular 300 UNITS/3 ML VIAL IVP SCH (06:00)
[2021-03-28] MEDS ORDERED: Calcium Gluconate 4.6 MEQ in Sodium Chloride 0.9% 100 ML IVPB SCH (06:00)
[2021-03-28] MEDS: MEROPENEM 1 GM/50 ML 1 GM in Premix Bag 1 BAG IVPB SCH ×3 (06:14→21:20)
[2021-03-28] MEDS: Hydrocortisone Sod Succ/PF 100 mg/2 ml Vial IVP SCH ×3 (06:14→21:19)
[2021-03-28 07:12] LABS: ALV-art Gradient 294.875 mmHg (0-20); Actual Bicarbonate (HCO3a) 36.6 mEq/L (22-28); Base Excess (BEa) 6.7 mEq/L (-2.0 to +3.0); CO2 Tension 100.9 mmHg (35.0-45.0); Calcium, Ionized (arterial) 1.16 mmol/L (1.12-1.30); Carboxyhemoglobin (COHb) 0.5 gm% (0.0-3.0); Hemoglobin (Hb) 7.8 g/dL (14.0-18.0); O2 Tension (PaO2), arterial 78.1 mmHg (80.0-100.0); Potassium - ABG Lab 5.3 mmol/L (3.70-5.30); Puncture Site RRA; pH, Arterial 7.18 (7.35-7.45)
[2021-03-28] MEDS: fentaNYL Citrate-0.9 % NaCl/PF 100 ML IVPB SCH (08:46)
[2021-03-28] MEDS: Pantoprazole 40 MG VIAL IVP SCH ×2 (08:47→21:19)
[2021-03-28] MEDS: Cholecalciferol 1,000 UNITS (25 MCG) TAB PO SCH (08:47)
[2021-03-28] MEDS: Aspirin 81 mg Enteric Coated Tablet PO SCH (08:47)
[2021-03-28] MEDS: Polyethylene Glycol 3350 17 GM Packet PO SCH ×2 (08:47→09:06)
[2021-03-28] MEDS: Furosemide 40 MG/4 ML VIAL SLOW IVP SCH ×3 (08:57→21:19)
[2021-03-28] MEDS: Ascorbic Acid 500 mg Chewable Tablet PO SCH (08:57)
[2021-03-28] MEDS: Lantus 1000 UNITS/10 ML VIAL SC SCH ×2 (08:59→21:19)
[2021-03-28] MEDS ORDERED: Furosemide 20 MG/2 ML VIAL SLOW IVP SCH (09:00)
[2021-03-28] MEDS: Dexmedetomidine In 0.9 % NaCl 100 ML IVPB SCH ×2 (10:36→19:17)
[2021-03-28] MEDS: Norepinephrine 8 MG/0.9% NS 250 ML IVPB SCH (11:42)
[2021-03-28 13:18] LABS: Actual Bicarbonate (HCO3a) 32.5 mEq/L (22-28); Base Excess (BEa) 4.3 mEq/L (-2.0 to +3.0); CO2 Tension 74.4 mmHg (35.0-45.0); Calcium, Ionized (arterial) 1.13 mmol/L (1.12-1.30); Carboxyhemoglobin (COHb) 0.5 gm% (0.0-3.0); Hemoglobin (Hb) 8.4 g/dL (14.0-18.0); O2 Tension (PaO2), arterial 120.3 mmHg (80.0-100.0); Potassium - ABG Lab 5.7 mmol/L (3.70-5.30); Puncture Site LRA; pH, Arterial 7.26 (7.35-7.45)
[2021-03-28 15:25] LABS: Hemoglobin 8.5 g/dL (13.5-17.5); Platelet Count 149 10x3/uL (150-450)
[2021-03-28 15:48] LABS: Anion Gap 16 mmol/L (10-20); BUN (Urea Nitrogen) 44 mg/dL (8.4-25.7); Calc. Creatinine Clearance 94 mL/min (70-130); Calcium 8.1 mg/dL (7.8-10.44); Carbon Dioxide 30 mmol/L (22-29); Chloride 104 mmol/L (98-107); Glucose 279 mg/dL (70-105); Potassium 5.9 mmol/L (3.5-5.1); Sodium 144 mmol/L (136-145)
[2021-03-28 21:01] LABS: ALT (SGPT) 193 U/L (8-55); AST (SGOT) 214 U/L (5-34); Albumin 2.8 g/dL (3.5-5.0); Alkaline Phosphatase 178 U/L (40-110); Anion Gap 12 mmol/L (10-20); BUN (Urea Nitrogen) 43 mg/dL (8.4-25.7); Bilirubin, Total 0.8 mg/dL (0.2-1.2); Calc. Creatinine Clearance 101 mL/min (70-130); Calcium 8.1 mg/dL (7.8-10.44); Carbon Dioxide 36 mmol/L (22-29); Chloride 103 mmol/L (98-107); Globulin 2.4 g/dL (2.4-3.5); Glucose 294 mg/dL (70-105); Potassium 4.3 mmol/L (3.5-5.1); Protein, Total 5.2 g/dL (6.0-8.3); Sodium 147 mmol/L (136-145)
[2021-03-29] MEDS ORDERED: Ibuprofen 600 MG TAB PER TUBE SCH (00:30)
[2021-03-29] MEDS: Vancomycin HCl 1 GM in Sodium Chloride 0.9% 250 ML 250 ML IVPB SCH (00:46)
[2021-03-29] MEDS: fentaNYL Citrate-0.9 % NaCl/PF 100 ML IVPB SCH ×2 (01:18→11:46)
[2021-03-29] MEDS: Phenylephrine 40 MG/NS 250 ML 250 ML IVPB SCH ×5 (01:18→16:31)
[2021-03-29 01:21] LABS: Vancomycin, Trough 9.9 ug/mL
[2021-03-29] MEDS: Benzonatate 100 MG CAP PO SCH ×4 (03:41→22:37)
[2021-03-29] MEDS: Acetaminophen 325 MG TAB PO PRN ×3 (03:52→16:13)
[2021-03-29 04:22] LABS: #Monocytes 0.5 10x3/uL (0.0-1.1); #Neutrophils 8.7 10x3/uL (1.5-8.4); %Basophils 0.1 % (0.0-2.0); %Lymphocytes 4.6 % (18.0-47.0); %Monocytes 4.8 % (0.0-10.0); %Neutrophils 89.5 % (40.0-75.0); Hemoglobin 7.3 g/dL (13.5-17.5); Mean Corpuscular HGB CONC 30.4 g/dL (32.0-36.0); Mean Corpuscular Volume 98.8 fl (81.2-95.1); Platelet Count 170 10x3/uL (150-450); Red Blood Cell (RBC) Count 2.43 10x6/uL (4.32-5.72); White Blood Cell (WBC) Count 9.8 10x3/uL (3.5-10.5)
[2021-03-29] MEDS: Dexmedetomidine In 0.9 % NaCl 400 MCG in Premix Bag 1 BAG IVPB SCH ×5 (04:38→20:23)
[2021-03-29 05:30] LABS: ALT (SGPT) 150 U/L (8-55); AST (SGOT) 83 U/L (5-34); Albumin 2.7 g/dL (3.5-5.0); Alkaline Phosphatase 153 U/L (40-110); Anion Gap 11 mmol/L (10-20); BUN (Urea Nitrogen) 45 mg/dL (8.4-25.7); Bilirubin, Total 0.7 mg/dL (0.2-1.2); Calc. Creatinine Clearance 103 mL/min (70-130); Calcium 7.9 mg/dL (7.8-10.44); Carbon Dioxide 37 mmol/L (22-29); Chloride 104 mmol/L (98-107); Globulin 2.5 g/dL (2.4-3.5); Glucose 169 mg/dL (70-105); Potassium 4.2 mmol/L (3.5-5.1); Protein, Total 5.2 g/dL (6.0-8.3); Sodium 148 mmol/L (136-145)
[2021-03-29] MEDS: MEROPENEM 1 GM/50 ML 1 GM in Premix Bag 1 BAG IVPB SCH ×3 (07:25→23:31)
[2021-03-29] MEDS: Hydrocortisone Sod Succ/PF 100 mg/2 ml Vial IVP SCH ×3 (07:26→22:38)
[2021-03-29] MEDS: Cholecalciferol 1,000 UNITS (25 MCG) TAB PO SCH (08:05)
[2021-03-29] MEDS: Furosemide 40 MG/4 ML VIAL SLOW IVP SCH ×3 (08:05→22:37)
[2021-03-29] MEDS: Aspirin 81 mg Enteric Coated Tablet PO SCH (08:05)
[2021-03-29] MEDS: Pantoprazole 40 MG VIAL IVP SCH ×2 (08:05→22:38)
[2021-03-29] MEDS: Ascorbic Acid 500 mg Chewable Tablet PO SCH (08:05)
[2021-03-29] MEDS: Polyethylene Glycol 3350 17 GM Packet PO SCH (08:06)
[2021-03-29] MEDS: Lantus 1000 UNITS/10 ML VIAL SC SCH ×2 (09:22→22:38)
[2021-03-29 11:12] LABS: ALV-art Gradient 267.525 mmHg (0-20); Actual Bicarbonate (HCO3a) 39.2 mEq/L (22-28); CO2 Tension 73.1 mmHg (35.0-45.0); Calcium, Ionized (arterial) 1.08 mmol/L (1.12-1.30); Carboxyhemoglobin (COHb) 1.4 gm% (0.0-3.0); Critical Notified Whom: TELEMED//RN; Hemoglobin (Hb) 7.5 g/dL (14.0-18.0); O2 Tension (PaO2), arterial 140.2 mmHg (80.0-100.0); Potassium - ABG Lab 4.5 mmol/L (3.70-5.30); Puncture Site RRA; pH, Arterial 7.35 (7.35-7.45)
[2021-03-29] MEDS: VANCOMYCIN 1.25 GM/250 ML BAG 1.25 GM in Premix Bag 1 BAG IVPB SCH (14:53)
[2021-03-29] MEDS: HumaLOG 300 UNITS/3 ML VIAL SC PRN (16:14)
[2021-03-30] MEDS: Dexmedetomidine In 0.9 % NaCl 400 MCG in Premix Bag 1 BAG IVPB SCH ×4 (00:36→17:50)
[2021-03-30] MEDS: VANCOMYCIN 1.25 GM/250 ML BAG 1.25 GM in Premix Bag 1 BAG IVPB SCH ×2 (01:27→14:23)
[2021-03-30] MEDS: Benzonatate 100 MG CAP PO SCH ×4 (02:33→21:18)
[2021-03-30] MEDS: Phenylephrine 40 MG/NS 250 ML 250 ML IVPB SCH ×3 (04:14→17:51)
[2021-03-30] MEDS: Hydrocortisone Sod Succ/PF 100 mg/2 ml Vial IVP SCH ×3 (05:13→21:17)
[2021-03-30 05:22] LABS: #Monocytes 0.6 10x3/uL (0.0-1.1); #Neutrophils 7.4 10x3/uL (1.5-8.4); %Basophils 0.1 % (0.0-2.0); %Monocytes 6.9 % (0.0-10.0); %Neutrophils 85.7 % (40.0-75.0); Hemoglobin 7.2 g/dL (13.5-17.5); Mean Corpuscular HGB CONC 30.3 g/dL (32.0-36.0); Mean Corpuscular Hemoglobin 29.5 pg (27.0-33.0); Mean Corpuscular Volume 97.5 fl (81.2-95.1); Mean Platelet Volume 11.4 fl (7.4-10.4); Platelet Count 135 10x3/uL (150-450); RBC Distribution Width 14.3 % (11.5-14.5); Red Blood Cell (RBC) Count 2.44 10x6/uL (4.32-5.72); White Blood Cell (WBC) Count 8.6 10x3/uL (3.5-10.5)
[2021-03-30] MEDS: MEROPENEM 1 GM/50 ML 1 GM in Premix Bag 1 BAG IVPB SCH ×3 (05:23→21:17)
[2021-03-30 05:50] LABS: ALT (SGPT) 131 U/L (8-55); AST (SGOT) 67 U/L (5-34); Albumin 2.7 g/dL (3.5-5.0); Alkaline Phosphatase 141 U/L (40-110); Anion Gap 12 mmol/L (10-20); BUN (Urea Nitrogen) 57 mg/dL (8.4-25.7); Bilirubin, Total 0.7 mg/dL (0.2-1.2); Calc. Creatinine Clearance 97 mL/min (70-130); Carbon Dioxide 36 mmol/L (22-29); Chloride 104 mmol/L (98-107); Globulin 2.4 g/dL (2.4-3.5); Glucose 140 mg/dL (70-105); Potassium 3.3 mmol/L (3.5-5.1); Protein, Total 5.1 g/dL (6.0-8.3); Sodium 149 mmol/L (136-145)
[2021-03-30] MEDS: Aspirin 81 mg Enteric Coated Tablet PO SCH (08:13)
[2021-03-30] MEDS: Cholecalciferol 1,000 UNITS (25 MCG) TAB PO SCH (08:14)
[2021-03-30] MEDS: Furosemide 40 MG/4 ML VIAL SLOW IVP SCH (08:14)
[2021-03-30] MEDS: Pantoprazole 40 MG VIAL IVP SCH ×2 (08:14→21:17)
[2021-03-30] MEDS: Ascorbic Acid 500 mg Chewable Tablet PO SCH (08:14)
[2021-03-30] MEDS: Lantus 1000 UNITS/10 ML VIAL SC SCH ×2 (08:16→21:17)
[2021-03-30] MEDS: Polyethylene Glycol 3350 17 GM Packet PO SCH (08:17)
[2021-03-30] MEDS: Fentanyl BOLUS 250 ML IVPB PRN (08:20)
[2021-03-30 08:36] LABS: Puncture Site RRA
[2021-03-30 08:39] LABS: ALV-art Gradient 199.375 mmHg (0-20); Actual Bicarbonate (HCO3a) 36.8 mEq/L (22-28); Base Excess (BEa) 7.6 mEq/L (-2.0 to +3.0); CO2 Tension 88.5 mmHg (35.0-45.0); Calcium, Ionized (arterial) 1.09 mmol/L (1.12-1.30); Carboxyhemoglobin (COHb) 0.8 gm% (0.0-3.0); Hemoglobin (Hb) 8.9 g/dL (14.0-18.0); O2 Tension (PaO2), arterial 46.5 mmHg (80.0-100.0); Potassium - ABG Lab 3.3 mmol/L (3.70-5.30); pH, Arterial 7.24 (7.35-7.45)
[2021-03-30] MEDS ORDERED: Furosemide 40 MG/4 ML VIAL SLOW IVP SCH (09:00)
[2021-03-30] MEDS ORDERED: Potassium Chloride 20 MEQ TAB PO SCH (09:00)
[2021-03-30] MEDS: Lorazepam 2 MG/ML VIAL SLOW IVP PRN (12:52)
[2021-03-30] MEDS: fentaNYL Citrate-0.9 % NaCl/PF 100 ML IVPB SCH (14:58)
[2021-03-30] MEDS: Albumin 25% 25 GM/100 ML BOT IVPB SCH (21:16)
[2021-03-30] MEDS ORDERED: busPIRone HCl 5 MG TAB PO SCH (22:45)
[2021-03-30] MEDS: Dexmedetomidine In 0.9 % NaCl 100 ML IVPB SCH (23:26)
[2021-03-31 00:30] LABS: Vancomycin, Trough 34.4 ug/mL
[2021-03-31] MEDS: Phenylephrine 40 MG/NS 250 ML 250 ML IVPB SCH (01:29)
[2021-03-31] MEDS: Albumin 25% 25 GM/100 ML BOT IVPB SCH (03:01)
[2021-03-31] MEDS: Benzonatate 100 MG CAP PO SCH ×2 (03:12→09:47)
[2021-03-31] MEDS: Lorazepam 2 MG/ML VIAL SLOW IVP PRN (04:29)
[2021-03-31] MEDS: fentaNYL Citrate-0.9 % NaCl/PF 100 ML IVPB SCH (04:46)
[2021-03-31] MEDS: Dexmedetomidine In 0.9 % NaCl 100 ML IVPB SCH ×4 (04:55→20:16)
[2021-03-31 04:57] LABS: #Monocytes 0.7 10x3/uL (0.0-1.1); #Neutrophils 7.3 10x3/uL (1.5-8.4); %Basophils 0.1 % (0.0-2.0); %Lymphocytes 5.8 % (18.0-47.0); %Monocytes 8.1 % (0.0-10.0); %Neutrophils 85.4 % (40.0-75.0); Hemoglobin 7.1 g/dL (13.5-17.5); Mean Corpuscular HGB CONC 30.9 g/dL (32.0-36.0); Mean Platelet Volume 11.6 fl (7.4-10.4); Platelet Count 129 10x3/uL (150-450); RBC Distribution Width 14.6 % (11.5-14.5); Red Blood Cell (RBC) Count 2.37 10x6/uL (4.32-5.72); White Blood Cell (WBC) Count 8.6 10x3/uL (3.5-10.5)
[2021-03-31 05:09] LABS: Iron 26 ug/dL (65-175); Iron Binding Capacity, Total 95 mcg/dL (261-462); Phosphorus 2.1 mg/dL (2.3-4.7)
[2021-03-31 06:32] LABS: ALT (SGPT) 112 U/L (8-55); AST (SGOT) 63 U/L (5-34); Albumin 3.1 g/dL (3.5-5.0); Alkaline Phosphatase 134 U/L (40-110); BUN (Urea Nitrogen) 61 mg/dL (8.4-25.7); Bilirubin, Total 0.7 mg/dL (0.2-1.2); Calc. Creatinine Clearance 100 mL/min (70-130); Calcium 8.7 mg/dL (7.8-10.44); Globulin 2.3 g/dL (2.4-3.5); Glucose 169 mg/dL (70-105); Magnesium 2.4 mg/dL (1.6-2.6); Protein, Total 5.4 g/dL (6.0-8.3)
[2021-03-31] MEDS: MEROPENEM 1 GM/50 ML 1 GM in Premix Bag 1 BAG IVPB SCH ×3 (06:38→21:48)
[2021-03-31] MEDS: busPIRone HCl 5 MG TAB PO SCH ×3 (06:39→22:00)
[2021-03-31] MEDS: Hydrocortisone Sod Succ/PF 100 mg/2 ml Vial IVP SCH ×3 (06:39→21:48)
[2021-03-31 06:40] LABS: Anion Gap 16 mmol/L (10-20); Carbon Dioxide 35 mmol/L (22-29); Chloride 104 mmol/L (98-107); Potassium 3.2 mmol/L (3.5-5.1); Sodium 152 mmol/L (136-145)
[2021-03-31 07:41] LABS: Actual Bicarbonate (HCO3a) 42.5 mEq/L (22-28); Base Excess (BEa) 16.4 mEq/L (-2.0 to +3.0); CO2 Tension 65.8 mmHg (35.0-45.0); Calcium, Ionized (arterial) 1.11 mmol/L (1.12-1.30); Carboxyhemoglobin (COHb) 1.6 gm% (0.0-3.0); Hemoglobin (Hb) 7.2 g/dL (14.0-18.0); O2 Tension (PaO2), arterial 73.7 mmHg (80.0-100.0); Potassium - ABG Lab 3.2 mmol/L (3.70-5.30); Puncture Site LRA; pH, Arterial 7.43 (7.35-7.45)
[2021-03-31] MEDS ORDERED: Potassium Phosphate 30 MMOL in Sodium Chloride 0.9% 250 ML 250 ML IVPB SCH (08:00)
[2021-03-31] MEDS: Pantoprazole 40 MG VIAL ONE ×2 (09:41→17:22)
[2021-03-31] MEDS: Cholecalciferol 1,000 UNITS (25 MCG) TAB PO SCH (09:42)
[2021-03-31] MEDS: Polyethylene Glycol 3350 17 GM Packet PO SCH (09:42)
[2021-03-31] MEDS: Spironolactone 25 MG TAB PO SCH (09:42)
[2021-03-31] MEDS: Aspirin 81 mg Enteric Coated Tablet PO SCH (09:42)
[2021-03-31] MEDS: Ascorbic Acid 500 mg Chewable Tablet PO SCH (09:42)
[2021-03-31] MEDS: Lantus 1000 UNITS/10 ML VIAL SC SCH ×2 (09:44→21:50)
[2021-03-31] MEDS: Pantoprazole 40 MG VIAL IVP SCH ×2 (09:49→21:50)
[2021-03-31 11:37] LABS: Albumin 3.3 g/dL (3.5-5.0); BUN (Urea Nitrogen) 63 mg/dL (8.4-25.7); BUN/Creatinine Ratio 77.78; Calc. Creatinine Clearance 103 mL/min (70-130); Calcium 8.8 mg/dL (7.8-10.44); Glucose 183 mg/dL (70-105)
[2021-03-31 11:44] LABS: Anion Gap 15 mmol/L (10-20); Carbon Dioxide 36 mmol/L (22-29); Chloride 104 mmol/L (98-107); Potassium 3.4 mmol/L (3.5-5.1); Sodium 152 mmol/L (136-145)
[2021-03-31 11:49] LABS: Phosphorus 1.8 mg/dL (2.3-4.7)
[2021-03-31] MEDS: HumaLOG 300 UNITS/3 ML VIAL SC PRN ×3 (13:08→23:35)
[2021-03-31] MEDS: Fentanyl CADD 100 ML IVPB SCH (17:55)
[2021-03-31 18:37] LABS: Anion Gap 15 mmol/L (10-20); Carbon Dioxide 35 mmol/L (22-29); Chloride 105 mmol/L (98-107); Sodium 151 mmol/L (136-145)
[2021-03-31 18:48] LABS: Albumin 3.2 g/dL (3.5-5.0); BUN (Urea Nitrogen) 61 mg/dL (8.4-25.7); BUN/Creatinine Ratio 74.39; Calc. Creatinine Clearance 102 mL/min (70-130); Calcium 8.7 mg/dL (7.8-10.44); Glucose 186 mg/dL (70-105); Phosphorus 2.8 mg/dL (2.3-4.7)
[2021-03-31 22:41] LABS: Albumin 3.2 g/dL (3.5-5.0); BUN (Urea Nitrogen) 62 mg/dL (8.4-25.7); BUN/Creatinine Ratio 79.49; Calc. Creatinine Clearance 107 mL/min (70-130); Calcium 8.9 mg/dL (7.8-10.44); Glucose 176 mg/dL (70-105); Phosphorus 2.5 mg/dL (2.3-4.7)
[2021-03-31 22:48] LABS: Anion Gap 14 mmol/L (10-20); Carbon Dioxide 35 mmol/L (22-29); Chloride 105 mmol/L (98-107); Sodium 150 mmol/L (136-145)
[2021-04-01] MEDS: Dexmedetomidine In 0.9 % NaCl 100 ML IVPB SCH ×6 (00:49→23:58)
[2021-04-01 00:56] LABS: Vancomycin, Random 17.5 ug/mL (See Comment)
[2021-04-01 04:04] LABS: #Monocytes 0.3 10x3/uL (0.0-1.1); #Neutrophils 4.5 10x3/uL (1.5-8.4); %Lymphocytes 3.5 % (18.0-47.0); %Monocytes 5.1 % (0.0-10.0); Hemoglobin 6.2 g/dL (13.5-17.5); Mean Corpuscular HGB CONC 30.4 g/dL (32.0-36.0); Mean Corpuscular Hemoglobin 29.7 pg (27.0-33.0); Mean Corpuscular Volume 97.6 fl (81.2-95.1); Mean Platelet Volume 11.9 fl (7.4-10.4); Platelet Count 105 10x3/uL (150-450); RBC Distribution Width 14.4 % (11.5-14.5); Red Blood Cell (RBC) Count 2.09 10x6/uL (4.32-5.72); White Blood Cell (WBC) Count 4.9 10x3/uL (3.5-10.5)
[2021-04-01 04:26] LABS: ALT (SGPT) 78 U/L (8-55); AST (SGOT) 27 U/L (5-34); Alkaline Phosphatase 107 U/L (40-110); BUN (Urea Nitrogen) 62 mg/dL (8.4-25.7); Bilirubin, Total 0.6 mg/dL (0.2-1.2); Calc. Creatinine Clearance 113 mL/min (70-130); Calcium 8.8 mg/dL (7.8-10.44); Globulin 1.9 g/dL (2.4-3.5); Glucose 104 mg/dL (70-105); Protein, Total 4.9 g/dL (6.0-8.3)
[2021-04-01 04:38] LABS: Anion Gap 15 mmol/L (10-20); Carbon Dioxide 35 mmol/L (22-29); Chloride 106 mmol/L (98-107); Potassium 4.1 mmol/L (3.5-5.1); Sodium 152 mmol/L (136-145)
[2021-04-01] MEDS: Fentanyl CADD 100 ML IVPB SCH ×2 (05:49→14:50)
[2021-04-01] MEDS: busPIRone HCl 5 MG TAB PO SCH ×3 (05:50→21:28)
[2021-04-01] MEDS: MEROPENEM 1 GM/50 ML 1 GM in Premix Bag 1 BAG IVPB SCH ×3 (05:51→21:29)
[2021-04-01] MEDS: Hydrocortisone Sod Succ/PF 100 mg/2 ml Vial IVP SCH ×4 (05:52→21:29)
[2021-04-01] MEDS: Vancomycin HCl 1 GM in Sodium Chloride 0.9% 250 ML 250 ML IVPB SCH ×2 (06:25→18:07)
[2021-04-01 07:00] LABS: Actual Bicarbonate (HCO3a) 39.9 mEq/L (22-28); Base Excess (BEa) 14.2 mEq/L (-2.0 to +3.0); CO2 Tension 60.2 mmHg (35.0-45.0); Calcium, Ionized (arterial) 1.12 mmol/L (1.12-1.30); Carboxyhemoglobin (COHb) 1.1 gm% (0.0-3.0); Hemoglobin (Hb) 7.4 g/dL (14.0-18.0); O2 Tension (PaO2), arterial 55.8 mmHg (80.0-100.0); Puncture Site RRA; pH, Arterial 7.44 (7.35-7.45)
[2021-04-01] MEDS: Cholecalciferol 1,000 UNITS (25 MCG) TAB PO SCH (09:16)
[2021-04-01] MEDS: Polyethylene Glycol 3350 17 GM Packet PO SCH (09:16)
[2021-04-01] MEDS: Pantoprazole 40 MG VIAL IVP SCH ×2 (09:16→21:26)
[2021-04-01] MEDS: Aspirin 81 mg Enteric Coated Tablet PO SCH (09:16)
[2021-04-01] MEDS: Ascorbic Acid 500 mg Chewable Tablet PO SCH (09:16)
[2021-04-01] MEDS: Spironolactone 25 MG TAB PO SCH (09:16)
[2021-04-01] MEDS: Albumin 25% 25 GM/100 ML BOT IVPB SCH ×3 (09:18→21:24)
[2021-04-01] MEDS: Lantus 1000 UNITS/10 ML VIAL SC SCH ×2 (09:19→21:24)
[2021-04-01 10:45] LABS: Albumin 3.1 g/dL (3.5-5.0); BUN (Urea Nitrogen) 59 mg/dL (8.4-25.7); BUN/Creatinine Ratio 79.73; Calc. Creatinine Clearance 116 mL/min (70-130); Calcium 8.6 mg/dL (7.8-10.44); Glucose 183 mg/dL (70-105)
[2021-04-01 10:53] LABS: Anion Gap 15 mmol/L (10-20); Carbon Dioxide 33 mmol/L (22-29); Chloride 104 mmol/L (98-107); Sodium 148 mmol/L (136-145)
[2021-04-01] MEDS: Lorazepam 2 MG/ML VIAL SLOW IVP PRN ×4 (13:53→23:59)
[2021-04-01] MEDS: oxyCODONE 5 MG TAB PO SCH ×2 (13:54→21:26)
[2021-04-01 22:16] LABS: Albumin 3.4 g/dL (3.5-5.0); Anion Gap 10 mmol/L (10-20); BUN (Urea Nitrogen) 56 mg/dL (8.4-25.7); BUN/Creatinine Ratio 84.85; Calc. Creatinine Clearance 130 mL/min (70-130); Carbon Dioxide 37 mmol/L (22-29); Chloride 103 mmol/L (98-107); Glucose 76 mg/dL (70-105); Potassium 4.3 mmol/L (3.5-5.1); Sodium 146 mmol/L (136-145)
[2021-04-01 23:03] LABS: Phosphorus 1.7 mg/dL (2.3-4.7)
[2021-04-02] MEDS ORDERED: Potassium Phosphate 30 MMOL in Sodium Chloride 0.9% 500 ML IVPB SCH (00:05)
[2021-04-02] MEDS: Fentanyl CADD 100 ML IVPB SCH ×2 (00:54→16:15)
[2021-04-02] MEDS: Lorazepam 2 MG/ML VIAL SLOW IVP PRN ×3 (02:52→22:06)
[2021-04-02] MEDS: Albumin 25% 25 GM/100 ML BOT IVPB SCH (02:52)
[2021-04-02] MEDS: Dexmedetomidine In 0.9 % NaCl 100 ML IVPB SCH ×5 (04:41→22:06)
[2021-04-02] MEDS: oxyCODONE 5 MG TAB PO SCH ×3 (05:43→22:02)
[2021-04-02] MEDS: busPIRone HCl 5 MG TAB PO SCH ×3 (05:44→22:04)
[2021-04-02] MEDS: MEROPENEM 1 GM/50 ML 1 GM in Premix Bag 1 BAG IVPB SCH ×3 (05:44→22:06)
[2021-04-02] MEDS: Hydrocortisone Sod Succ/PF 100 mg/2 ml Vial IVP SCH ×3 (05:44→22:05)
[2021-04-02 05:54] LABS: #Monocytes 0.4 10x3/uL (0.0-1.1); #Neutrophils 6.6 10x3/uL (1.5-8.4); %Eosinophils 0.1 % (0.0-6.0); %Lymphocytes 4.8 % (18.0-47.0); %Monocytes 4.9 % (0.0-10.0); %Neutrophils 89.5 % (40.0-75.0); Hemoglobin 7.2 g/dL (13.5-17.5); Mean Corpuscular HGB CONC 31.6 g/dL (32.0-36.0); Mean Corpuscular Hemoglobin 29.9 pg (27.0-33.0); Mean Corpuscular Volume 94.6 fl (81.2-95.1); Mean Platelet Volume 11.6 fl (7.4-10.4); Platelet Count 117 10x3/uL (150-450); RBC Distribution Width 15.4 % (11.5-14.5); Red Blood Cell (RBC) Count 2.41 10x6/uL (4.32-5.72); White Blood Cell (WBC) Count 7.3 10x3/uL (3.5-10.5)
[2021-04-02 06:04] LABS: ALT (SGPT) 60 U/L (8-55); AST (SGOT) 26 U/L (5-34); Albumin 3.4 g/dL (3.5-5.0); Alkaline Phosphatase 79 U/L (40-110); Anion Gap 12 mmol/L (10-20); BUN (Urea Nitrogen) 50 mg/dL (8.4-25.7); Bilirubin, Total 0.7 mg/dL (0.2-1.2); Calc. Creatinine Clearance 132 mL/min (70-130); Calcium 8.8 mg/dL (7.8-10.44); Carbon Dioxide 35 mmol/L (22-29); Chloride 104 mmol/L (98-107); Globulin 1.7 g/dL (2.4-3.5); Glucose 117 mg/dL (70-105); Potassium 4.8 mmol/L (3.5-5.1); Protein, Total 5.1 g/dL (6.0-8.3); Sodium 146 mmol/L (136-145)
[2021-04-02] MEDS: Spironolactone 25 MG TAB PO SCH (07:57)
[2021-04-02 08:03] LABS: Vancomycin, Trough 19.1 ug/mL
[2021-04-02 08:27] LABS: Actual Bicarbonate (HCO3a) 35.7 mEq/L (22-28); Base Excess (BEa) 10.7 mEq/L (-2.0 to +3.0); CO2 Tension 51.6 mmHg (35.0-45.0); Calcium, Ionized (arterial) 1.08 mmol/L (1.12-1.30); Carboxyhemoglobin (COHb) 1.2 gm% (0.0-3.0); Hemoglobin (Hb) 7.5 g/dL (14.0-18.0); O2 Tension (PaO2), arterial 53.8 mmHg (80.0-100.0); Potassium - ABG Lab 4.4 mmol/L (3.70-5.30); Puncture Site RRA; pH, Arterial 7.46 (7.35-7.45)
[2021-04-02] MEDS: Vancomycin HCl 1 GM in Sodium Chloride 0.9% 250 ML 250 ML IVPB SCH (08:27)
[2021-04-02] MEDS: Cholecalciferol 1,000 UNITS (25 MCG) TAB PO SCH (08:39)
[2021-04-02] MEDS: Polyethylene Glycol 3350 17 GM Packet PO SCH (08:39)
[2021-04-02] MEDS: Aspirin 81 mg Enteric Coated Tablet PO SCH (08:39)
[2021-04-02] MEDS: Ascorbic Acid 500 mg Chewable Tablet PO SCH (08:39)
[2021-04-02] MEDS: Pantoprazole 40 MG VIAL IVP SCH ×2 (08:39→22:03)
[2021-04-02] MEDS: Lantus 1000 UNITS/10 ML VIAL SC SCH ×2 (08:41→22:01)
[2021-04-02] MEDS ORDERED: Albumin 25% 25 GM/100 ML BOT IVPB SCH (09:00)
[2021-04-02] MEDS: Torsemide 20 MG TAB PO SCH (10:45)
[2021-04-02] MEDS: HumaLOG 300 UNITS/3 ML VIAL SC PRN (16:41)
[2021-04-02 16:51] LABS: Albumin 3.6 g/dL (3.5-5.0); BUN (Urea Nitrogen) 47 mg/dL (8.4-25.7); Calc. Creatinine Clearance 145 mL/min (70-130); Glucose 169 mg/dL (70-105); Phosphorus 3.6 mg/dL (2.3-4.7); Potassium 3.9 mmol/L (3.5-5.1)
[2021-04-02 17:07] LABS: Anion Gap 14 mmol/L (10-20); Carbon Dioxide 34 mmol/L (22-29); Chloride 100 mmol/L (98-107); Sodium 144 mmol/L (136-145)
[2021-04-03] MEDS: Vancomycin HCl 1 GM in Sodium Chloride 0.9% 250 ML 250 ML IVPB SCH ×2 (02:44→20:03)
[2021-04-03] MEDS: Dexmedetomidine In 0.9 % NaCl 100 ML IVPB SCH ×5 (02:45→19:20)
[2021-04-03 03:53] LABS: ALT (SGPT) 51 U/L (8-55); AST (SGOT) 21 U/L (5-34); Albumin 3.3 g/dL (3.5-5.0); Alkaline Phosphatase 72 U/L (40-110); BUN (Urea Nitrogen) 42 mg/dL (8.4-25.7); Bilirubin, Total 0.9 mg/dL (0.2-1.2); Calc. Creatinine Clearance 147 mL/min (70-130); Calcium 9.7 mg/dL (7.8-10.44); Globulin 1.7 g/dL (2.4-3.5); Glucose 106 mg/dL (70-105)
[2021-04-03 04:01] LABS: Anion Gap 17 mmol/L (10-20); Carbon Dioxide 33 mmol/L (22-29); Chloride 102 mmol/L (98-107); Potassium 3.9 mmol/L (3.5-5.1); Sodium 148 mmol/L (136-145)
[2021-04-03] MEDS: Fentanyl CADD 100 ML IVPB SCH ×2 (04:56→19:27)
[2021-04-03] MEDS: oxyCODONE 5 MG TAB PO SCH ×3 (05:57→21:18)
[2021-04-03] MEDS: busPIRone HCl 5 MG TAB PO SCH ×3 (05:58→21:18)
[2021-04-03] MEDS: Hydrocortisone Sod Succ/PF 100 mg/2 ml Vial IVP SCH ×3 (05:58→21:19)
[2021-04-03] MEDS: MEROPENEM 1 GM/50 ML 1 GM in Premix Bag 1 BAG IVPB SCH ×3 (05:59→21:19)
[2021-04-03] MEDS: Lorazepam 2 MG/ML VIAL SLOW IVP PRN ×5 (07:10→23:56)
[2021-04-03 07:28] LABS: Actual Bicarbonate (HCO3a) 37.3 mEq/L (22-28); Base Excess (BEa) 12.6 mEq/L (-2.0 to +3.0); CO2 Tension 49.7 mmHg (35.0-45.0); Calcium, Ionized (arterial) 1.11 mmol/L (1.12-1.30); Carboxyhemoglobin (COHb) 1.2 gm% (0.0-3.0); Hemoglobin (Hb) 8.8 g/dL (14.0-18.0); Potassium - ABG Lab 3.7 mmol/L (3.70-5.30); Puncture Site LRA; pH, Arterial 7.49 (7.35-7.45)
[2021-04-03 07:30] LABS: ALV-art Gradient 306.675 mmHg (0-20)
[2021-04-03] MEDS: Spironolactone 25 MG TAB PO SCH (08:19)
[2021-04-03] MEDS: Polyethylene Glycol 3350 17 GM Packet PO SCH (08:19)
[2021-04-03] MEDS: Ascorbic Acid 500 mg Chewable Tablet PO SCH (08:19)
[2021-04-03] MEDS: Aspirin 81 mg Enteric Coated Tablet PO SCH (08:19)
[2021-04-03] MEDS: Cholecalciferol 1,000 UNITS (25 MCG) TAB PO SCH (08:19)
[2021-04-03] MEDS: Pantoprazole 40 MG VIAL IVP SCH ×2 (08:20→21:20)
[2021-04-03] MEDS: Lantus 1000 UNITS/10 ML VIAL SC SCH ×2 (08:22→21:25)
[2021-04-03] MEDS: Torsemide 20 MG TAB PO SCH (08:51)
[2021-04-03] MEDS ORDERED: Metolazone 2.5 MG TAB PO SCH (10:00)
[2021-04-03] MEDS: Albumin 25% 25 GM/100 ML BOT IVPB SCH ×2 (10:52→17:57)
[2021-04-03] MEDS: HumaLOG 300 UNITS/3 ML VIAL SC PRN (11:17)
[2021-04-03 15:10] LABS: Albumin 3.6 g/dL (3.5-5.0); BUN (Urea Nitrogen) 40 mg/dL (8.4-25.7); Calc. Creatinine Clearance 150 mL/min (70-130); Calcium 9.4 mg/dL (7.8-10.44); Glucose 167 mg/dL (70-105); Phosphorus 3.7 mg/dL (2.3-4.7)
[2021-04-03 15:17] LABS: Anion Gap 16 mmol/L (10-20); Carbon Dioxide 36 mmol/L (22-29); Chloride 98 mmol/L (98-107); Potassium 3.4 mmol/L (3.5-5.1); Sodium 147 mmol/L (136-145)
[2021-04-03 16:48] LABS: Albumin 3.6 g/dL (3.5-5.0); BUN (Urea Nitrogen) 40 mg/dL (8.4-25.7); BUN/Creatinine Ratio 61.54; Calc. Creatinine Clearance 148 mL/min (70-130); Calcium 9.5 mg/dL (7.8-10.44); Glucose 133 mg/dL (70-105)
[2021-04-03 16:54] LABS: Anion Gap 16 mmol/L (10-20); Carbon Dioxide 36 mmol/L (22-29); Chloride 96 mmol/L (98-107); Potassium 3.4 mmol/L (3.5-5.1); Sodium 145 mmol/L (136-145)
[2021-04-03] MEDS ORDERED: Sodium Chloride 0.9% 250 ML 250 ML ONE (20:01)
[2021-04-03 20:38] LABS: #Monocytes 0.3 10x3/uL (0.0-1.1); #Neutrophils 6.4 10x3/uL (1.5-8.4); %Eosinophils 0.4 % (0.0-6.0); %Lymphocytes 2.4 % (18.0-47.0); %Monocytes 4.7 % (0.0-10.0); %Neutrophils 92.2 % (40.0-75.0); Hemoglobin 7.7 g/dL (13.5-17.5); Mean Corpuscular HGB CONC 31.4 g/dL (32.0-36.0); Mean Corpuscular Hemoglobin 29.8 pg (27.0-33.0); Mean Platelet Volume 11.3 fl (7.4-10.4); Platelet Count 147 10x3/uL (150-450); RBC Distribution Width 14.8 % (11.5-14.5); Red Blood Cell (RBC) Count 2.58 10x6/uL (4.32-5.72)
[2021-04-03 20:44] LABS: Vancomycin, Trough 16.9 ug/mL
[2021-04-03 20:45] LABS: Albumin 3.8 g/dL (3.5-5.0); BUN (Urea Nitrogen) 38 mg/dL (8.4-25.7); BUN/Creatinine Ratio 61.29; Calc. Creatinine Clearance 155 mL/min (70-130); Calcium 9.5 mg/dL (7.8-10.44); Glucose 118 mg/dL (70-105); Phosphorus 3.6 mg/dL (2.3-4.7)
[2021-04-03 20:52] LABS: Anion Gap 19 mmol/L (10-20); Carbon Dioxide 37 mmol/L (22-29); Chloride 96 mmol/L (98-107); Sodium 149 mmol/L (136-145)
[2021-04-03] MEDS: Potassium Chloride 20 MEQ TAB PO SCH ×2 (22:06→23:41)
[2021-04-04] MEDS: Albumin 25% 25 GM/100 ML BOT IVPB SCH ×4 (01:26→17:43)
[2021-04-04] MEDS: Dexmedetomidine In 0.9 % NaCl 100 ML IVPB SCH ×5 (01:44→23:07)
[2021-04-04] MEDS: Lorazepam 2 MG/ML VIAL SLOW IVP PRN ×4 (02:58→17:23)
[2021-04-04 04:12] LABS: #Monocytes 0.4 10x3/uL (0.0-1.1); #Neutrophils 5.5 10x3/uL (1.5-8.4); %Basophils 0.2 % (0.0-2.0); %Eosinophils 0.6 % (0.0-6.0); %Lymphocytes 3.2 % (18.0-47.0); %Monocytes 6.4 % (0.0-10.0); Hemoglobin 7.3 g/dL (13.5-17.5); Mean Corpuscular HGB CONC 31.2 g/dL (32.0-36.0); Mean Corpuscular Hemoglobin 29.6 pg (27.0-33.0); Mean Corpuscular Volume 94.7 fl (81.2-95.1); Mean Platelet Volume 11.1 fl (7.4-10.4); Platelet Count 149 10x3/uL (150-450); Red Blood Cell (RBC) Count 2.47 10x6/uL (4.32-5.72); White Blood Cell (WBC) Count 6.2 10x3/uL (3.5-10.5)
[2021-04-04 04:33] LABS: ALT (SGPT) 35 U/L (8-55); AST (SGOT) 18 U/L (5-34); Albumin 3.6 g/dL (3.5-5.0); Alkaline Phosphatase 52 U/L (40-110); BUN (Urea Nitrogen) 35 mg/dL (8.4-25.7); Calc. Creatinine Clearance 158 mL/min (70-130); Globulin 1.7 g/dL (2.4-3.5); Glucose 86 mg/dL (70-105); Protein, Total 5.3 g/dL (6.0-8.3)
[2021-04-04 04:41] LABS: Anion Gap 17 mmol/L (10-20); Carbon Dioxide 38 mmol/L (22-29); Chloride 95 mmol/L (98-107); Sodium 147 mmol/L (136-145)
[2021-04-04 04:53] LABS: Potassium 2.7 mmol/L (3.5-5.1)
[2021-04-04] MEDS ORDERED: Potassium Chloride 20 MEQ TAB PO SCH (05:00)
[2021-04-04] MEDS: Hydrocortisone Sod Succ/PF 100 mg/2 ml Vial IVP SCH ×3 (05:14→21:03)
[2021-04-04] MEDS: MEROPENEM 1 GM/50 ML 1 GM in Premix Bag 1 BAG IVPB SCH ×3 (05:14→21:05)
[2021-04-04] MEDS: oxyCODONE 5 MG TAB PO SCH ×3 (05:15→21:02)
[2021-04-04] MEDS: busPIRone HCl 5 MG TAB PO SCH ×3 (05:15→21:03)
[2021-04-04] MEDS: Potassium Bicarbonate/Cit Ac 20 MEQ TAB PO SCH ×2 (06:29→08:25)
[2021-04-04 07:14] LABS: Actual Bicarbonate (HCO3a) 47.4 mEq/L (22-28); Base Excess (BEa) 22.3 mEq/L (-2.0 to +3.0); CO2 Tension 57.6 mmHg (35.0-45.0); Calcium, Ionized (arterial) 1.05 mmol/L (1.12-1.30); Carboxyhemoglobin (COHb) 1.3 gm% (0.0-3.0); Hemoglobin (Hb) 7.9 g/dL (14.0-18.0); O2 Tension (PaO2), arterial 65.4 mmHg (80.0-100.0); Puncture Site RRA; pH, Arterial 7.53 (7.35-7.45)
[2021-04-04 07:44] LABS: Phosphorus 3.1 mg/dL (2.3-4.7)
[2021-04-04] MEDS: Spironolactone 25 MG TAB PO SCH (08:25)
[2021-04-04] MEDS: Ascorbic Acid 500 mg Chewable Tablet PO SCH (08:25)
[2021-04-04] MEDS: Fentanyl CADD 100 ML IVPB SCH ×2 (08:25→23:07)
[2021-04-04] MEDS: Polyethylene Glycol 3350 17 GM Packet PO SCH (08:25)
[2021-04-04] MEDS: Aspirin 81 mg Enteric Coated Tablet PO SCH (08:25)
[2021-04-04] MEDS: Pantoprazole 40 MG VIAL IVP SCH ×2 (08:25→21:04)
[2021-04-04] MEDS: Cholecalciferol 1,000 UNITS (25 MCG) TAB PO SCH (08:25)
[2021-04-04] MEDS ORDERED: Bisacodyl 10 MG SUPP PR PRN (10:23)
[2021-04-04] MEDS: Lantus 1000 UNITS/10 ML VIAL SC SCH ×2 (10:32→21:05)
[2021-04-04] MEDS: Vancomycin HCl 1 GM in Sodium Chloride 0.9% 250 ML 250 ML IVPB SCH (13:23)
[2021-04-04 22:02] LABS: BUN (Urea Nitrogen) 33 mg/dL (8.4-25.7); Calc. Creatinine Clearance 149 mL/min (70-130); Calcium 9.3 mg/dL (7.8-10.44); Glucose 132 mg/dL (70-105); Magnesium 2.2 mg/dL (1.6-2.6)
[2021-04-04 22:09] LABS: Anion Gap 17 mmol/L (10-20); Carbon Dioxide 38 mmol/L (22-29); Chloride 94 mmol/L (98-107); Potassium 3.6 mmol/L (3.5-5.1); Sodium 145 mmol/L (136-145)
[2021-04-05] MEDS: Albumin 25% 25 GM/100 ML BOT IVPB SCH (00:44)
[2021-04-05 04:05] LABS: ALT (SGPT) 26 U/L (8-55); AST (SGOT) 15 U/L (5-34); Albumin 3.9 g/dL (3.5-5.0); Alkaline Phosphatase 46 U/L (40-110); BUN (Urea Nitrogen) 30 mg/dL (8.4-25.7); Bilirubin, Total 0.8 mg/dL (0.2-1.2); Calc. Creatinine Clearance 147 mL/min (70-130); Calcium 9.1 mg/dL (7.8-10.44); Globulin 1.3 g/dL (2.4-3.5); Glucose 176 mg/dL (70-105); Protein, Total 5.2 g/dL (6.0-8.3)
[2021-04-05 04:12] LABS: Anion Gap 19 mmol/L (10-20); Carbon Dioxide 36 mmol/L (22-29); Chloride 94 mmol/L (98-107); Potassium 3.6 mmol/L (3.5-5.1); Sodium 145 mmol/L (136-145)
[2021-04-05] MEDS: busPIRone HCl 5 MG TAB PO SCH ×3 (04:31→20:00)
[2021-04-05] MEDS: oxyCODONE 5 MG TAB PO SCH ×3 (04:31→20:01)
[2021-04-05] MEDS: Hydrocortisone Sod Succ/PF 100 mg/2 ml Vial IVP SCH ×3 (04:32→20:09)
[2021-04-05] MEDS: MEROPENEM 1 GM/50 ML 1 GM in Premix Bag 1 BAG IVPB SCH ×2 (04:32→13:23)
[2021-04-05] MEDS: HumaLOG 300 UNITS/3 ML VIAL SC PRN ×2 (04:33→10:45)
[2021-04-05] MEDS: Dexmedetomidine In 0.9 % NaCl 100 ML IVPB SCH ×4 (05:29→19:51)
[2021-04-05] MEDS ORDERED: Spironolactone 25 MG TAB PO SCH (07:00)
[2021-04-05 07:16] LABS: Vancomycin, Trough 11.6 ug/mL
[2021-04-05 08:21] LABS: Actual Bicarbonate (HCO3a) 44.1 mEq/L (22-28); Base Excess (BEa) 18.7 mEq/L (-2.0 to +3.0); CO2 Tension 59.3 mmHg (35.0-45.0); Calcium, Ionized (arterial) 1.07 mmol/L (1.12-1.30); Carboxyhemoglobin (COHb) 1.5 gm% (0.0-3.0); Hemoglobin (Hb) 7.5 g/dL (14.0-18.0); Potassium - ABG Lab 3.8 mmol/L (3.70-5.30); Puncture Site RRA; pH, Arterial 7.49 (7.35-7.45)
[2021-04-05 08:24] LABS: ALV-art Gradient 300.675 mmHg (0-20)
[2021-04-05] MEDS: Cholecalciferol 1,000 UNITS (25 MCG) TAB PO SCH (08:39)
[2021-04-05] MEDS: Ascorbic Acid 500 mg Chewable Tablet PO SCH (08:39)
[2021-04-05] MEDS: Vancomycin HCl 1 GM in Sodium Chloride 0.9% 250 ML 250 ML IVPB SCH (08:39)
[2021-04-05] MEDS: Polyethylene Glycol 3350 17 GM Packet PO SCH (08:40)
[2021-04-05] MEDS: Aspirin 81 mg Enteric Coated Tablet PO SCH (08:40)
[2021-04-05] MEDS: Pantoprazole 40 MG VIAL IVP SCH ×2 (08:40→20:01)
[2021-04-05] MEDS: Metolazone 2.5 MG TAB PO SCH (08:41)
[2021-04-05] MEDS: Lantus 1000 UNITS/10 ML VIAL SC SCH ×2 (08:42→20:10)
[2021-04-05] MEDS: Lorazepam 2 MG/ML VIAL SLOW IVP PRN (09:17)
[2021-04-05] MEDS: Fentanyl CADD 100 ML IVPB SCH (14:01)
[2021-04-06] MEDS: Lantus 1000 UNITS/10 ML VIAL SC SCH ×2 (00:03→19:54)
[2021-04-06] MEDS: MEROPENEM 1 GM/50 ML 1 GM in Premix Bag 1 BAG IVPB SCH ×4 (00:10→19:53)
[2021-04-06] MEDS: Vancomycin HCl 1 GM in Sodium Chloride 0.9% 250 ML 250 ML IVPB SCH ×2 (01:31→19:39)
[2021-04-06] MEDS: Fentanyl CADD 100 ML IVPB SCH ×2 (02:09→16:35)
[2021-04-06] MEDS: Dexmedetomidine In 0.9 % NaCl 100 ML IVPB SCH ×2 (03:22→08:07)
[2021-04-06] MEDS: Lorazepam 2 MG/ML VIAL SLOW IVP PRN ×3 (03:23→15:19)
[2021-04-06 03:55] LABS: ALT (SGPT) 24 U/L (8-55); AST (SGOT) 17 U/L (5-34); Albumin 3.4 g/dL (3.5-5.0); Alkaline Phosphatase 50 U/L (40-110); BUN (Urea Nitrogen) 30 mg/dL (8.4-25.7); Bilirubin, Total 1.2 mg/dL (0.2-1.2); Calc. Creatinine Clearance 164 mL/min (70-130); Calcium 8.7 mg/dL (7.8-10.44); Globulin 1.7 g/dL (2.4-3.5); Glucose 122 mg/dL (70-105); Protein, Total 5.1 g/dL (6.0-8.3)
[2021-04-06 04:02] LABS: Anion Gap 15 mmol/L (10-20); Carbon Dioxide 37 mmol/L (22-29); Chloride 94 mmol/L (98-107); Potassium 3.3 mmol/L (3.5-5.1); Sodium 143 mmol/L (136-145)
[2021-04-06] MEDS: busPIRone HCl 5 MG TAB PO SCH ×3 (04:18→19:52)
[2021-04-06] MEDS: oxyCODONE 5 MG TAB PO SCH ×3 (04:18→19:51)
[2021-04-06] MEDS: Hydrocortisone Sod Succ/PF 100 mg/2 ml Vial IVP SCH ×3 (04:19→19:52)
[2021-04-06] MEDS ORDERED: Potassium Chloride 20 MEQ TAB PER TUBE SCH (06:00)
[2021-04-06 07:38] LABS: Actual Bicarbonate (HCO3a) 40.7 mEq/L (22-28); Base Excess (BEa) 14.7 mEq/L (-2.0 to +3.0); CO2 Tension 62.7 mmHg (35.0-45.0); Calcium, Ionized (arterial) 1.08 mmol/L (1.12-1.30); Carboxyhemoglobin (COHb) 1.5 gm% (0.0-3.0); Hemoglobin (Hb) 7.6 g/dL (14.0-18.0); O2 Tension (PaO2), arterial 66.6 mmHg (80.0-100.0); Potassium - ABG Lab 3.7 mmol/L (3.70-5.30); Puncture Site RRA; pH, Arterial 7.43 (7.35-7.45)
[2021-04-06 07:44] LABS: ALV-art Gradient 282.825 mmHg (0-20)
[2021-04-06] MEDS: Polyethylene Glycol 3350 17 GM Packet PO SCH (09:00)
[2021-04-06] MEDS: Pantoprazole 40 MG VIAL IVP SCH ×2 (09:00→19:52)
[2021-04-06] MEDS: Spironolactone 25 MG TAB PO SCH (09:01)
[2021-04-06] MEDS: Aspirin 81 mg Enteric Coated Tablet PO SCH (09:01)
[2021-04-06] MEDS: Metolazone 2.5 MG TAB PO SCH (09:01)
[2021-04-06] MEDS: Ascorbic Acid 500 mg Chewable Tablet PO SCH (09:01)
[2021-04-06] MEDS: Cholecalciferol 1,000 UNITS (25 MCG) TAB PO SCH (09:01)
[2021-04-06] MEDS: HumaLOG 300 UNITS/3 ML VIAL SC PRN ×3 (11:15→22:07)
[2021-04-06] MEDS: Propofol 1,000 MG/100 ML VIAL IV PRN ×3 (11:15→22:19)
[2021-04-07] MEDS: fentaNYL Citrate-0.9 % NaCl/PF 100 ML IVPB SCH ×2 (02:54→17:10)
[2021-04-07] MEDS: Propofol 1,000 MG/100 ML VIAL IV PRN ×5 (02:54→22:38)
[2021-04-07 04:15] LABS: ALT (SGPT) 21 U/L (8-55); AST (SGOT) 12 U/L (5-34); Albumin 3.1 g/dL (3.5-5.0); Alkaline Phosphatase 62 U/L (40-110); BUN (Urea Nitrogen) 32 mg/dL (8.4-25.7); Bilirubin, Total 0.6 mg/dL (0.2-1.2); Calc. Creatinine Clearance 140 mL/min (70-130); Calcium 8.6 mg/dL (7.8-10.44); Globulin 1.7 g/dL (2.4-3.5); Glucose 288 mg/dL (70-105); Protein, Total 4.8 g/dL (6.0-8.3)
[2021-04-07 04:30] LABS: Anion Gap 15 mmol/L (10-20); Carbon Dioxide 37 mmol/L (22-29); Chloride 92 mmol/L (98-107); Potassium 3.7 mmol/L (3.5-5.1); Sodium 140 mmol/L (136-145)
[2021-04-07] MEDS: HumaLOG 300 UNITS/3 ML VIAL SC PRN ×4 (05:03→22:39)
[2021-04-07] MEDS: oxyCODONE 5 MG TAB PO SCH ×3 (05:04→21:51)
[2021-04-07] MEDS: busPIRone HCl 5 MG TAB PO SCH ×3 (05:04→21:53)
[2021-04-07] MEDS: Hydrocortisone Sod Succ/PF 100 mg/2 ml Vial IVP SCH ×3 (05:04→21:53)
[2021-04-07] MEDS: MEROPENEM 1 GM/50 ML 1 GM in Premix Bag 1 BAG IVPB SCH ×3 (05:05→21:53)
[2021-04-07 08:10] LABS: Actual Bicarbonate (HCO3a) 45.9 mEq/L (22-28); Base Excess (BEa) 18.8 mEq/L (-2.0 to +3.0); CO2 Tension 76.2 mmHg (35.0-45.0); Calcium, Ionized (arterial) 1.09 mmol/L (1.12-1.30); Carboxyhemoglobin (COHb) 1.2 gm% (0.0-3.0); Hemoglobin (Hb) 7.9 g/dL (14.0-18.0); O2 Tension (PaO2), arterial 78.5 mmHg (80.0-100.0); Potassium - ABG Lab 3.6 mmol/L (3.70-5.30); Puncture Site RRA
[2021-04-07] MEDS: Spironolactone 25 MG TAB PO SCH (09:22)
[2021-04-07] MEDS: Ascorbic Acid 500 mg Chewable Tablet PO SCH (09:22)
[2021-04-07] MEDS: Aspirin 81 mg Enteric Coated Tablet PO SCH (09:23)
[2021-04-07] MEDS: Cholecalciferol 1,000 UNITS (25 MCG) TAB PO SCH (09:23)
[2021-04-07] MEDS: Pantoprazole 40 MG VIAL IVP SCH ×2 (09:25→21:52)
[2021-04-07] MEDS: Polyethylene Glycol 3350 17 GM Packet PO SCH (09:26)
[2021-04-07] MEDS: Metolazone 2.5 MG TAB PO SCH (09:27)
[2021-04-07] MEDS: Lantus 1000 UNITS/10 ML VIAL SC SCH ×2 (09:28→21:52)
[2021-04-07 13:21] LABS: Vancomycin, Trough 14.1 ug/mL
[2021-04-07] MEDS: Vancomycin HCl 1 GM in Sodium Chloride 0.9% 250 ML 250 ML IVPB SCH (14:40)
[2021-04-08] MEDS: Lorazepam 2 MG/ML VIAL SLOW IVP PRN (00:14)
[2021-04-08] MEDS: Propofol 1,000 MG/100 ML VIAL IV PRN ×5 (03:24→21:46)
[2021-04-08 03:56] LABS: #Monocytes 0.6 10x3/uL (0.0-1.1); #Neutrophils 6.6 10x3/uL (1.5-8.4); %Basophils 0.1 % (0.0-2.0); %Eosinophils 0.3 % (0.0-6.0); %Lymphocytes 2.3 % (18.0-47.0); %Monocytes 7.7 % (0.0-10.0); %Neutrophils 88.9 % (40.0-75.0); Hemoglobin 6.8 g/dL (13.5-17.5); Mean Corpuscular HGB CONC 31.2 g/dL (32.0-36.0); Mean Corpuscular Hemoglobin 29.7 pg (27.0-33.0); Mean Corpuscular Volume 95.2 fl (81.2-95.1); Mean Platelet Volume 10.5 fl (7.4-10.4); Platelet Count 180 10x3/uL (150-450); RBC Distribution Width 15.7 % (11.5-14.5); Red Blood Cell (RBC) Count 2.29 10x6/uL (4.32-5.72); White Blood Cell (WBC) Count 7.4 10x3/uL (3.5-10.5)
[2021-04-08 04:09] LABS: ALT (SGPT) 19 U/L (8-55); AST (SGOT) 11 U/L (5-34); Albumin 3.1 g/dL (3.5-5.0); Alkaline Phosphatase 59 U/L (40-110); BUN (Urea Nitrogen) 28 mg/dL (8.4-25.7); Bilirubin, Total 0.5 mg/dL (0.2-1.2); Calc. Creatinine Clearance 138 mL/min (70-130); Calcium 8.9 mg/dL (7.8-10.44); Globulin 1.7 g/dL (2.4-3.5); Glucose 258 mg/dL (70-105); Protein, Total 4.8 g/dL (6.0-8.3)
[2021-04-08 04:19] LABS: Anion Gap 17 mmol/L (10-20); Carbon Dioxide 36 mmol/L (22-29); Chloride 91 mmol/L (98-107); Potassium 3.9 mmol/L (3.5-5.1); Sodium 140 mmol/L (136-145)
[2021-04-08] MEDS: busPIRone HCl 5 MG TAB PO SCH ×3 (04:39→22:14)
[2021-04-08] MEDS: Hydrocortisone Sod Succ/PF 100 mg/2 ml Vial IVP SCH ×3 (04:40→22:14)
[2021-04-08] MEDS: oxyCODONE 5 MG TAB PO SCH ×3 (04:40→22:13)
[2021-04-08] MEDS: MEROPENEM 1 GM/50 ML 1 GM in Premix Bag 1 BAG IVPB SCH ×3 (04:41→22:14)
[2021-04-08] MEDS: HumaLOG 300 UNITS/3 ML VIAL SC PRN ×2 (05:13→16:09)
[2021-04-08] MEDS: fentaNYL Citrate-0.9 % NaCl/PF 100 ML IVPB SCH ×2 (06:12→19:08)
[2021-04-08] MEDS ORDERED: Sodium Chloride 0.9% 250 ML 250 ML ONE (08:00)
[2021-04-08 08:07] LABS: Actual Bicarbonate (HCO3a) 46.8 mEq/L (22-28); Base Excess (BEa) 19.5 mEq/L (-2.0 to +3.0); CO2 Tension 79.3 mmHg (35.0-45.0); Calcium, Ionized (arterial) 1.09 mmol/L (1.12-1.30); Carboxyhemoglobin (COHb) 1.1 gm% (0.0-3.0); Hemoglobin (Hb) 7.6 g/dL (14.0-18.0); O2 Tension (PaO2), arterial 48.6 mmHg (80.0-100.0); Potassium - ABG Lab 3.8 mmol/L (3.70-5.30); Puncture Site RRA; pH, Arterial 7.39 (7.35-7.45)
[2021-04-08 08:10] LABS: ALV-art Gradient 244.425 mmHg (0-20)
[2021-04-08] MEDS: Vancomycin HCl 1 GM in Sodium Chloride 0.9% 250 ML 250 ML IVPB SCH (08:11)
[2021-04-08] MEDS: Pantoprazole 40 MG VIAL IVP SCH ×2 (08:22→22:14)
[2021-04-08] MEDS: Ascorbic Acid 500 mg Chewable Tablet PO SCH (08:22)
[2021-04-08] MEDS: Spironolactone 25 MG TAB PO SCH ×2 (08:22→12:12)
[2021-04-08] MEDS: Aspirin 81 mg Enteric Coated Tablet PO SCH (08:23)
[2021-04-08] MEDS: Metolazone 2.5 MG TAB PO SCH (08:23)
[2021-04-08] MEDS: Cholecalciferol 1,000 UNITS (25 MCG) TAB PO SCH (08:23)
[2021-04-08] MEDS: Lantus 1000 UNITS/10 ML VIAL SC SCH ×2 (08:27→22:16)
[2021-04-08] MEDS: Polyethylene Glycol 3350 17 GM Packet PO SCH (08:33)
[2021-04-08] MEDS ORDERED: Torsemide 20 MG TAB PO SCH (10:00)
[2021-04-08] MEDS ORDERED: Furosemide 100 MG/10 ML VIAL SLOW IVP SCH (11:15)
[2021-04-08] MEDS: Furosemide 100 MG/10 ML VIAL SLOW IVP SCH (22:13)
[2021-04-09 01:51] LABS: Mean Corpuscular HGB CONC 30.5 g/dL (32.0-36.0); Mean Corpuscular Hemoglobin 29.2 pg (27.0-33.0); Mean Corpuscular Volume 95.6 fl (81.2-95.1); Mean Platelet Volume 10.6 fl (7.4-10.4); Platelet Count 184 10x3/uL (150-450); RBC Distribution Width 16.4 % (11.5-14.5); Red Blood Cell (RBC) Count 2.74 10x6/uL (4.32-5.72)
[2021-04-09 01:56] LABS: Vancomycin, Trough 13.5 ug/mL
[2021-04-09 02:23] LABS: ALT (SGPT) 19 U/L (8-55); AST (SGOT) 11 U/L (5-34); Albumin 3.2 g/dL (3.5-5.0); Alkaline Phosphatase 51 U/L (40-110); BUN (Urea Nitrogen) 27 mg/dL (8.4-25.7); Bilirubin, Total 0.7 mg/dL (0.2-1.2); Calc. Creatinine Clearance 159 mL/min (70-130); Globulin 1.7 g/dL (2.4-3.5); Glucose 182 mg/dL (70-105); Protein, Total 4.9 g/dL (6.0-8.3)
[2021-04-09] MEDS: Propofol 1,000 MG/100 ML VIAL IV PRN ×6 (02:30→23:29)
[2021-04-09 02:39] LABS: Anion Gap 17 mmol/L (10-20); Chloride 87 mmol/L (98-107); Potassium 3.5 mmol/L (3.5-5.1); Sodium 143 mmol/L (136-145)
[2021-04-09 02:50] LABS: Carbon Dioxide 43 mmol/L (22-29)
[2021-04-09] MEDS: Vancomycin HCl 1 GM in Sodium Chloride 0.9% 250 ML 250 ML IVPB SCH ×2 (03:00→20:42)
[2021-04-09] MEDS: Hydrocortisone Sod Succ/PF 100 mg/2 ml Vial IVP SCH ×3 (06:00→20:42)
[2021-04-09] MEDS: busPIRone HCl 5 MG TAB PO SCH ×3 (06:00→20:42)
[2021-04-09] MEDS: oxyCODONE 5 MG TAB PO SCH ×3 (06:03→20:42)
[2021-04-09] MEDS: MEROPENEM 1 GM/50 ML 1 GM in Premix Bag 1 BAG IVPB SCH ×3 (06:05→21:37)
[2021-04-09 07:55] LABS: Actual Bicarbonate (HCO3a) 55.3 mEq/L (22-28); Base Excess (BEa) 25.9 mEq/L (-2.0 to +3.0); CO2 Tension 99.6 mmHg (35.0-45.0); Calcium, Ionized (arterial) 1.08 mmol/L (1.12-1.30); Carboxyhemoglobin (COHb) 1.1 gm% (0.0-3.0); O2 Tension (PaO2), arterial 55.2 mmHg (80.0-100.0); Potassium - ABG Lab 3.2 mmol/L (3.70-5.30); Puncture Site RRA; pH, Arterial 7.36 (7.35-7.45)
[2021-04-09] MEDS: Pantoprazole 40 MG VIAL IVP SCH (08:53)
[2021-04-09] MEDS: Ascorbic Acid 500 mg Chewable Tablet PO SCH (08:54)
[2021-04-09] MEDS: Cholecalciferol 1,000 UNITS (25 MCG) TAB PO SCH (08:54)
[2021-04-09] MEDS: Aspirin 81 mg Enteric Coated Tablet PO SCH (08:54)
[2021-04-09] MEDS: Lantus 1000 UNITS/10 ML VIAL SC SCH ×2 (08:54→21:22)
[2021-04-09] MEDS: Polyethylene Glycol 3350 17 GM Packet PO SCH (09:05)
[2021-04-09] MEDS: Metolazone 2.5 MG TAB PO SCH (09:05)
[2021-04-09] MEDS: Furosemide 100 MG/10 ML VIAL SLOW IVP SCH (09:05)
[2021-04-09] MEDS: fentaNYL Citrate-0.9 % NaCl/PF 100 ML IVPB SCH ×2 (09:32→20:40)
[2021-04-09] MEDS: acetaZOLAMIDE Sodium 500 mg Vial IVP SCH ×2 (09:57→20:43)
[2021-04-10] MEDS: Propofol 1,000 MG/100 ML VIAL IV PRN ×6 (02:21→23:29)
[2021-04-10 03:57] LABS: #Monocytes 0.4 10x3/uL (0.0-1.1); #Neutrophils 4.8 10x3/uL (1.5-8.4); %Basophils 0.4 % (0.0-2.0); %Eosinophils 0.5 % (0.0-6.0); %Lymphocytes 4.2 % (18.0-47.0); %Monocytes 6.8 % (0.0-10.0); %Neutrophils 87.6 % (40.0-75.0); Hemoglobin 7.7 g/dL (13.5-17.5); Mean Corpuscular HGB CONC 30.7 g/dL (32.0-36.0); Mean Corpuscular Hemoglobin 29.6 pg (27.0-33.0); Mean Corpuscular Volume 96.5 fl (81.2-95.1); Mean Platelet Volume 10.2 fl (7.4-10.4); Platelet Count 184 10x3/uL (150-450); RBC Distribution Width 15.8 % (11.5-14.5); White Blood Cell (WBC) Count 5.5 10x3/uL (3.5-10.5)
[2021-04-10 04:02] LABS: Phosphorus 2.8 mg/dL (2.3-4.7)
[2021-04-10 04:23] LABS: ALT (SGPT) 18 U/L (8-55); AST (SGOT) 12 U/L (5-34); Albumin 2.8 g/dL (3.5-5.0); Alkaline Phosphatase 49 U/L (40-110); BUN (Urea Nitrogen) 25 mg/dL (8.4-25.7); Bilirubin, Total 0.5 mg/dL (0.2-1.2); Calc. Creatinine Clearance 181 mL/min (70-130); Calcium 8.7 mg/dL (7.8-10.44); Globulin 1.8 g/dL (2.4-3.5); Glucose 116 mg/dL (70-105); Magnesium 2.1 mg/dL (1.6-2.6); Protein, Total 4.6 g/dL (6.0-8.3)
[2021-04-10 04:31] LABS: Anion Gap 16 mmol/L (10-20); Chloride 86 mmol/L (98-107); Sodium 142 mmol/L (136-145)
[2021-04-10 04:34] LABS: Carbon Dioxide 43 mmol/L (22-29); Potassium 2.8 mmol/L (3.5-5.1)
[2021-04-10] MEDS: oxyCODONE 5 MG TAB PO SCH ×3 (05:19→20:58)
[2021-04-10] MEDS: Potassium Chloride 20 MEQ in Premix Bag 1 BAG IVPB SCH ×3 (05:21→10:53)
[2021-04-10] MEDS: Hydrocortisone Sod Succ/PF 100 mg/2 ml Vial IVP SCH ×3 (05:21→20:59)
[2021-04-10] MEDS: busPIRone HCl 5 MG TAB PO SCH ×3 (05:21→20:58)
[2021-04-10] MEDS: MEROPENEM 1 GM/50 ML 1 GM in Premix Bag 1 BAG IVPB SCH ×3 (05:22→20:59)
[2021-04-10 06:53] LABS: Actual Bicarbonate (HCO3a) 49.6 mEq/L (22-28); Base Excess (BEa) 21.4 mEq/L (-2.0 to +3.0); CO2 Tension 76.8 mmHg (35.0-45.0); Calcium, Ionized (arterial) 1.09 mmol/L (1.12-1.30); Carboxyhemoglobin (COHb) 0.9 gm% (0.0-3.0); Hemoglobin (Hb) 11.4 g/dL (14.0-18.0); Potassium - ABG Lab 3.1 mmol/L (3.70-5.30); Puncture Site Arterial Line; pH, Arterial 7.43 (7.35-7.45)
[2021-04-10] MEDS: Ascorbic Acid 500 mg Chewable Tablet PO SCH (08:18)
[2021-04-10] MEDS: Aspirin 81 mg Enteric Coated Tablet PO SCH (08:18)
[2021-04-10] MEDS: Cholecalciferol 1,000 UNITS (25 MCG) TAB PO SCH (08:18)
[2021-04-10] MEDS: fentaNYL Citrate-0.9 % NaCl/PF 100 ML IVPB SCH ×2 (08:19→23:29)
[2021-04-10] MEDS: acetaZOLAMIDE Sodium 500 mg Vial IVP SCH ×2 (08:20→20:58)
[2021-04-10] MEDS: Polyethylene Glycol 3350 17 GM Packet PO SCH (08:23)
[2021-04-10] MEDS ORDERED: Lantus 1000 UNITS/10 ML VIAL SC SCH ×3 (10:33→10:45)
[2021-04-10] MEDS: Lantus 1000 UNITS/10 ML VIAL SC SCH ×2 (10:53→20:59)
[2021-04-10] MEDS ORDERED: Sodium Chloride 0.9% 250 ML 250 ML ONE ×2 (14:22)
[2021-04-10] MEDS: Vancomycin HCl 1 GM in Sodium Chloride 0.9% 250 ML 250 ML IVPB SCH (14:27)
[2021-04-10] MEDS: Pantoprazole 40 MG GRANULES PACKET PO SCH (21:00)
[2021-04-11] MEDS: Propofol 1,000 MG/100 ML VIAL IV PRN ×5 (04:10→20:48)
[2021-04-11 04:35] LABS: #Monocytes 0.3 10x3/uL (0.0-1.1); #Neutrophils 4.4 10x3/uL (1.5-8.4); %Basophils 0.4 % (0.0-2.0); %Eosinophils 0.6 % (0.0-6.0); %Lymphocytes 4.6 % (18.0-47.0); %Monocytes 6.8 % (0.0-10.0); %Neutrophils 87.2 % (40.0-75.0); Mean Corpuscular HGB CONC 30.5 g/dL (32.0-36.0); Mean Corpuscular Hemoglobin 29.4 pg (27.0-33.0); Mean Corpuscular Volume 96.3 fl (81.2-95.1); Mean Platelet Volume 10.5 fl (7.4-10.4); Platelet Count 169 10x3/uL (150-450); Red Blood Cell (RBC) Count 2.72 10x6/uL (4.32-5.72)
[2021-04-11 04:43] LABS: ALT (SGPT) 21 U/L (8-55); AST (SGOT) 16 U/L (5-34); Albumin 2.9 g/dL (3.5-5.0); Alkaline Phosphatase 54 U/L (40-110); BUN (Urea Nitrogen) 22 mg/dL (8.4-25.7); Bilirubin, Total 0.6 mg/dL (0.2-1.2); Calc. Creatinine Clearance 173 mL/min (70-130); Calcium 8.7 mg/dL (7.8-10.44); Globulin 1.5 g/dL (2.4-3.5); Glucose 169 mg/dL (70-105); Protein, Total 4.4 g/dL (6.0-8.3)
[2021-04-11 04:50] LABS: Anion Gap 16 mmol/L (10-20); Carbon Dioxide 38 mmol/L (22-29); Chloride 90 mmol/L (98-107); Potassium 3.2 mmol/L (3.5-5.1); Sodium 141 mmol/L (136-145)
[2021-04-11] MEDS: MEROPENEM 1 GM/50 ML 1 GM in Premix Bag 1 BAG IVPB SCH ×3 (06:09→20:45)
[2021-04-11] MEDS: busPIRone HCl 5 MG TAB PO SCH ×3 (06:09→20:40)
[2021-04-11] MEDS: Hydrocortisone Sod Succ/PF 100 mg/2 ml Vial IVP SCH ×3 (06:10→20:40)
[2021-04-11] MEDS: oxyCODONE 5 MG TAB PO SCH ×3 (06:12→20:39)
[2021-04-11 06:37] LABS: Actual Bicarbonate (HCO3a) 42.3 mEq/L (22-28); Base Excess (BEa) 14.8 mEq/L (-2.0 to +3.0); Calcium, Ionized (arterial) 1.12 mmol/L (1.12-1.30); Carboxyhemoglobin (COHb) 0.6 gm% (0.0-3.0); Hemoglobin (Hb) 9.9 g/dL (14.0-18.0); O2 Tension (PaO2), arterial 59.9 mmHg (80.0-100.0); Potassium - ABG Lab 3.2 mmol/L (3.70-5.30); Puncture Site LRA; pH, Arterial 7.39 (7.35-7.45)
[2021-04-11] MEDS ORDERED: Sodium Chloride 0.9% 250 ML 250 ML ONE (08:21)
[2021-04-11] MEDS: Vancomycin HCl 1 GM in Sodium Chloride 0.9% 250 ML 250 ML IVPB SCH (08:24)
[2021-04-11] MEDS: Polyethylene Glycol 3350 17 GM Packet PO SCH (08:24)
[2021-04-11] MEDS: Cholecalciferol 1,000 UNITS (25 MCG) TAB PO SCH (08:24)
[2021-04-11] MEDS: Pantoprazole 40 MG GRANULES PACKET PO SCH ×2 (08:24→20:40)
[2021-04-11] MEDS: Aspirin 81 mg Enteric Coated Tablet PO SCH (08:24)
[2021-04-11] MEDS: Ascorbic Acid 500 mg Chewable Tablet PO SCH (08:24)
[2021-04-11] MEDS: Lantus 1000 UNITS/10 ML VIAL SC SCH ×2 (09:57→19:47)
[2021-04-11] MEDS: HumaLOG 300 UNITS/3 ML VIAL SC PRN (09:58)
[2021-04-11] MEDS ORDERED: Potassium Chloride 40 MEQ in Premix Bag 1 BAG IVPB SCH (10:00)
[2021-04-11] MEDS: fentaNYL Citrate-0.9 % NaCl/PF 100 ML IVPB SCH (11:27)
[2021-04-11] MEDS: AcetaZOLAMIDE 250 MG TAB PO SCH (20:45)
[2021-04-12] MEDS: Propofol 1,000 MG/100 ML VIAL IV PRN ×5 (01:30→23:25)
[2021-04-12] MEDS: fentaNYL Citrate-0.9 % NaCl/PF 100 ML IVPB SCH ×2 (02:22→14:00)
[2021-04-12 04:57] LABS: ALT (SGPT) 24 U/L (8-55); AST (SGOT) 17 U/L (5-34); Albumin 2.9 g/dL (3.5-5.0); Alkaline Phosphatase 49 U/L (40-110); BUN (Urea Nitrogen) 20 mg/dL (8.4-25.7); Bilirubin, Total 0.8 mg/dL (0.2-1.2); Calc. Creatinine Clearance 189 mL/min (70-130); Calcium 8.7 mg/dL (7.8-10.44); Globulin 1.6 g/dL (2.4-3.5); Glucose 100 mg/dL (70-105); Protein, Total 4.5 g/dL (6.0-8.3)
[2021-04-12 05:04] LABS: Anion Gap 14 mmol/L (10-20); Carbon Dioxide 38 mmol/L (22-29); Chloride 95 mmol/L (98-107); Potassium 3.2 mmol/L (3.5-5.1); Sodium 144 mmol/L (136-145)
[2021-04-12] MEDS: oxyCODONE 5 MG TAB PO SCH ×3 (05:45→21:51)
[2021-04-12] MEDS: busPIRone HCl 5 MG TAB PO SCH ×3 (05:46→21:53)
[2021-04-12] MEDS: MEROPENEM 1 GM/50 ML 1 GM in Premix Bag 1 BAG IVPB SCH ×3 (05:51→21:54)
[2021-04-12] MEDS: Hydrocortisone Sod Succ/PF 100 mg/2 ml Vial IVP SCH ×3 (06:30→21:54)
[2021-04-12] MEDS ORDERED: Potassium Chloride 40 MEQ in Premix Bag 1 BAG IVPB SCH (07:45)
[2021-04-12 08:12] LABS: ALV-art Gradient -5.725 mmHg (0-20); Actual Bicarbonate (HCO3a) 45.3 mEq/L (22-28); Base Excess (BEa) 17.7 mEq/L (-2.0 to +3.0); CO2 Tension 78.5 mmHg (35.0-45.0); Calcium, Ionized (arterial) 1.11 mmol/L (1.12-1.30); Carboxyhemoglobin (COHb) 1.1 gm% (0.0-3.0); Hemoglobin (Hb) 8.6 g/dL (14.0-18.0); O2 Tension (PaO2), arterial 335.4 mmHg (80.0-100.0); Potassium - ABG Lab 3.1 mmol/L (3.70-5.30); Puncture Site LRA; pH, Arterial 7.38 (7.35-7.45)
[2021-04-12] MEDS: Lantus 1000 UNITS/10 ML VIAL SC SCH ×2 (08:17→21:52)
[2021-04-12] MEDS: Polyethylene Glycol 3350 17 GM Packet PO SCH (08:18)
[2021-04-12] MEDS: Pantoprazole 40 MG GRANULES PACKET PO SCH ×2 (08:33→21:53)
[2021-04-12] MEDS: Cholecalciferol 1,000 UNITS (25 MCG) TAB PO SCH (08:33)
[2021-04-12] MEDS: Ascorbic Acid 500 mg Chewable Tablet PO SCH (08:33)
[2021-04-12] MEDS: Aspirin 81 mg Enteric Coated Tablet PO SCH (08:33)
[2021-04-12] MEDS: Potassium Chloride 20 MEQ in Premix Bag 1 BAG IVPB SCH ×2 (08:34→10:25)
[2021-04-12] MEDS: AcetaZOLAMIDE 250 MG TAB PO SCH ×2 (08:34→21:51)
[2021-04-12 14:01] LABS: Actual Bicarbonate (HCO3a) 40.2 mEq/L (22-28); Base Excess (BEa) 13.6 mEq/L (-2.0 to +3.0); CO2 Tension 66.9 mmHg (35.0-45.0); Hemoglobin (Hb) 8.4 g/dL (14.0-18.0); O2 Tension (PaO2), arterial 90.2 mmHg (80.0-100.0); Potassium - ABG Lab 3.5 mmol/L (3.70-5.30); Puncture Site RRA
[2021-04-12 14:05] LABS: ALV-art Gradient 182.675 mmHg (0-20)
[2021-04-12] MEDS ORDERED: Propofol 1,000 MG/100 ML VIAL IV ONE (14:23)
[2021-04-12] MEDS ORDERED: Propofol BOLUS 1,000 MG/100 ML VIAL IV PRN (14:45)
[2021-04-12] MEDS: HumaLOG 300 UNITS/3 ML VIAL SC PRN (21:54)
[2021-04-13] MEDS: Propofol 1,000 MG/100 ML VIAL IV PRN ×5 (02:52→20:38)
[2021-04-13] MEDS: fentaNYL Citrate-0.9 % NaCl/PF 100 ML IVPB SCH ×2 (04:25→13:54)
[2021-04-13 05:12] LABS: ALT (SGPT) 30 U/L (8-55); AST (SGOT) 18 U/L (5-34); Albumin 3.1 g/dL (3.5-5.0); Alkaline Phosphatase 68 U/L (40-110); Anion Gap 12 mmol/L (10-20); BUN (Urea Nitrogen) 20 mg/dL (8.4-25.7); Bilirubin, Total 0.8 mg/dL (0.2-1.2); Calc. Creatinine Clearance 170 mL/min (70-130); Calcium 8.6 mg/dL (7.8-10.44); Carbon Dioxide 37 mmol/L (22-29); Chloride 95 mmol/L (98-107); Globulin 2.3 g/dL (2.4-3.5); Glucose 196 mg/dL (70-105); Potassium 3.2 mmol/L (3.5-5.1); Protein, Total 5.4 g/dL (6.0-8.3); Sodium 141 mmol/L (136-145)
[2021-04-13] MEDS: oxyCODONE 5 MG TAB PO SCH ×3 (05:44→20:32)
[2021-04-13] MEDS: Hydrocortisone Sod Succ/PF 100 mg/2 ml Vial IVP SCH ×3 (05:45→20:33)
[2021-04-13] MEDS: busPIRone HCl 5 MG TAB PO SCH ×3 (05:45→20:32)
[2021-04-13] MEDS: MEROPENEM 1 GM/50 ML 1 GM in Premix Bag 1 BAG IVPB SCH ×3 (05:46→22:41)
[2021-04-13] MEDS: HumaLOG 300 UNITS/3 ML VIAL SC PRN ×3 (05:46→22:03)
[2021-04-13 08:10] LABS: Actual Bicarbonate (HCO3a) 39.2 mEq/L (22-28); Base Excess (BEa) 13.1 mEq/L (-2.0 to +3.0); Calcium, Ionized (arterial) 1.12 mmol/L (1.12-1.30); Carboxyhemoglobin (COHb) 0.8 gm% (0.0-3.0); Hemoglobin (Hb) 9.9 g/dL (14.0-18.0); O2 Tension (PaO2), arterial 61.8 mmHg (80.0-100.0); Potassium - ABG Lab 2.9 mmol/L (3.70-5.30); Puncture Site LRA; pH, Arterial 7.44 (7.35-7.45)
[2021-04-13] MEDS: Cholecalciferol 1,000 UNITS (25 MCG) TAB PO SCH (08:20)
[2021-04-13] MEDS: Ascorbic Acid 500 mg Chewable Tablet PO SCH (08:20)
[2021-04-13] MEDS: AcetaZOLAMIDE 250 MG TAB PO SCH (08:20)
[2021-04-13] MEDS: Pantoprazole 40 MG GRANULES PACKET PO SCH ×2 (08:20→20:33)
[2021-04-13] MEDS: Aspirin 81 mg Enteric Coated Tablet PO SCH (08:20)
[2021-04-13] MEDS: Lantus 1000 UNITS/10 ML VIAL SC SCH ×2 (08:21→20:32)
[2021-04-13] MEDS: Polyethylene Glycol 3350 17 GM Packet PO SCH (08:22)
[2021-04-13] MEDS ORDERED: Potassium Chloride 40 MEQ in Premix Bag 1 BAG IVPB SCH ×2 (08:45→16:00)
[2021-04-13] MEDS: Potassium Chloride 20 MEQ in Premix Bag 1 BAG IVPB SCH ×2 (09:14→11:36)
[2021-04-13] MEDS: Norepinephrine 8 MG/0.9% NS 250 ML IVPB SCH (11:36)
[2021-04-14] MEDS: Propofol 1,000 MG/100 ML VIAL IV PRN ×3 (00:13→07:59)
[2021-04-14] MEDS: fentaNYL Citrate-0.9 % NaCl/PF 100 ML IVPB SCH ×2 (01:24→14:34)
[2021-04-14 04:22] LABS: ALT (SGPT) 37 U/L (8-55); AST (SGOT) 22 U/L (5-34); Albumin 3.4 g/dL (3.5-5.0); Alkaline Phosphatase 65 U/L (40-110); BUN (Urea Nitrogen) 25 mg/dL (8.4-25.7); Bilirubin, Total 0.8 mg/dL (0.2-1.2); Calc. Creatinine Clearance 180 mL/min (70-130); Calcium 8.3 mg/dL (7.8-10.44); Glucose 224 mg/dL (70-105); Protein, Total 5.4 g/dL (6.0-8.3)
[2021-04-14 04:29] LABS: Anion Gap 16 mmol/L (10-20); Carbon Dioxide 32 mmol/L (22-29); Chloride 97 mmol/L (98-107); Sodium 141 mmol/L (136-145)
[2021-04-14] MEDS: oxyCODONE 5 MG TAB PO SCH ×3 (05:00→21:00)
[2021-04-14] MEDS: busPIRone HCl 5 MG TAB PO SCH ×3 (05:00→21:01)
[2021-04-14] MEDS: MEROPENEM 1 GM/50 ML 1 GM in Premix Bag 1 BAG IVPB SCH ×3 (05:01→21:02)
[2021-04-14] MEDS: Hydrocortisone Sod Succ/PF 100 mg/2 ml Vial IVP SCH ×3 (05:01→21:00)
[2021-04-14] MEDS: HumaLOG 300 UNITS/3 ML VIAL SC PRN (05:29)
[2021-04-14 07:15] LABS: Actual Bicarbonate (HCO3a) 37.7 mEq/L (22-28); Base Excess (BEa) 11.5 mEq/L (-2.0 to +3.0); CO2 Tension 60.8 mmHg (35.0-45.0); Calcium, Ionized (arterial) 1.09 mmol/L (1.12-1.30); Carboxyhemoglobin (COHb) 1.2 gm% (0.0-3.0); Hemoglobin (Hb) 8.4 g/dL (14.0-18.0); O2 Tension (PaO2), arterial 84.7 mmHg (80.0-100.0); Potassium - ABG Lab 3.8 mmol/L (3.70-5.30); Puncture Site RRA; pH, Arterial 7.41 (7.35-7.45)
[2021-04-14] MEDS: Aspirin 81 mg Enteric Coated Tablet PO SCH (07:59)
[2021-04-14] MEDS: Ascorbic Acid 500 mg Chewable Tablet PO SCH (07:59)
[2021-04-14] MEDS: Cholecalciferol 1,000 UNITS (25 MCG) TAB PO SCH (07:59)
[2021-04-14] MEDS: Pantoprazole 40 MG GRANULES PACKET PO SCH ×2 (08:00→21:01)
[2021-04-14] MEDS: Lantus 1000 UNITS/10 ML VIAL SC SCH ×2 (08:00→21:04)
[2021-04-14] MEDS: Polyethylene Glycol 3350 17 GM Packet PO SCH (08:01)
[2021-04-14] MEDS: Dexmedetomidine In 0.9 % NaCl 100 ML IVPB SCH ×3 (13:01→20:45)
[2021-04-14] MEDS ORDERED: Fentanyl 100 MCG/2 ML VIAL SLOW IVP PRN (13:51)
[2021-04-14] MEDS: Midazolam HCl 2 mg/2 ml Vial SLOW IVP PRN (15:21)
[2021-04-14] MEDS: Norepinephrine 8 MG/0.9% NS 250 ML IVPB SCH (18:27)
[2021-04-14] MEDS: Acetaminophen 325 MG TAB PO PRN (23:31)
[2021-04-15] MEDS: Dexmedetomidine In 0.9 % NaCl 100 ML IVPB SCH ×6 (00:25→21:20)
[2021-04-15] MEDS: Midazolam HCl 2 mg/2 ml Vial SLOW IVP PRN (01:12)
[2021-04-15] MEDS: fentaNYL Citrate-0.9 % NaCl/PF 100 ML IVPB SCH ×3 (01:12→19:57)
[2021-04-15] MEDS ORDERED: Acetaminophen 650 MG Suppository PR PRN (03:51)
[2021-04-15 03:59] LABS: ALT (SGPT) 54 U/L (8-55); AST (SGOT) 30 U/L (5-34); Albumin 3.2 g/dL (3.5-5.0); Alkaline Phosphatase 87 U/L (40-110); Anion Gap 11 mmol/L (10-20); BUN (Urea Nitrogen) 26 mg/dL (8.4-25.7); Bilirubin, Total 1.1 mg/dL (0.2-1.2); Calc. Creatinine Clearance 190 mL/min (70-130); Calcium 8.2 mg/dL (7.8-10.44); Carbon Dioxide 37 mmol/L (22-29); Chloride 99 mmol/L (98-107); Globulin 2.3 g/dL (2.4-3.5); Glucose 162 mg/dL (70-105); Potassium 4.4 mmol/L (3.5-5.1); Protein, Total 5.5 g/dL (6.0-8.3); Sodium 143 mmol/L (136-145)
[2021-04-15 04:05] LABS: #Monocytes 0.5 10x3/uL (0.0-1.1); #Neutrophils 9.1 10x3/uL (1.5-8.4); %Basophils 0.2 % (0.0-2.0); %Eosinophils 0.1 % (0.0-6.0); %Lymphocytes 4.2 % (18.0-47.0); %Monocytes 4.9 % (0.0-10.0); Hemoglobin 8.1 g/dL (13.5-17.5); Mean Corpuscular HGB CONC 30.3 g/dL (32.0-36.0); Mean Corpuscular Hemoglobin 29.2 pg (27.0-33.0); Mean Corpuscular Volume 96.4 fl (81.2-95.1); Mean Platelet Volume 10.9 fl (7.4-10.4); Platelet Count 123 10x3/uL (150-450); RBC Distribution Width 15.6 % (11.5-14.5); Red Blood Cell (RBC) Count 2.77 10x6/uL (4.32-5.72); White Blood Cell (WBC) Count 10.1 10x3/uL (3.5-10.5)
[2021-04-15] MEDS: busPIRone HCl 5 MG TAB PO SCH ×3 (04:56→21:20)
[2021-04-15] MEDS: Hydrocortisone Sod Succ/PF 100 mg/2 ml Vial IVP SCH ×2 (04:58→21:21)
[2021-04-15] MEDS: oxyCODONE 5 MG TAB PO SCH ×3 (04:58→21:20)
[2021-04-15] MEDS: MEROPENEM 1 GM/50 ML 1 GM in Premix Bag 1 BAG IVPB SCH ×3 (04:59→22:11)
[2021-04-15] MEDS: Ascorbic Acid 500 mg Chewable Tablet PO SCH (08:11)
[2021-04-15] MEDS: Pantoprazole 40 MG GRANULES PACKET PO SCH ×2 (08:11→21:20)
[2021-04-15] MEDS: Aspirin 81 mg Enteric Coated Tablet PO SCH (08:12)
[2021-04-15] MEDS: Cholecalciferol 1,000 UNITS (25 MCG) TAB PO SCH (08:12)
[2021-04-15] MEDS: Lantus 1000 UNITS/10 ML VIAL SC SCH ×2 (08:13→21:22)
[2021-04-15] MEDS: Propofol 1,000 MG/100 ML VIAL IV PRN ×2 (08:14→16:02)
[2021-04-15 08:39] LABS: Actual Bicarbonate (HCO3a) 38.1 mEq/L (22-28); Base Excess (BEa) 11.2 mEq/L (-2.0 to +3.0); Calcium, Ionized (arterial) 1.08 mmol/L (1.12-1.30); Carboxyhemoglobin (COHb) 1.4 gm% (0.0-3.0); Hemoglobin (Hb) 8.8 g/dL (14.0-18.0); Potassium - ABG Lab 4.2 mmol/L (3.70-5.30); Puncture Site RRA; pH, Arterial 7.37 (7.35-7.45)
[2021-04-15] MEDS: Polyethylene Glycol 3350 17 GM Packet PO SCH (10:49)
[2021-04-15] MEDS ORDERED: Rocuronium Bromide 10 MG/ML (10ML VIAL) ONE (14:57)
[2021-04-15] MEDS: Heparin 5,000 UNITS/ML VIAL SC SCH (21:21)
[2021-04-16] MEDS: Norepinephrine 8 MG/0.9% NS 250 ML IVPB SCH (01:15)
[2021-04-16] MEDS: Dexmedetomidine In 0.9 % NaCl 100 ML IVPB SCH ×7 (01:15→21:51)
[2021-04-16] MEDS: Propofol 1,000 MG/100 ML VIAL IV PRN ×3 (01:15→15:25)
[2021-04-16 04:26] LABS: #Monocytes 0.4 10x3/uL (0.0-1.1); #Neutrophils 5.2 10x3/uL (1.5-8.4); %Basophils 0.2 % (0.0-2.0); %Eosinophils 0.3 % (0.0-6.0); %Monocytes 6.3 % (0.0-10.0); %Neutrophils 85.9 % (40.0-75.0); Hemoglobin 7.5 g/dL (13.5-17.5); Mean Corpuscular Hemoglobin 29.2 pg (27.0-33.0); Mean Corpuscular Volume 97.3 fl (81.2-95.1); Mean Platelet Volume 11.5 fl (7.4-10.4); Platelet Count 94 10x3/uL (150-450); RBC Distribution Width 15.9 % (11.5-14.5); Red Blood Cell (RBC) Count 2.57 10x6/uL (4.32-5.72)
[2021-04-16 04:41] LABS: ALT (SGPT) 47 U/L (8-55); AST (SGOT) 25 U/L (5-34); Albumin 2.9 g/dL (3.5-5.0); Alkaline Phosphatase 68 U/L (40-110); Anion Gap 9 mmol/L (10-20); BUN (Urea Nitrogen) 28 mg/dL (8.4-25.7); Bilirubin, Total 0.8 mg/dL (0.2-1.2); Calc. Creatinine Clearance 179 mL/min (70-130); Calcium 8.3 mg/dL (7.8-10.44); Carbon Dioxide 37 mmol/L (22-29); Chloride 101 mmol/L (98-107); Globulin 2.3 g/dL (2.4-3.5); Glucose 122 mg/dL (70-105); Potassium 4.7 mmol/L (3.5-5.1); Protein, Total 5.2 g/dL (6.0-8.3); Sodium 142 mmol/L (136-145)
[2021-04-16] MEDS: busPIRone HCl 5 MG TAB PO SCH ×3 (05:11→20:19)
[2021-04-16] MEDS: oxyCODONE 5 MG TAB PO SCH ×3 (05:12→20:19)
[2021-04-16] MEDS: MEROPENEM 1 GM/50 ML 1 GM in Premix Bag 1 BAG IVPB SCH ×3 (05:15→20:18)
[2021-04-16] MEDS: fentaNYL Citrate-0.9 % NaCl/PF 100 ML IVPB SCH ×2 (06:45→14:20)
[2021-04-16] MEDS: Hydrocortisone Sod Succ/PF 100 mg/2 ml Vial IVP SCH ×2 (08:28→20:20)
[2021-04-16] MEDS: Pantoprazole 40 MG GRANULES PACKET PO SCH ×2 (08:28→20:19)
[2021-04-16] MEDS: Aspirin 81 mg Enteric Coated Tablet PO SCH (08:28)
[2021-04-16] MEDS: Cholecalciferol 1,000 UNITS (25 MCG) TAB PO SCH (08:28)
[2021-04-16] MEDS: Ascorbic Acid 500 mg Chewable Tablet PO SCH (08:28)
[2021-04-16] MEDS: Polyethylene Glycol 3350 17 GM Packet PO SCH (08:29)
[2021-04-16] MEDS: Heparin 5,000 UNITS/ML VIAL SC SCH ×2 (08:29→20:20)
[2021-04-16] MEDS: Lantus 1000 UNITS/10 ML VIAL SC SCH ×2 (08:29→20:23)
[2021-04-16 14:35] LABS: Actual Bicarbonate (HCO3a) 40.9 mEq/L (22-28); Calcium, Ionized (arterial) 1.12 mmol/L (1.12-1.30); Carboxyhemoglobin (COHb) 1.7 gm% (0.0-3.0); Hemoglobin (Hb) 8.9 g/dL (14.0-18.0); O2 Tension (PaO2), arterial 45.6 mmHg (80.0-100.0); Potassium - ABG Lab 4.7 mmol/L (3.70-5.30); Puncture Site RRA; pH, Arterial 7.29 (7.35-7.45)
[2021-04-16] MEDS: HumaLOG 300 UNITS/3 ML VIAL SC PRN ×2 (16:22→20:57)
[2021-04-16] MEDS: Acetaminophen 325 MG TAB PO PRN (20:59)
[2021-04-17] MEDS: fentaNYL Citrate-0.9 % NaCl/PF 100 ML IVPB SCH ×3 (00:33→20:02)
[2021-04-17] MEDS: Dexmedetomidine In 0.9 % NaCl 100 ML IVPB SCH ×6 (01:59→20:02)
[2021-04-17 03:52] LABS: #Monocytes 0.4 10x3/uL (0.0-1.1); #Neutrophils 3.6 10x3/uL (1.5-8.4); %Basophils 0.2 % (0.0-2.0); %Lymphocytes 8.4 % (18.0-47.0); %Monocytes 8.6 % (0.0-10.0); %Neutrophils 82.6 % (40.0-75.0); Hemoglobin 7.1 g/dL (13.5-17.5); Mean Corpuscular Hemoglobin 28.5 pg (27.0-33.0); Mean Corpuscular Volume 98.4 fl (81.2-95.1); Mean Platelet Volume 11.4 fl (7.4-10.4); Platelet Count 82 10x3/uL (150-450); RBC Distribution Width 15.2 % (11.5-14.5); Red Blood Cell (RBC) Count 2.49 10x6/uL (4.32-5.72); White Blood Cell (WBC) Count 4.3 10x3/uL (3.5-10.5)
[2021-04-17 03:54] LABS: ALT (SGPT) 71 U/L (8-55); AST (SGOT) 36 U/L (5-34); Albumin 2.9 g/dL (3.5-5.0); Alkaline Phosphatase 70 U/L (40-110); BUN (Urea Nitrogen) 37 mg/dL (8.4-25.7); Bilirubin, Total 0.9 mg/dL (0.2-1.2); Calc. Creatinine Clearance 166 mL/min (70-130); Calcium 8.2 mg/dL (7.8-10.44); Globulin 2.3 g/dL (2.4-3.5); Glucose 223 mg/dL (70-105); Protein, Total 5.2 g/dL (6.0-8.3)
[2021-04-17 04:02] LABS: Anion Gap 15 mmol/L (10-20); Carbon Dioxide 33 mmol/L (22-29); Chloride 100 mmol/L (98-107); Potassium 5.5 mmol/L (3.5-5.1); Sodium 142 mmol/L (136-145)
[2021-04-17 04:18] LABS: Anisocytosis SLIGHT = 6-15 cells (100X) (0-5/hpf); Large Platelets SLIGHT; Microcytosis SLIGHT = 6-15 cells (100X) (0-5/hpf); Platelet Morphology Comment Appears Decreased
[2021-04-17 04:19] LABS: Ovalocytes SLIGHT = 2-5 cells (100X) (0-1/hpf)
[2021-04-17 04:20] LABS: Hypochromia SLIGHT = 6-15 cells (100X) (0-5/hpf)
[2021-04-17] MEDS: Propofol 1,000 MG/100 ML VIAL IV PRN ×3 (04:42→18:28)
[2021-04-17] MEDS: HumaLOG 300 UNITS/3 ML VIAL SC PRN ×3 (04:54→21:56)
[2021-04-17] MEDS: busPIRone HCl 5 MG TAB PO SCH ×3 (05:37→21:59)
[2021-04-17] MEDS: oxyCODONE 5 MG TAB PO SCH ×3 (05:37→21:58)
[2021-04-17 06:36] VITALS: BMI 31.4
[2021-04-17 07:07] LABS: Actual Bicarbonate (HCO3a) 41.7 mEq/L (22-28); Base Excess (BEa) 13.3 mEq/L (-2.0 to +3.0); CO2 Tension 84.8 mmHg (35.0-45.0); Calcium, Ionized (arterial) 1.14 mmol/L (1.12-1.30); Carboxyhemoglobin (COHb) 1.8 gm% (0.0-3.0); Hemoglobin (Hb) 8.6 g/dL (14.0-18.0); O2 Tension (PaO2), arterial 57.2 mmHg (80.0-100.0); Potassium - ABG Lab 5.1 mmol/L (3.70-5.30); Puncture Site LRA; pH, Arterial 7.31 (7.35-7.45)
[2021-04-17] MEDS: Aspirin 81 mg Enteric Coated Tablet PO SCH (08:12)
[2021-04-17] MEDS: Cholecalciferol 1,000 UNITS (25 MCG) TAB PO SCH (08:12)
[2021-04-17] MEDS: Hydrocortisone Sod Succ/PF 100 mg/2 ml Vial IVP SCH ×2 (08:12→21:54)
[2021-04-17] MEDS: Ascorbic Acid 500 mg Chewable Tablet PO SCH (08:12)
[2021-04-17] MEDS: Heparin 5,000 UNITS/ML VIAL SC SCH ×2 (08:12→21:54)
[2021-04-17] MEDS: Pantoprazole 40 MG GRANULES PACKET PO SCH ×2 (08:12→21:59)
[2021-04-17] MEDS: Lantus 1000 UNITS/10 ML VIAL SC SCH ×2 (08:13→21:56)
[2021-04-17] MEDS: Polyethylene Glycol 3350 17 GM Packet PO SCH ×2 (08:14→08:18)
[2021-04-17] MEDS: Acetaminophen 325 MG TAB PO PRN ×2 (16:22→21:58)
[2021-04-17] MEDS: Norepinephrine 8 MG/0.9% NS 250 ML IVPB SCH (21:57)
[2021-04-18] MEDS: Dexmedetomidine In 0.9 % NaCl 100 ML IVPB SCH ×5 (00:25→19:07)
[2021-04-18] MEDS: Norepinephrine 8 MG/0.9% NS 250 ML IVPB SCH ×4 (05:01→19:09)
[2021-04-18] MEDS: oxyCODONE 5 MG TAB PO SCH ×3 (05:02→22:24)
[2021-04-18] MEDS: busPIRone HCl 5 MG TAB PO SCH ×2 (05:03→12:20)
[2021-04-18] MEDS: HumaLOG 300 UNITS/3 ML VIAL SC PRN ×3 (05:24→16:29)
[2021-04-18 06:24] LABS: ALT (SGPT) 155 U/L (8-55); AST (SGOT) 90 U/L (5-34); Albumin 3.2 g/dL (3.5-5.0); Alkaline Phosphatase 89 U/L (40-110); BUN (Urea Nitrogen) 53 mg/dL (8.4-25.7); Bilirubin, Total 1.8 mg/dL (0.2-1.2); Calc. Creatinine Clearance 112 mL/min (70-130); Calcium 8.4 mg/dL (7.8-10.44); Globulin 2.6 g/dL (2.4-3.5); Glucose 264 mg/dL (70-105); Protein, Total 5.8 g/dL (6.0-8.3)
[2021-04-18 06:31] LABS: Anion Gap 16 mmol/L (10-20); Carbon Dioxide 33 mmol/L (22-29); Chloride 100 mmol/L (98-107); Potassium 6.3 mmol/L (3.5-5.1); Sodium 143 mmol/L (136-145)
[2021-04-18 07:33] LABS: ALV-art Gradient 297.725 mmHg (0-20); Actual Bicarbonate (HCO3a) 39.3 mEq/L (22-28); Base Excess (BEa) 6.7 mEq/L (-2.0 to +3.0); CO2 Tension 134.7 mmHg (35.0-45.0); Calcium, Ionized (arterial) 1.13 mmol/L (1.12-1.30); Carboxyhemoglobin (COHb) 1.7 gm% (0.0-3.0); Hemoglobin (Hb) 9.5 g/dL (14.0-18.0); O2 Tension (PaO2), arterial 104.3 mmHg (80.0-100.0); Potassium - ABG Lab 6.2 mmol/L (3.70-5.30); Puncture Site RRA; pH, Arterial 7.08 (7.35-7.45)
[2021-04-18] MEDS: Polyethylene Glycol 3350 17 GM Packet PO SCH (08:23)
[2021-04-18] MEDS: Cholecalciferol 1,000 UNITS (25 MCG) TAB PO SCH (08:23)
[2021-04-18] MEDS: Pantoprazole 40 MG GRANULES PACKET PO SCH ×2 (08:23→22:25)
[2021-04-18] MEDS: Aspirin 81 mg Enteric Coated Tablet PO SCH (08:23)
[2021-04-18] MEDS: Hydrocortisone Sod Succ/PF 100 mg/2 ml Vial IVP SCH ×2 (08:23→22:23)
[2021-04-18] MEDS: Ascorbic Acid 500 mg Chewable Tablet PO SCH (08:23)
[2021-04-18] MEDS: Heparin 5,000 UNITS/ML VIAL SC SCH ×2 (08:25→22:23)
[2021-04-18] MEDS: Lantus 1000 UNITS/10 ML VIAL SC SCH ×2 (08:25→22:23)
[2021-04-18] MEDS: Propofol 1,000 MG/100 ML VIAL IV PRN (08:26)
[2021-04-18] MEDS: Phenylephrine 40 MG/NS 250 ML 250 ML IVPB SCH (09:23)
[2021-04-18] MEDS ORDERED: Sodium Bicarb 50 MEQ/50 ML VIAL IVP SCH (10:00)
[2021-04-18] MEDS: Phenylephrine 40 MG/NS 250 ML 40 MG in Premix Bag 1 BAG IVPB SCH ×3 (10:23→19:08)
[2021-04-18] MEDS ORDERED: Vancomycin 1.5 GRAM/300 ML BAG 1.5 GM in Premix Bag 1 BAG IVPB SCH (11:29)
[2021-04-18 11:36] LABS: Actual Bicarbonate (HCO3a) 41.4 mEq/L (22-28); Base Excess (BEa) 10.3 mEq/L (-2.0 to +3.0); CO2 Tension 114.7 mmHg (35.0-45.0); Calcium, Ionized (arterial) 1.17 mmol/L (1.12-1.30); Carboxyhemoglobin (COHb) 1.8 gm% (0.0-3.0); Hemoglobin (Hb) 9.2 g/dL (14.0-18.0); O2 Tension (PaO2), arterial 89.7 mmHg (80.0-100.0); Potassium - ABG Lab 6.2 mmol/L (3.70-5.30); Puncture Site RRA; pH, Arterial 7.18 (7.35-7.45)
[2021-04-18 11:37] LABS: ALV-art Gradient 266.025 mmHg (0-20)
[2021-04-18] MEDS: fentaNYL Citrate-0.9 % NaCl/PF 100 ML IVPB SCH (11:41)
[2021-04-18] MEDS ORDERED: VANCOMYCIN 1.75 GM/350 ML BAG 1.75 GM in Premix Bag 1 BAG IVPB SCH (12:00)
[2021-04-18] MEDS ORDERED: MEROPENEM 1 GM/50 ML 1 GM in Premix Bag 1 BAG IVPB SCH ×2 (12:00→20:00)
[2021-04-18] MEDS: Acetaminophen 325 MG TAB PO PRN ×2 (12:19→16:28)
[2021-04-18] MEDS ORDERED: Meropenem 2 GM in Admixture Fee 1 EACH IVPB SCH (14:00)
[2021-04-18 16:08] VITALS: TEMP 98.9
[2021-04-18] MEDS ORDERED: Morphine 2 MG/ML VIAL SLOW IVP PRN (18:07)
[2021-04-18] MEDS ORDERED: Lorazepam 2 MG/ML VIAL SLOW IVP PRN (18:08)
[2021-04-18] MEDS ORDERED: Morphine 4 MG/ML VIAL SLOW IVP PRN (18:22)
[2021-04-18 18:58] VITALS: BP 82/57
[2021-04-19] MEDS ORDERED: Vancomycin HCl 1 GM in Sodium Chloride 0.9% 250 ML 250 ML IVPB SCH (06:00)
[2021-04-19] MEDS ORDERED: Fluconazole In NaCl,Iso-Osm 200 MG in Premix Bag 1 BAG IVPB SCH (12:00)
== END 2021-04-18 22:35 | disposition expired | DRG 870 ==
LOC: CSHICU 22:07 → CSHTELE 03-05 14:14 → CSHICU 03-09 18:32
PROVIDERS: ADMIT Student in an Organized Health Care Education/Training Program; ATTEND Internal Medicine
PROC: 0BH17EZ Insertion of Endotracheal Airway into Trachea, Via Natural or Artificial Opening (ICD-10-PCS; principal; 2021-03-03)
PROC: 5A1955Z Respiratory Ventilation, Greater than 96 Consecutive Hours (ICD-10-PCS; 2021-03-03)
PROC: 8E0ZXY6 Isolation (ICD-10-PCS; 2021-03-03)
PROC: XW033E5 Introduction of Remdesivir Anti-infective into Peripheral Vein, Percutaneous Approach, New Technology Group 5 (ICD-10-PCS; 2021-03-03)
PROC: XW0DXM6 Introduction of Baricitinib into Mouth and Pharynx, External Approach, New Technology Group 6 (ICD-10-PCS; 2021-03-04)
PROC: 3E043XZ Introduction of Vasopressor into Central Vein, Percutaneous Approach (ICD-10-PCS; 2021-03-04)
PROC: 3E0333Z Introduction of Anti-inflammatory into Peripheral Vein, Percutaneous Approach (ICD-10-PCS; 2021-03-04)
PROC: 0BH17EZ Insertion of Endotracheal Airway into Trachea, Via Natural or Artificial Opening (ICD-10-PCS; 2021-03-13)
PROC: 02HV33Z Insertion of Infusion Device into Superior Vena Cava, Percutaneous Approach (ICD-10-PCS; 2021-03-15)
PROC: B548ZZA Ultrasonography of Superior Vena Cava, Guidance (ICD-10-PCS; 2021-03-15)
PROC: 0W9B30Z Drainage of Left Pleural Cavity with Drainage Device, Percutaneous Approach (ICD-10-PCS; 2021-03-21)
PROC: 0W9B30Z Drainage of Left Pleural Cavity with Drainage Device, Percutaneous Approach (ICD-10-PCS; 2021-03-21)
PROC: 30233N1 Transfusion of Nonautologous Red Blood Cells into Peripheral Vein, Percutaneous Approach (ICD-10-PCS; 2021-03-28)
PROC: 02H633Z Insertion of Infusion Device into Right Atrium, Percutaneous Approach (ICD-10-PCS; 2021-03-30)
PROC: B548ZZA Ultrasonography of Superior Vena Cava, Guidance (ICD-10-PCS; 2021-03-30)
PROC: 0B21XEZ Change Endotracheal Airway in Trachea, External Approach (ICD-10-PCS; 2021-04-18)
DX: A41.89 Other specified sepsis (principal); U07.1 COVID-19; J12.82 Pneumonia due to coronavirus disease 2019; J80 Acute respiratory distress syndrome; R65.21 Severe sepsis with septic shock; N17.9 Acute kidney failure, unspecified; E87.0 Hyperosmolality and hypernatremia; E87.3 Alkalosis; J93.83 Other pneumothorax; D62 Acute posthemorrhagic anemia; J95.851 Ventilator associated pneumonia; Z99.11 Dependence on respirator [ventilator] status; Z66 Do not resuscitate; Z51.5 Encounter for palliative care; Z79.899 Other long term (current) drug therapy; R79.89 Other specified abnormal findings of blood chemistry; R79.82 Elevated C-reactive protein (CRP); Z86.018 Personal history of other benign neoplasm; F41.9 Anxiety disorder, unspecified; G47.00 Insomnia, unspecified; Z79.4 Long term (current) use of insulin; E11.65 Type 2 diabetes mellitus with hyperglycemia; J84.10 Pulmonary fibrosis, unspecified; E87.6 Hypokalemia; Z78.1 Physical restraint status; E87.5 Hyperkalemia; E86.0 Dehydration; Z83.1 Family history of other infectious and parasitic diseases; E83.39 Other disorders of phosphorus metabolism; T50.2X5A Adverse effect of carbonic-anhydrase inhibitors, benzothiadiazides and other diuretics, initial encounter; Z99.81 Dependence on supplemental oxygen
CPT/HCPCS: 36415; 36416; 36430; 36569; 36600; 71045; 71275; 80048; 80053; 80202; 81001; 81015; 82274; 82607; 82728; 82746; 82805; 83540; 83550; 83605; 83735; 84100; 84145; 85025; 85027; 85379; 86140; 86850; 86900; 86901; 87040; 87070; 87077; 87086; 87186; 87205; 87449; 87899; 93005; 93010; 93970; 94002; 94003; 94640; 94760; C1751; C9113; J1100; J1120; J1644; J1650; J1720; J1815; J1940; J2001; J2060; J2185; J2248; J2250; J2270; J2543; J2704; J3010; J3370; J3475; J3480; J3490; J7030; J7050; P9016; P9045; P9047